=== PATIENT | female | born 1945 | race Caucasian/White ===

== ENCOUNTER 2019-03-10 14:14 | Inpatient (IN) ==
--- NOTE | 2019-03-10 14:56 | EKG Report ---
Test Performed on : 03/10/2019 2:48:06 PM Test Reason : SOB Blood Pressure : / mmHG Vent. Rate : 078 BPM Atrial Rate : 078 BPM P-R Int : 116 ms QRS Dur : 088 ms QT Int : 352 ms P-R-T Axes : 094 063 052 degrees QTc Int : 401 ms Normal sinus rhythm. Left ventricular hypertrophy with repolarization abnormality Abnormal ECG When compared with ECG of 11-JAN-2016 09:59, ST now depressed in Anterolateral leads T wave inversion now evident in Lateral leads Unconfirmed Result
[2019-03-10 15:16] LABS: ALLEN TEST YES; BLOOD TYPE ARTERIAL; HCO3-(ACT) 25.6 mmoll (20.0-26.0); METHB 0.9 % (0.0-1.5); O2(CT) 19.5 mL/dL (15.0-23.0); O2HB 92.7 % (95.0-99.0); PCO2(98.6) 57 mmHg (35-45); PO2(98.6) 86 mmHg (60-100); SAMPLE BLOOD; SAO2 98.1 % (95.0-100.0); THB 14.9 g/dL (11.5-17.4); pH(98.6) 7.31 (7.35-7.45)
[2019-03-10 15:17] LABS: MODALITY VENTIMASK
--- NOTE | 2019-03-10 15:41 | Diag Imaging Result Doc PS360 ---
EXAM: CHEST-1 VIEW INDICATION: sob TECHNIQUE: One view COMPARISON: None. FINDINGS: The lungs appear hyperinflated suggesting likely COPD. There are mild opacities at both lung bases suggesting atelectasis and/or minimal infiltrate. There is no discrete pleural fluid collection or pneumothorax. The cardiomediastinal silhouette and central vasculature are grossly unremarkable. IMPRESSION: Likely COPD and very vague opacities at the lung bases likely representing mild atelectasis and/or minimal infiltrate. Electronically signed by Mahendra Borges 03/10/2019 3:39 PM
[2019-03-10 15:47] LABS: BASO# 0.02 X1000 (0.0-0.2); BASO% 0.1 % (0.0-0.8); EOS# 0.01 X1000 (0.0-0.7); EOS% 0.1 % (0.0-10.0); HEMATOCRIT 44.1 % (37.0-47.0); HEMOGLOBIN 14.6 g/dL (12.0-16.0); IMM GRAN# 0.07 X1000 (0.0-0.04); IMM GRAN% 0.4 % (0.0-0.5); LYMPH% 4.1 % (20.5-51.1); MCH 31.9 PG (27-31); MCHC 33.1 g/dL (33-37); MCV 96.3 FL (81-99); MONO# 2.18 X1000 (0.11-0.59); MONO% 11.2 % (1.7-9.3); MPV 11.4 FL (7.4-10.4); NEUT# 16.34 X1000 (1.4-6.5); NEUT% 84.1 % (42.2-75.2); PLT 255 X1000 (130-400); RBC 4.58 XMIL (4.2-5.4); RDW 14.3 % (11.5-14.5); WBC 19.42 X1000 (4.8-10.8)
[2019-03-10 16:25] LABS: ALB/GLOB RATIO 0.9; ALBUMIN 3.6 g/dL (3.5-5.0); CALCIUM 9.7 mg/dL (8.8-10.2); POTASSIUM 5.5 mmol/L (3.5-5.1); TOTAL BILIRUBIN 1.21 mg/dL (0.20-1.00); TOTAL PROTEIN 7.4 g/dL (6.3-8.3)
[2019-03-10] MEDS ORDERED: ROCEPHIN 1 GM in NS 50 ML IV ONE (16:45)
[2019-03-10] MEDS ORDERED: ZOFRAN IV PRN (17:44)
[2019-03-10] MEDS: SOLU-MEDROL IV SCH ×2 (17:57→23:52)
[2019-03-10] MEDS ORDERED: NS 500 ML IV ONE (17:59)
[2019-03-10] MEDS ORDERED: NEXIUM IV SCH (18:00)
[2019-03-10] MEDS ORDERED: SODIUM CHLORIDE 0.9% INJ SCH (18:00)
--- NOTE | 2019-03-10 18:53 | HISTORY AND PHYSICAL ---
ADDENDUM REPORT I agree with most components of history, physical dictated by the nurse practitioner. HISTORY OF PRESENT ILLNESS: In brief, Ms. Barker is a 73-year-old lady with past medical history of COPD, tobacco abuse, hypothyroidism, anxiety, essential hypertension, moderate to severe aortic stenosis, who comes in with chief complaints of worsening shortness of breath since about 24 hours duration. Apparently, patient has had multiple COPD exacerbations over last 3 months and she has been to [facility]. According to records, she did require steroids at least twice in the last 2 months. She was never short free of shortness of breath over the last 4 weeks or so. However, it suddenly started getting worse yesterday. The patient continues to smoke heavily, so she decided to come to the [facility] Emergency Room where she was found to have acute hypercarbic respiratory failure and respiratory distress, so hospitalist team was consulted for further management. At the time of my evaluation, patient and her is at bedside. The patient has been actively coughing when she took off her 50% oxygen mask. Her oxygen saturation went down as low as 70% when I was present. She denies known history of coronary artery disease, congestive heart failure, DVT or PE. She denies known history of kidney disease. VITAL SIGNS: Temperature 97.9 degrees, pulse 75, respiratory rate 26, blood pressure 96/60 76% on room air. PHYSICAL EXAMINATION: GENERAL: She has tripod body position in severe respiratory distress. Oral cavity is moist, significantly decreased air entry bilateral lung carey with end-expiratory wheezes. S1, S2 normal. Tachycardic. No murmur, rub, or gallop. ABDOMEN: Soft, nontender. No lower extremity edema. LABORATORY DATA: Suggestive of leukocytosis, eosinophil count of 0.1%. Acute hypoxic hypercarbic respiratory failure, hyponatremia, hypokalemia, hypochloremia acute kidney injury, elevated proBNP. MICROBIOLOGY: Blood cultures are in lab. IMAGING: Chest x-ray had COPD with very vague opacities in lung bases. ASSESSMENT AND PLAN: 1. Acute hypoxic hypercarbic respiratory failure because of chronic obstructive pulmonary disease with acute exacerbation. 2. Active tobacco abuse. 3. Hyponatremia. 4. Hypokalemia. 5. Acute kidney injury. 6. Hypothyroidism. 7. Essential hypertension. PLAN: The patient's medical condition is critical. I discussed with the nursing team about starting her on stat BiPAP to keep as an SpO2 88 to 92 percent. I will also repeat ABG. I will start her on intravenous ceftriaxone, azithromycin. We will follow up with blood culture, sputum culture and urine antigens. The patient's code status is full as per discussed with the patient and her at bedside. CODE status is FULL as per discussion with patient and her . cc: Jun Gaitan MD MTDD
--- NOTE | 2019-03-10 19:49 | HISTORY AND PHYSICAL ---
CHIEF COMPLAINT: Shortness of breath. HISTORY OF PRESENT ILLNESS: This is a 73-year-old female with a history of COPD who presents to the emergency room complaining of shortness of breath with a productive cough with green secretions. She states that she was in her normal state of health until Sunday morning. She got up, got ready to go to [employer]ikhism and stated just that by the time she got ready she was exhausted and was unable to go. She has been tired since then and had increasing shortness of breath and cough. On arrival to the emergency room, she had an O2 saturation of 70 to 76 on room air. This did increase to the 88 to 90 range on 5 L nasal cannula, although when oxygen mask was removed, O2 saturations did fall into the high 70s, 80% to 81% range. She is speaking in 2 to 3 word phrases. She is sitting in a tripod position. Her chest x-ray reveals COPD with lower lobe bilateral atelectasis versus infiltrate. PAST MEDICAL HISTORY: 1. Chronic obstructive pulmonary disease. 2. Hypertension. 3. Hypothyroid. 4. Aortic stenosis. PAST SURGICAL HISTORY: Hysterectomy. SOCIAL HISTORY: She still smokes about a pack a day. She denies alcohol or illicit drug use. ALLERGIES: Symbicort, which causes hives. HOME MEDICATIONS: A list will be obtained by the nursing staff, and once verified, we will review and restart it as appropriate. REVIEW OF SYSTEMS: Discussed with patient with pertinent positives stated in HPI. She denied any syncope, dizziness, chest pain, palpitations, any nausea, vomiting, diarrhea, constipation, black or bloody vomitus or stools, any hematuria, dysuria, frequency, urgency. PHYSICAL EXAMINATION: GENERAL: This is a 73-year-old female who is sitting up in the bed in tripod position in mild distress. VITAL SIGNS: Blood pressure is 96/62 with a heart rate of 86, respirations are 22 to 26, O2 saturation are 86% to 88% or 90% on 5 L Ventimask. When mask is removed, saturation goes down to 78% to 80%. HEENT: Head is normocephalic, atraumatic. Mucous membranes are moist. NECK: Supple. Trachea midline. CARDIOVASCULAR: Regular rate and rhythm. S1 and S2 appreciated. She has no lower extremity edema. Calves are nontender bilateral. Peripheral pulses palpable x4 extremities. PULMONARY: Breath sounds with inspiratory and expiratory wheezes scattered throughout. She does have rhonchi that do not clear to cough. Chest rises and falls symmetric with respiration. GASTROINTESTINAL: Abdomen is soft, nontender, nondistended with bowel sounds in all 4 quadrants. NEUROLOGIC: She is alert and oriented x3. SKIN: Warm and dry. LABORATORY DATA: WBC is 19.4 with hemoglobin 14.6, hematocrit 44.1, and platelets 255,000. ABGs: pH is 7.3 with pCO2 of 57, pO2 of 86, and bicarb of 25.6. Sodium 127, potassium 5.5, BUN 24, creatinine 1 with a glucose of 121. Blood cultures are pending. IMAGING: Chest x-ray revealed COPD and vague opacities at the lung bases representing mild atelectasis and/or minimal infiltrate. ASSESSMENT AND PLAN: 1. Pneumonia bilateral lower lung bases. 2. Chronic obstructive pulmonary disease acute on chronic exacerbation. 3. Acute hypercarbic hypoxic respiratory failure. 4. Continued tobacco use. 5. Hypothyroid. 6. Hyponatremia. 7. Hyperkalemia. PLAN: The patient will be admitted to CICU with telemetry, with BiPAP to maintain a saturation of 88% to 92%. ABGs in an hour after BiPAP and then daily. Legionella urine as well as strep pneumoniae Sputum C&S. CBC, CMP,thyroid, and magnesium in the morning. DuoNebs q.4 hours or q.2 hours p.r.n. steroids to taper. Gentle hydration with saline at 50 an hour. Rocephin and azithromycin, and then further antibiotics will be culture driven. identify her home medications, and continue these as appropriate once she can tolerate. incentive spirometer. Plan discussed with Dr Gaitan. Further treatments pending hospital course. Dictated by CARTER Contreras for Jun Gaitan MD cc: CARTER Contreras MD I agree with most components of history, physical, assessment and plan. A separate addendum has been dictated. [id number]
[2019-03-10] MEDS: DUONEB (A & A) INH SCH ×2 (19:50→23:26)
[2019-03-10] MEDS: LOVENOX SUBQ SCH (21:10)
[2019-03-10 21:20] LABS: ALLEN TEST YES; BLOOD TYPE ARTERIAL; HCO3-(ACT) 24.8 mmoll (20.0-26.0); METHB 1.4 % (0.0-1.5); O2(CT) 19.7 mL/dL (15.0-23.0); O2HB 94.4 % (95.0-99.0); PO2(98.6) 118 mmHg (60-100); SAMPLE BLOOD; SAO2 99.3 % (95.0-100.0); THB 14.7 g/dL (11.5-17.4)
[2019-03-10] MEDS: ZITHROMAX 500 MG/NS 500 MG/250 ML IVPB IV SCH (21:21)
[2019-03-10 21:22] LABS: MODALITY BI PAP
[2019-03-10 21:23] LABS: PCO2(98.6) 78 mmHg (35-45)
[2019-03-10] MEDS ORDERED: TYLENOL PO PRN (21:33)
[2019-03-10] MEDS: XANAX PO PRN (22:11)
[2019-03-11 04:35] LABS: ALLEN TEST YES; BE -1.2 mmoll (-3.0-3.0); BLOOD TYPE ARTERIAL; METHB 1.3 % (0.0-1.5); O2(CT) 15.7 mL/dL (15.0-23.0); O2HB 95.1 % (95.0-99.0); PO2(98.6) 110 mmHg (60-100); SAMPLE BLOOD; SAO2 99.2 % (95.0-100.0); THB 11.6 g/dL (11.5-17.4); pH(98.6) 7.13 (7.35-7.45)
[2019-03-11 04:37] LABS: MODALITY BI PAP
[2019-03-11 04:38] LABS: PCO2(98.6) 90 mmHg (35-45)
[2019-03-11] MEDS ORDERED: ALBUTEROL NEB INH ONE (04:59)
[2019-03-11] MEDS: SOLU-MEDROL IV SCH ×3 (05:03→16:44)
[2019-03-11] MEDS ORDERED: SOLU-CORTEF IV ONE (05:57)
[2019-03-11] MEDS ORDERED: NORCURON IV ONE ×2 (06:05→07:25)
[2019-03-11 06:14] LABS: BASO# 0.01 X1000 (0.0-0.2); BASO% 0.1 % (0.0-0.8); HEMATOCRIT 43.5 % (37.0-47.0); HEMOGLOBIN 13.8 g/dL (12.0-16.0); IMM GRAN# 0.05 X1000 (0.0-0.04); IMM GRAN% 0.3 % (0.0-0.5); LYMPH# 0.26 X1000 (1.2-3.4); LYMPH% 1.8 % (20.5-51.1); MCH 31.7 PG (27-31); MCHC 31.7 g/dL (33-37); MCV 99.8 FL (81-99); MONO# 0.18 X1000 (0.11-0.59); MONO% 1.3 % (1.7-9.3); MPV 11.8 FL (7.4-10.4); NEUT# 13.86 X1000 (1.4-6.5); NEUT% 96.5 % (42.2-75.2); PLT 217 X1000 (130-400); RBC 4.36 XMIL (4.2-5.4); RDW 13.9 % (11.5-14.5); WBC 14.36 X1000 (4.8-10.8)
[2019-03-11] MEDS ORDERED: STERILE WATER INJ. ONE ×2 (06:37→06:42)
[2019-03-11] MEDS ORDERED: NS 1,000 ML ONE (07:02)
--- NOTE | 2019-03-11 07:04 | Diag Imaging Result Doc PS360 ---
EXAM: CHEST-PORTABLE 03/11/2019 HISTORY: et tube placement TECHNIQUE: AP portable at 0651 COMMENT: There is an endotracheal tube with its tip well above the tia. There is COPD with hyperinflation and flattening of the hemidiaphragms. There is ill-defined opacity in the costophrenic angle regions bilaterally. This was also present on 03/10/2019 but the degree of hyperinflation is worse. IMPRESSION: COPD with exacerbation. Electronically signed by Jluis Fields 03/11/2019 7:02 AM
[2019-03-11] MEDS ORDERED: SODIUM CHLORIDE 0.9% INJ SCH (07:10)
[2019-03-11] MEDS ORDERED: AMIDATE IV ONE (07:25)
[2019-03-11] MEDS: DUONEB (A & A) INH SCH ×5 (07:32→22:53)
[2019-03-11] MEDS ORDERED: NS 1,000 ML IV ONE ×2 (07:37→11:54)
[2019-03-11 07:44] LABS: BANDS 12 % (0-1); LARGE PLATELETS 1+; LYMPHS 2 % (21-51); SEGS 86 % (42-75)
[2019-03-11 08:07] LABS: ALLEN TEST YES; BE -4.1 mmoll (-3.0-3.0); BLOOD TYPE ARTERIAL; HCO3-(ACT) 21.7 mmoll (20.0-26.0); METHB 1.3 % (0.0-1.5); O2(CT) 17.1 mL/dL (15.0-23.0); O2HB 96.7 % (95.0-99.0); PCO2(98.6) 47 mmHg (35-45); PO2(98.6) 185 mmHg (60-100); SAMPLE BLOOD; SAO2 100.2 % (95.0-100.0); SRATE 18 BPM; THB 12.3 g/dL (11.5-17.4); TVOL 450 mL; pH(98.6) 7.29 (7.35-7.45)
[2019-03-11 08:08] LABS: MODALITY VENTILATOR
[2019-03-11 08:35] LABS: ALB/GLOB RATIO 1.3; ALBUMIN 3.5 g/dL (3.5-5.0); CALCIUM 9.4 mg/dL (8.8-10.2); CREATININE 1.1 mg/dL (0.5-0.9); TOTAL BILIRUBIN 0.28 mg/dL (0.20-1.00); TOTAL PROTEIN 6.2 g/dL (6.3-8.3)
[2019-03-11 08:46] LABS: POTASSIUM 6.1 mmol/L (3.5-5.1)
[2019-03-11] MEDS ORDERED: SPIRIVA INH SCH (09:09)
[2019-03-11] MEDS ORDERED: ALBUTEROL 0.5% INH CONC FOR HYPERKALEMIA INH ONE (09:10)
[2019-03-11 09:33] LABS: URINE SOURCE CATH
--- NOTE | 2019-03-11 09:42 | Diag Imaging Result Doc PS360 ---
EXAM: CHEST-PORTABLE 03/11/2019 HISTORY: NGT placement TECHNIQUE: AP portable semiupright at 0934 COMMENT: There is an endotracheal tube with its tip slightly below the thoracic inlet and an NG tube which passes below the diaphragm into the fundus of the stomach. There is hyper inflation of the lungs. There are ill-defined opacities in both costophrenic angle regions. This was also the case on the previous study at 0651. IMPRESSION: COPD. Bibasilar atelectasis versus fibrosis. Electronically signed by Jluis Fields 03/11/2019 9:40 AM
[2019-03-11] MEDS: LACTULOSE NG SCH ×2 (10:04→21:01)
[2019-03-11] MEDS ORDERED: PROTONIX PO SCH (10:15)
[2019-03-11 10:16] LABS: BILIRUBIN URINE NEGATIVE (NEGATIVE); BLOOD URINE NEGATIVE (NEGATIVE); COLOR YELLOW; GLUCOSE URINE NEGATIVE (NEGATIVE); KETONE URINE NEGATIVE (NEGATIVE); LEUKOCYTES URINE NEGATIVE (NEGATIVE); NITRITE URINE NEGATIVE (NEGATIVE); PH URINE 5.5; PROTEIN URINE 30 mg/dL (NEGATIVE); SP GRAVITY URINE 1.019; TURBIDITY URINE HAZY (CLEAR); UROBILINOGEN URINE NORMAL (NORMAL)
[2019-03-11 10:18] LABS: UR EPITHELIAL CELLS <10 /HPF (<10); URINE BACTERIA NEGATIVE /HPF; URINE RBC <10 /HPF (<10); URINE WBC <10 /HPF (<10)
[2019-03-11] MEDS: MORPHINE IV PRN ×2 (10:30→21:02)
--- NOTE | 2019-03-11 10:39 | PROGRESS NOTE ---
DATE: 03/11/2019 INTERVAL HISTORY: Overnight, the patient's pCO2 started increasing despite being on BiPAP, and she had started becoming hypotensive, and so the emergency room physician had intubated her. I evaluated her post intubation at around 7 a.m. On my initial evaluation, she had minimal air entry bilaterally, and after suctioning the air entry had increased. Currently, she is sedated, not responding to painful stimuli. VITALS: Temperature 97.7 degrees, pulse 62, respiratory rate 20, blood pressure 110/70 saturating 100% on mechanical ventilator. PHYSICAL EXAMINATION: HEENT: Pupils bilaterally equal reacting to light. Oral cavity has secretions. Respiratory: Significantly decreased air entry bilaterally with minimal air movement. She has mild crackles bilateral lung carey. Cardiovascular: S1, S2 normal. She had systolic murmur crescendo-decrescendo affecting second intercostal space with radiation to right carotid. No rub or gallop. Abdomen: Soft, nontender. Extremities: No lower extremity edema. TUBES/CATHETERS: She has endotracheal tube and urine catheter. LABS: Suggestive of improving leukocytosis. Normal hemoglobin, normal platelet count. Repeat blood gas after intubation suggests improvement in pH and pCO2. Normal lactate. Chemistry suggestive of acute kidney injury, hyperkalemia, improvement in hyponatremia and hypochloremia. Negative troponin's. Her TSH was low. Sputum culture and blood culture are in lab. EKG did have left ventricular hypertrophy with repolarization abnormality and some ST depressions in lateral leads, likely in the setting of profound hypoxia in current condition. She denies any known history of coronary artery disease. ASSESSMENT AND PLAN: 1. Acute hypoxic hypercarbic respiratory failure and septic shock due to chronic obstructive pulmonary disease acute exacerbation. Continue albuterol ipratropium nebulization, intravenous steroids, and IV Antibiotics and start norepinephrine to maintain MAP more than 65 mmHg for suspected septic shock from suspected pneumonia. Keep patient on De La Torre catheter for close input and output monitoring. The patient was yesterday counseled about stopping tobacco use, which is likely the trigger. 2. Hyponatremia, hypochloremia, acute kidney injury and hyperkalemia. Continue intravenous fluid resuscitation. Follow-up repeat basic metabolic panel. I will give her albuterol inhaled and lactulose for her hyperkalemia. 3. Hypothyroidism with low thyroid stimulating hormone. Once enteral access is established, I will start her on levothyroxine. Essential hypertension, currently hypotensive. 4. Disposition: Patient's condition is critical. More than 30 minutes of critical care time was spent in taking care of this patient. I went to the bedside. The patient's son was there. I explained to him about her critical condition and answered all of his questions. cc: Jun Gaitan MD MTDD
[2019-03-11] MEDS: SYNTHROID PO SCH (10:54)
[2019-03-11] MEDS: PRILOSEC ORAL SUSPENSION PO SCH (11:15)
[2019-03-11] MEDS: DIPRIVAN 1% 1,000 MG/100 ML BOTTLE IV SCH ×2 (11:15→22:14)
[2019-03-11 11:29] LABS: IRON SATURATION 9 %; TIBC 170 ug/dL; TOTAL IRON 16 ug/dL (49-151); UNBOUND IRON 154 ug/dL (112-346)
[2019-03-11] MEDS ORDERED: D50W SYRINGE IV ONE (11:48)
[2019-03-11] MEDS ORDERED: HUMULIN R IV ONE (11:48)
[2019-03-11 11:56] LABS: FERRITIN 600 ng/mL (13-150)
--- NOTE | 2019-03-11 12:20 | EKG Report ---
Test Performed on : 03/11/2019 07:03:58 AM Test Reason : ED. NO EKG ORDER FOR MUSE Blood Pressure : / mmHG Vent. Rate : 057 BPM Atrial Rate : 057 BPM P-R Int : 114 ms QRS Dur : 110 ms QT Int : 440 ms P-R-T Axes : 087 054 -29 degrees QTc Int : 428 ms Sinus bradycardia. Nonspecific ST abnormality Abnormal QRS-T angle, consider primary T wave abnormality Abnormal ECG When compared with ECG of 10-MAR-2019 14:48, (Unconfirmed) ST less depressed in Lateral leads T wave inversion now evident in Inferior leads T wave inversion no longer evident in Lateral leads Unconfirmed Result
--- NOTE | 2019-03-11 13:09 | PROVIDER DOCUMENTATION ---
This chart was entered by Macarena Ponce Scribe, acting as scribe for Ricky Davies MD. HPI-Respiratory General - General Source: patient - History of Present Illness-Resp Quality of Pain: reports: tightness Severity in ED: reports: moderate Onset/Duration: reports: 24 hours ago Timing: reports: still present, getting worse Associated Symptoms: reports: shortness of breath Similar Symptoms Previously?: Yes Recently seen or treated by another doctor?: No <Ricky Davies - Last Filed: 03/10/19 17:04> <Opal Cain - Last Filed: 03/11/19 07:31> - General Chief Complaint: Shortness of Breath Stated Complaint: COPD Time Seen by Provider: 03/10/19 15:07 Allergies/Adverse Reactions: Patient Allergies Allergy/AdvReac Type Severity Reaction Status Date / Time budesonide [From Symbicort] Allergy HIVES Verified 01/11/16 09:26 formoterol fumarate * Allergy HIVES Verified 01/11/16 09:26 [From Symbicort] Home Medications: Home Medication List Medication Instructions Recorded Confirmed Last Taken Type Alprazolam 0.25 mg PO PRN PRN 01/11/16 03/10/19 01/11/16 22:00 History Atenolol 25 mg PO DAILY 01/11/16 03/10/19 01/12/16 05:30 History LISINOpril [Prinivil] 5 mg PO DAILY 01/11/16 03/10/19 01/12/16 05:30 History Levothyroxine [Synthroid] 75 microgm PO DAILY 01/11/16 03/10/19 01/12/16 05:30 History Fluticasone/Vilanterol [Breo 1 inh INH ORDERED 03/10/19 03/10/19 Unknown History Ellipta 200-25 Mcg INH] Gabapentin 100 mg PO DAILY 03/10/19 03/10/19 Unknown History Mirtazapine 15 mg PO 03/10/19 Unknown History Tiotropium [place] Inhaler 1 inh INH ORDERED 03/10/19 03/10/19 Unknown History [Spiriva] - History of Present Illness-Resp Nature of Presenting Problem: Patient is a 73 year old female who presents with shortness of breath. Patient's O2 sat was 76% on room air on arrival to the ED. History of COPD. (Ricky Davies) Review of Systems - Adult - REVIEW OF SYSTEMS - ADULT ROS:: limited per condition Constitutional: reports: no symptoms reported Eyes: reports: no symptoms reported Ears, Nose, Mouth & Throat: reports: no symptoms reported Cardiovascular: reports: no symptoms reported Respiratory: reports: see HPI, shortness of breath. denies: cough, wheezing Gastrointestinal: reports: no symptoms reported Genitourinary: reports: no symptoms reported Musculoskeletal: reports: no symptoms reported Integumentary: reports: no symptoms reported Neurological: reports: no symptoms reported Psychiatric: reports: no symptoms reported Endocrine: reports: no symptoms reported Hematologic/Lymphatic: reports: no symptoms reported Allergic/Immunologic: reports: no symptoms reported All Other Systems: Reviewed and Negative <Ricky Davies - Last Filed: 03/10/19 17:04> Past History - Adult - PAST MEDICAL HISTORY-ADULT Review of Records: reports: Old Records Reviewed, Nursing Assessment Review, Medications Reviewed, Social history reviewed & non-contributory. Major Childhood Illnesses: reports: denies history Cardiovascular: reports: HTN Respiratory: reports: COPD Gastrointestinal: reports: denies history Obstetrical/Gynecological: reports: denies history Genitourinary: reports: denies history Musculoskeletal: reports: denies history Neurological: reports: denies history Psychiatric: reports: anxiety Endocrine/Immune: reports: thyroid disorder Other Conditions: reports: denies history - PRIOR SURGERIES/PROCEDURES Surgical/Procedure History: reports: reviewed, not pertinent - IMMUNIZATION STATUS Childhood Immunizations: See Nurse Assessment Flu Vaccine: See Nurse Assessment - FAMILY HISTORY Family History: reviewed, not pertinent - SOCIAL HISTORY Smoking: cigarettes, less than 1 pack/day Provider spent 3-5 mins advising pt. on dangers of tobacco.: Discussed manners to quit use, and f/u contacts for add'l counseling. Substance Use: denies Living Situation: family <Ricky Davies - Last Filed: 03/10/19 17:04> Physical Exam-General - PHYSICAL EXAM-ADULT Initial Vital Signs Reviewed: Yes - CONSTITUTIONAL General Appearance: alert, moderate distress. negative: lethargic - RESPIRATORY Respiratory: chest non-tender, respiratory distress (moderate), decreased breath sounds (bilateral), wheezing (bilateral), increased rate. negative: normal breath sounds - CARDIOVASCULAR Cardiovascular: normal peripheral pulses, regular rate, rhythm. negative: tachycardia - GASTROINTESTINAL (ABDOMEN) Abdominal Exam: normal bowel sounds, non tender, soft. negative: guarding - MUSCULOSKELETAL Extremity: normal inspection. negative: deformity, erythema, swelling - SKIN Integumentary: normal color, normal turgor, warm/dry. negative: diaphoresis, rash - NEUROLOGIC Neurologic: grossly normal. negative: aphasia, facial droop - PSYCHIATRIC Psych/Mental Status: normal mood/affect, oriented x 3. negative: anxious <Ricky Davies - Last Filed: 03/10/19 17:04> - HEART Score HEART Score: History: Slightly Suspicious HEART Score: ECG: Non-Specific Repolarization Disturbance/LBBB/PM HEART Score: Age: > or = 65 Years HEART Score: Risk Factors for Atherosclerotic Disease: 1 or 2 Risk Factors HEART Score: Troponin: < or = Normal Limit Total HEART Score:: 4 <Ricky Davies - Last Filed: 03/10/19 17:04> Progress - PLAN OF CARE/RESULTS Result Diagrams: 03/10/19 15:16 03/10/19 15:16 - EKG 1 Time of EKG reading by physician:: 14:48 EKG Read and Signed by:: Ricky Davies EKG Interpretation (*Must complete 3 of following elements*): Abnormal Rate: 78 Rhythm: normal sinus rhythm [place]: normal QRS: LVH (with repolarization abnormality) [place] Interval: normal Comments: abnormal ECG - XRAY 1 XRAY Study: Chest Impression: See EMR Report (EXAM: CHEST-1 VIEW INDICATION: sob TECHNIQUE: One view COMPARISON: None. FINDINGS: The lungs appear hyperinflated suggesting likely COPD. There are mild opacities at both lung bases suggesting atelectasis and/or minimal infiltrate. There is no discrete pleural fluid collection or pneumothorax. The cardiomediastinal silhouette and central vasculature are grossly unremarkable. IMPRESSION: Likely COPD and very vague opacities at the lung bases likely representing mild atelectasis and/or minimal infiltrate. Electronically signed by Mahendra Borges 03/10/2019 3:39 PM 03/10/19 [id number] Interpreting Physician: Mahendra Borges MD Dictated Date/Time: 03/10/19 0661 cc: Ricky Davies MD; None,PCP) - CONSULTS/PCP/HOSPITALIST Notification #1 *Consult/PCP/Hospitalist*: Estephanie QC SCIENTIST for hospitalist Time Discussed: 17:03 Reason/Comments: Dr. Davies consulted with Estephanie about patient. Consult Disposition: Will see in ED, Admit <Ricky Davies - Last Filed: 03/10/19 17:04> - PLAN OF CARE/RESULTS Result Diagrams: 03/11/19 05:15 03/10/19 15:16 <Opal Cain - Last Filed: 03/11/19 07:31> - PLAN OF CARE/RESULTS Progress/Plan/Lab Results: Laboratory Results - last 24 hr 03/10/19 03/10/19 03/10/19 15:11 15:16 15:16 WBC 19.42 H RBC 4.58 Hgb 14.6 Hct 44.1 MCV 96.3 MCH 31.9 H MCHC 33.1 RDW Std Deviation 14.3 Plt Count 255 MPV 11.4 H Immature Gran % (Auto) 0.4 Neut % (Auto) 84.1 H Lymph % (Auto) 4.1 L Blount % (Auto) 11.2 H Eos % (Auto) 0.1 Baso % (Auto) 0.1 Immature Gran # (Auto) 0.07 H Neut # (Auto) 16.34 H Lymph # (Auto) 0.80 L Blount # (Auto) 2.18 H Eos # (Auto) 0.01 Baso # (Auto) 0.02 Specimen Type ARTERIAL Sample Site R RADIAL pH 7.31 L pCO2 57 H* pO2 86 HCO3 25.6 Base Excess 1.0 Oxyhemoglobin 92.7 L ABG O2 Sat (Calculated) 19.5 ABG O2 Saturation 98.1 ABG Carboxyhemoglobin 4.70 H ABG Methemoglobin 0.9 Colby Test YES A-a O2 Difference 199.0 Total Hemoglobin 14.9 Lactate 1.40 Blood Gas Modality VENTIMASK FiO2 % 50.0 Sodium 127 L Potassium 5.5 H Chloride 89 L Carbon Dioxide 25 Anion Gap 13 BUN 24 H Creatinine 1.0 H Estimated GFR/1.73 m2 54 BUN/Creatinine Ratio 24 Glucose 121 H Calculated Osmolality 261 Calcium 9.7 Total Bilirubin 1.21 H AST 36 H ALT 22 Alkaline Phosphatase 128 H Troponin T Hry-[id number]-Ejyiuexhgwg Pept Total Protein 7.4 Albumin 3.6 Globulin 3.8 Albumin/Globulin Ratio 0.9 03/10/19 03/10/19 15:16 15:16 WBC RBC Hgb Hct MCV MCH MCHC RDW Std Deviation Plt Count MPV Immature Gran % (Auto) Neut % (Auto) Lymph % (Auto) Blount % (Auto) Eos % (Auto) Baso % (Auto) Immature Gran # (Auto) Neut # (Auto) Lymph # (Auto) Blount # (Auto) Eos # (Auto) Baso # (Auto) Specimen Type Sample Site pH pCO2 pO2 HCO3 Base Excess Oxyhemoglobin ABG O2 Sat (Calculated) ABG O2 Saturation ABG Carboxyhemoglobin ABG Methemoglobin Colby Test A-a O2 Difference Total Hemoglobin Lactate Blood Gas Modality FiO2 % Sodium Potassium Chloride Carbon Dioxide Anion Gap BUN Creatinine Estimated GFR/1.73 m2 BUN/Creatinine Ratio Glucose Calculated Osmolality Calcium Total Bilirubin AST ALT Alkaline Phosphatase Troponin T < 0.010 [id number]-[id number] Pept 4424 H Total Protein Albumin Globulin Albumin/Globulin Ratio Orders Category Date Time Status Admit - [facility] Routine AdmDCTranf 03/10/19 17:42 Active Activity - Up with Assistance ORDERED Care 03/10/19 17:42 Active Intake and Output-Strict Q 8-HR ASSESS Care 03/10/19 17:42 Active Nursing- Obtain EKG ONCE Care 03/10/19 15:11 Completed Vital Signs Order Q 8-HR ASSESS Care 03/10/19 17:42 Completed Z-Document. for Tele Applied ORDERED Care 03/10/19 17:44 Completed Full Liquid Diet Diet 03/10/19 17:43 Active cxr [CHEST-1 VIEW] [RAD] Stat Exams 03/10/19 15:11 Completed ABG [RESP] DAILY Lab 03/11/19 04:30 Completed ABG [RESP] Routine Lab 03/10/19 15:11 Completed ABG [RESP] Routine Lab 03/10/19 21:10 Completed BLOOD CULTURE [BLDCUL] Stat Lab 03/10/19 15:03 Results CBC WITH DIFF [HEME] DAILY Lab 03/11/19 05:15 Results CBC WITH DIFF [HEME] DAILY Lab 03/12/19 06:00 Ordered CBC WITH ELECTRONIC DIFF [HEME] Stat Lab 03/10/19 15:16 Completed COMPREHENSIVE METABOLIC PANEL [CHEM] DAILY Lab 03/12/19 06:00 Ordered COMPREHENSIVE METABOLIC PANEL [CHEM] DAILY Lab 03/13/19 06:00 Ordered COMPREHENSIVE METABOLIC PANEL [CHEM] Stat Lab 03/10/19 15:16 Completed LEGIONELLA AG URINE [[place]] Routine Lab 03/10/19 18:05 Ordered MAGNESIUM [CHEM] Routine Lab 03/11/19 05:15 Completed PRO B-NATRIURETIC PEPTIDE Stat Lab 03/10/19 15:16 Completed SPUTUM CULTURE WITH GRAM STAIN [] Routine Lab 03/10/19 22:15 Results STREP PNEUMO AG URINE [[place]] Routine Lab 03/10/19 18:05 Ordered TROPONIN T Stat Lab 03/10/19 15:16 Completed TSH Routine Lab 03/11/19 05:15 Completed 0.9% Sodium Chloride Inj [Ns] 500 ml Med 03/10/19 17:59 Discontinued IV 50 mls/hr Albuterol 2.5MG/Ipratrop 0.5MG [Duoneb (A & A)] Med 03/10/19 17:51 Active 3 ml INH Q2H PRN PRN Albuterol 2.5MG/Ipratrop 0.5MG [Duoneb (A & A)] Med 03/10/19 19:30 Active 3 ml INH RTQ4H.[place] Alprazolam [Xanax] Med 03/10/19 17:49 Active 0.25 mg PO BID PRN PRN Azithromycin 500 mg/Ns [Zithromax 500 mg/Ns] Med 03/10/19 18:00 Active 500 mg in 250 ml IV Q24H CefTRIAXONE [Rocephin] 1 gm Med 03/10/19 16:45 Discontinued 0.9% Sodium Chloride Inj [Ns] 50 ml IV NOW CefTRIAXONE [Rocephin] 1 gm Med 03/11/19 17:00 Active 0.9% Sodium Chloride Inj [Ns] 50 ml IV Q24H Enoxaparin [Lovenox] Med 03/10/19 18:00 Active 40 mg SUBQ Q24H Esomeprazole [Nexium] Med 03/10/19 18:00 Discontinued 40 mg IV Q24H Methylprednisolone Sod Succ [Solu-Medrol] Med 03/10/19 17:45 Active 60 mg IV Q6H Ondansetron [Zofran] Med 03/10/19 17:44 Active 4 mg IV Q4H PRN PRN Sodium Chloride 0.9% Med 03/10/19 18:00 Discontinued 5 ml INJ DIRECTED Aerosol Treatments Routine Oth 03/10/19 17:52 Completed BIPAP Stat Oth 03/10/19 17:42 Completed BIPAP Stat Oth 03/10/19 17:57 Completed Incentive Spirometer RTQ4H.MT Ot 03/10/19 19:30 Completed Incentive Spirometer RTQ4H.MT Ot 03/10/19 23:30 Completed Incentive Spirometer RTQ4H.MT Ot 03/11/19 07:30 Completed Incentive Spirometer RTQ4H.MT Ot 03/11/19 11:30 Completed Incentive Spirometer RTQ4H.MT Ot 03/11/19 15:30 Completed Incentive Spirometer RTQ4H.MT Ot 03/11/19 19:30 Completed Incentive Spirometer RTQ4H.MT Ot 03/11/19 23:30 Completed Incentive Spirometer RTQ4H.MT Ot 03/12/19 07:30 Completed Incentive Spirometer RTQ4H.MT Ot 03/12/19 11:30 Completed Incentive Spirometer RTQ4H.MT Ot 03/12/19 15:30 Completed Incentive Spirometer RTQ4H.MT Ot 03/12/19 19:30 Completed Incentive Spirometer RTQ4H.MT Ot 03/12/19 23:30 Completed Incentive Spirometer RTQ4H.[facility] 03/13/19 07:30 Completed Incentive Spirometer RTQ4H.[facility] 03/13/19 11:30 Completed Incentive Spirometer RTQ4H.[facility] 03/13/19 15:30 Completed Incentive Spirometer RTQ4H.[place] 03/13/19 19:30 Completed Telemetry [OM.EQ] Routine Oth 03/10/19 17:42 Active EKG [EKG] Stat Ther 03/10/19 14:49 Draft EKG [EKG] Stat Ther 03/10/19 15:11 Ordered Transfer/Admit Order [TRANSFER] Routine Transfer 03/10/19 18:42 Completed FLOOR CALLED AND TRANSFERRED THE PT FOR ELECTIVE INTUBATION TO ER. PT HAS COPD WITH CO2 RETENTION AND RESP ACIDOSIS. PT INTUBATED AFTER PROCEDURAL SEDATION. PT BECAME HYPOTENSIVE WITH SBP OF 68. STARTED ON NS BOLUS, BP UP TO 117/72. PT HAS NEW EKG CHANGES, CARDIAC ENZYMES SENT. PT SIGNED OUT TO DR BULLOCK AT BEDSIDE. DR. GEORGINA M.D ER PHYSICIAN (Opal Cain) Procedures - INTUBATION Time of Intubation: 06:47 (ETOMADATE 20 MG AND VACURONIUM 10 MG) Mallampati Class: 1 Intubation Method: orotracheal Equipment: ETT, Glidescope Tube Size (cm): 7.0 Pretreated with 100% Oxygen?: Yes Breath Sounds after Intubation: equal ETT Primary Tube Confirmation: Capnometry CO2 Change, Direct Visualization, Chest Rise and Fall, Tube placement verified on XRAY Intubation Complications: no complications Vent Settings: See Respiratory Therapy Notes Procedure Comment: FLOOR CALLED AND TRANSFERRED THE PT FOR INTUBATION TO ER. <Opal Cain - Last Filed: 03/11/19 07:31> Departure - Departure Date of Disposition Decision: 03/10/19 Time of Disposition Decision: 16:43 Certified Medical Emergency: Emergent - Critical Care Note This patient required my direct & personal management of CC.: Yes Total Time (mins): 46 Critical Care Statement: This patient required my direct personal management to treat or rule out processes, the absence of which, could potentiallly result in sudden, clinically significant life or limb threatening deterioration. <Ricky Davies - Last Filed: 03/10/19 17:04> <Opal Cain - Last Filed: 03/11/19 07:31> - Departure DIAGNOSIS: Pneumonia, Hypoxia, COPD exacerbation, CHF (congestive heart failure), Respiratory distress, Hyponatremia, Hyperkalemia Disposition: ADMITTED INPATIENT 09 Condition: Fair Attestation - Physician/ LUISITO Attestation Patient care was provided by Advanced Practice Provider:: No The physician spent face to face time with patient:: Yes Advanced Practice Provider documentation review:: Supervising physician onsite and consulted in the evaluation and care of this patient. The physician did have a face to face encounter with the patient. <Ricky Davies - Last Filed: 03/10/19 17:04> This chart was documented by the indicated scribe, (Macarena Ponce Scribe) and accurately reflects the services I performed and decisions made by me, Ricky Davies MD, as attested by the provider's signature.
[2019-03-11] MEDS: LEVOPHED 8 MG in D5 1/2 NS 250 ML IV SCH (13:35)
[2019-03-11 13:56] LABS: ALLEN TEST YES; BLOOD TYPE ARTERIAL; HCO3-(ACT) 21.7 mmoll (20.0-26.0); METHB 1.1 % (0.0-1.5); O2(CT) 15.9 mL/dL (15.0-23.0); O2HB 91.5 % (95.0-99.0); PO2(98.6) 69 mmHg (60-100); SAMPLE BLOOD; SRATE 12 BPM; THB 12.3 g/dL (11.5-17.4); TVOL 450 mL; pH(98.6) 7.21 (7.35-7.45)
[2019-03-11 14:01] LABS: MODALITY VENTILATOR; PCO2(98.6) 62 mmHg (35-45)
[2019-03-11] MEDS: ROCEPHIN 1 GM in NS 50 ML IV SCH (16:32)
[2019-03-11 17:03] LABS: CALCIUM 8.9 mg/dL (8.8-10.2); CREATININE 1.1 mg/dL (0.5-0.9); POTASSIUM 5.1 mmol/L (3.5-5.1)
[2019-03-11] MEDS ORDERED: PROTONIX IV SCH (18:00)
[2019-03-11 18:35] LABS: ALLEN TEST YES; BE -2.4 mmoll (-3.0-3.0); BLOOD TYPE ARTERIAL; METHB 1.3 % (0.0-1.5); O2(CT) 17.7 mL/dL (15.0-23.0); O2HB 94.3 % (95.0-99.0); PO2(98.6) 84 mmHg (60-100); SAMPLE BLOOD; SAO2 97.5 % (95.0-100.0); SRATE 12 BPM; THB 13.3 g/dL (11.5-17.4); TVOL 450 mL; pH(98.6) 7.22 (7.35-7.45)
[2019-03-11 18:36] LABS: MODALITY VENTILATOR; PCO2(98.6) 65 mmHg (35-45)
--- NOTE | 2019-03-11 19:51 | CONSULTATION ---
DATE OF CONSULTATION: 03/11/2019 REQUESTING PROVIDER: Dr. Jun Gaitan. REASON FOR CONSULTATION: COPD exacerbation, mechanical ventilator management. HISTORY OF PRESENT ILLNESS: This is a 73-year-old, female, with a medical history of COPD, with ongoing tobacco abuse, hypothyroidism, anxiety, essential hypertension, and aortic stenosis. She presented to the ER last night with acutely worsening shortness of breath and hypoxia. Initial workup in the ER revealed acute hypoxic hypercapnic respiratory failure, COPD exacerbation and acute kidney injury. She was initially put on a Ventimask with FiO2 of 50%. Later at night, she was put on a BiPAP mask, until early this morning, she required intubation. After intubated, she was transferred to ICU for further evaluation and management. At the time of my examination, patient just arrived to the ICU. Her respiration is even and unlabored at this time. She tolerates AC mechanical ventilator with FiO2 of 40%, tidal volume 450, and PEEP 5. She is not on any sedative drip at this time. Her eyes are half open, but she is not responsive to any verbal or physical stimuli. There is no family at the bedside. All other information is collected from the E-chart. PAST MEDICAL HISTORY: 1. COPD. 2. Tobacco abuse. 3. Hypothyroidism. 4. Anxiety. 5. Essential hypertension. 6. Aortic stenosis, moderate to severe. PAST SURGICAL HISTORY: Hysterectomy. SOCIAL HISTORY: The patient smokes about a pack per day. She has no history of alcohol or illicit drug use. FAMILY HISTORY: Unknown. ALLERGIES: Symbicort. REVIEW OF SYSTEMS: Unable to be obtained. PHYSICAL EXAMINATION: Vital Signs: Temperature 97.7, blood pressure 128/71, pulse 60, respiratory rate 27, oxygen saturation 94% on AC mechanical ventilator with spontaneous rate 18, FiO2 40%, tidal volume 450, and PEEP 5. General: Intubated. Eyes half open. Unresponsive to verbal or physical stimuli. No acute respiratory distress at this time. HEENT: Normocephalic, atraumatic. Trachea midline. ET tube in place. Mucosa pink and moist. Respiratory: Mechanically ventilated. Symmetrical excursion. Auscultation revealed inspiratory and expiratory wheezing worse on the left lung carey with coarse breathing sounds throughout all the lung carey. Cardiovascular: Regular rate and rhythm. Gastrointestinal: Soft, nondistended. Bowel sounds normoactive in all 4 quadrants. Extremities: No pedal edema. No cyanosis. No clubbing. Dorsalis pedis 1+ bilaterally. Neurologic: Unresponsive to any physical or verbal stimuli. LABORATORY DATA: White blood cell 14.36, hemoglobin 30.8, hematocrit 43.5, platelets 217,000. Sodium 134, potassium 6.1, chloride 94, carbon dioxide 25, BUN 37, creatinine 1.1, glucose 131. ABG, pH 7.13, pCO2 of 90, PO2 of 110, HCO3 of 24.0, base excess -1.2, and oxyhemoglobin 95.1. IMAGING DATA: Chest x-ray revealed COPD and bibasilar atelectasis versus fibrosis. ASSESSMENT: This is a 73-year-old, female, with a medical history of chronic obstructive pulmonary disease with ongoing tobacco abuse, hypothyroidism, anxiety, essential hypertension, and aortic stenosis. She has been admitted to the ICU with acute hypoxic hypercapnic respiratory failure, chronic obstructive pulmonary disease exacerbation and acute kidney injury. 1. Acute hypoxic hypercapnic respiratory failure, requiring intubation. 2. Chronic obstructive pulmonary disease exacerbation. 3. Ongoing tobacco abuse. 4. Acute kidney injury. PLAN: 1. Continue AC mechanical ventilator and we will start weaning trials when appropriate. 2. Continue antibiotic, steroid, and bronchodilators. 3. Follow up with ABG, CBC, CMP, and chest x-ray. Follow up with blood culture and sputum culture. 4. Continue GI and DVT prophylaxis. 5. Will start smoking cessation education when appropriate. 6. Further recommendations pending hospital course. Thank you for the courtesy of this consult. Dictated by CARTER Nickerson for Son Martinez MD cc: CARTER Nickerson MD [facility]
[2019-03-11] MEDS: ZITHROMAX 500 MG/NS 500 MG/250 ML IVPB IV SCH (21:01)
[2019-03-11] MEDS: LOVENOX SUBQ SCH (21:01)
[2019-03-12] MEDS: SOLU-MEDROL IV SCH ×5 (00:35→23:50)
[2019-03-12 04:42] LABS: BLOOD TYPE ARTERIAL; SAMPLE BLOOD
[2019-03-12 04:43] LABS: ALLEN TEST YES; BE -1.9 mmoll (-3.0-3.0); HCO3-(ACT) 23.3 mmoll (20.0-26.0); O2(CT) 17.4 mL/dL (15.0-23.0); O2HB 92.7 % (95.0-99.0); PO2(98.6) 80 mmHg (60-100); SAO2 93.6 % (95.0-100.0); SRATE 12 BPM; THB 13.3 g/dL (11.5-17.4); TVOL 450 mL; pH(98.6) 7.21 (7.35-7.45)
[2019-03-12 04:44] LABS: MODALITY VENTILATOR; PCO2(98.6) 69 mmHg (35-45)
[2019-03-12 05:47] LABS: BASO# 0.01 X1000 (0.0-0.2); BASO% 0.1 % (0.0-0.8); HEMATOCRIT 41.3 % (37.0-47.0); HEMOGLOBIN 13.3 g/dL (12.0-16.0); IMM GRAN# 0.07 X1000 (0.0-0.04); IMM GRAN% 0.4 % (0.0-0.5); LYMPH# 0.31 X1000 (1.2-3.4); LYMPH% 1.6 % (20.5-51.1); MCH 32.1 PG (27-31); MCHC 32.2 g/dL (33-37); MCV 99.8 FL (81-99); MONO# 0.68 X1000 (0.11-0.59); MONO% 3.6 % (1.7-9.3); MPV 12.1 FL (7.4-10.4); NEUT# 18.05 X1000 (1.4-6.5); NEUT% 94.3 % (42.2-75.2); PLT 266 X1000 (130-400); RBC 4.14 XMIL (4.2-5.4); RDW 14.1 % (11.5-14.5); WBC 19.12 X1000 (4.8-10.8)
[2019-03-12 06:00] LABS: AGAP 10; ALB/GLOB RATIO 0.9; ALKALINE PHOSPHATASE 134 U/L (32-104); BUN 36 mg/dL (8-22); CHLORIDE 101 mmol/L (98-107); COSMO 285; CREATININE 0.9 mg/dL (0.5-0.9); ESTIMATED GFR > 60; GLUCOSE 176 mg/dL (70-104); GOT 32 U/L (10-30); GPT 20 U/L (10-36); POTASSIUM 4.7 mmol/L (3.5-5.1); SODIUM 136 mmol/L (136-145); TCO2 25 mmol/L (25-35); TOTAL BILIRUBIN 0.23 mg/dL (0.20-1.00); TOTAL PROTEIN 6.3 g/dL (6.3-8.3)
[2019-03-12] MEDS: DUONEB (A & A) INH SCH ×5 (07:38→23:22)
--- NOTE | 2019-03-12 07:40 | Diag Imaging Result Doc PS360 ---
EXAM: CHEST-1 VIEW 03/12/2019 HISTORY: SOB TECHNIQUE: AP portable at 0525 COMMENT: There is hyperinflation. There is an endotracheal tube with its tip slightly below the thoracic inlet. There is an NG tube in the stomach. There is increased interstitial opacity in the lung bases as well as opacity in the costophrenic angles which is chronic and probably fibrotic. Compared to the previous study of 03/11/2019 the degree of hyperinflation may be slightly improved. IMPRESSION: Interstitial pulmonary edema. Hyperinflation and COPD. Basilar fibrosis. Electronically signed by Jluis Fields 03/12/2019 7:37 AM
[2019-03-12] MEDS: DIPRIVAN 1% 1,000 MG/100 ML BOTTLE IV SCH ×2 (07:51→20:19)
[2019-03-12] MEDS: LEVOPHED 8 MG in D5 1/2 NS 250 ML IV SCH (07:52)
[2019-03-12] MEDS: SYNTHROID PO SCH (07:59)
[2019-03-12] MEDS: PRILOSEC ORAL SUSPENSION PO SCH (07:59)
[2019-03-12] MEDS: LACTULOSE NG SCH ×2 (07:59→20:29)
[2019-03-12 11:49] LABS: ALLEN TEST YES; BLOOD TYPE ARTERIAL; HCO3-(ACT) 24.8 mmoll (20.0-26.0); METHB 1.4 % (0.0-1.5); O2(CT) 18.5 mL/dL (15.0-23.0); O2HB 94.3 % (95.0-99.0); PO2(98.6) 86 mmHg (60-100); SAMPLE BLOOD; THB 13.9 g/dL (11.5-17.4); pH(98.6) 7.21 (7.35-7.45)
[2019-03-12 11:53] LABS: PCO2(98.6) 75 mmHg (35-45)
[2019-03-12 11:54] LABS: MODALITY VENTILATOR
[2019-03-12] MEDS: NS 1,000 ML IV SCH (12:37)
[2019-03-12] MEDS: MORPHINE IV PRN (13:35)
[2019-03-12 15:37] LABS: ALLEN TEST YES; BE 1.8 mmoll (-3.0-3.0); BLOOD TYPE ARTERIAL; HCO3-(ACT) 26.3 mmoll (20.0-26.0); METHB 1.3 % (0.0-1.5); O2(CT) 18.2 mL/dL (15.0-23.0); PO2(98.6) 100 mmHg (60-100); SAMPLE BLOOD; SAO2 99.1 % (95.0-100.0); SRATE 12 BPM; THB 13.4 g/dL (11.5-17.4); TVOL 550 mL; pH(98.6) 7.34 (7.35-7.45)
[2019-03-12 15:41] LABS: MODALITY VENTILATOR; PCO2(98.6) 53 mmHg (35-45)
--- NOTE | 2019-03-12 15:50 | PROGRESS NOTE ---
DATE: 03/12/2019 INTERVAL HISTORY: The patient remains intubated. Remains on Levophed, although weaned down to only 5 mcg. May be able to come off soon. At the time of my exam, patient was off sedation for a weaning trial, but ended up failing spontaneous breathing trial and was later put back on sedation. Remains afebrile. No other acute events overnight. REVIEW OF SYSTEMS: Unable to obtain secondary to patient's intubation. LABORATORY DATA: WBC 19.1, hemoglobin 13.3, hematocrit 41.3, platelets 266,000. ABG with pH 7.21, pCO2 of 75, PO2 of 86 on ventilator. Sodium 136, BUN 36, creatinine 0.9, glucose 176. IMAGING: Chest x-ray with possible interstitial edema, hyperinflation, COPD, stable basilar fibrosis. VITALS: Temperature maximum 98.4 degrees, pulse 66, respirations 15, blood pressure 109/46, O2 saturation 93% on ventilator. PHYSICAL EXAMINATION: General: No acute distress. Patient is intubated, but off sedation. Vitals: As above. HEENT: Normocephalic, atraumatic. Moist mucous membranes. Neck: No cervical adenopathy. Cardiovascular: Slightly tachycardic, but regular. No murmurs noted. Pulmonary: Some significantly decreased air entry throughout. Significant wheezing throughout as well and scattered rhonchi. Abdomen: Soft, nontender, nondistended. Bowel sounds positive. Extremities: Peripheral pulses intact. No clubbing, cyanosis, or edema. Neurologic: Exam limited by patient's intubation, but arousing enough to follow with eyes to all quadrants, squeeze with both hands. No focal deficits identified. Psychiatric: Exam limited by intubation as above. Skin: No new rashes or lesions identified. ASSESSMENT AND PLAN: 1. Acute on likely chronic hypoxic and hypercapnic respiratory failure, chronic obstructive pulmonary disease exacerbation. The patient is still with severe hypercapnia. Oxygenation roughly stable. Failed spontaneous breathing trial earlier today. Afebrile. Question of possible edema on chest x-ray, but no history of heart failure. Echo a couple years ago within normal limits. Checking chest CT to better clarify if she has underlying edema and/or pneumonia. If edema is confirmed, then we will likely get BNP and may repeat echocardiogram. He the patient does have known moderate to severe aortic stenosis that could be contributing. Continue nebulizers, steroids, and antibiotics for now. Consider adding Lasix based on CT scan. 2. Tobacco abuse. We will awake overnight counselor patient on cessation when she is extubated. 3. Hypothyroidism. Continue home Synthroid. 4. Moderate to severe aortic stenosis. reportedly stable on last check. May reassess based on CT results as above. 5. Mildly elevated creatinine. The patient with baseline creatinine 0.7 to 0.8. Up to 1.1 just after admission. Coming back down with treatment of respiratory failure and possible sepsis as above. 6. Possible septic shock. Patient with possible pneumonia and hypotension requiring pressors. Pressor requirements decreasing but still present. Continue antibiotics for now and monitor. Lactate within normal limits on last several ABGs. 7. Hyponatremia, resolved with fluid and treatment of underlying issues. 8. Hyperkalemia, resolved with treatment. Now within normal limits. MTDBlanca
--- NOTE | 2019-03-12 17:01 | Diag Imaging Result Doc PS360 ---
EXAM: CT THORAX W/O CONTRAST HISTORY: ? pneumonia. ? Chf TECHNIQUE: CT chest without contrast COMPARISON: 11/07/2018 FINDINGS: There is endotracheal and nasogastric tubes. Trace right pleural fluid. No left fluid. No cardiomegaly. No aortic aneurysm. Prominent atherosclerosis. Calcified mediastinal and right hilar nodes with scattered granuloma. Severe emphysema. Tiny nodular infiltrates in the lower lungs. No consolidation. No bronchiectasis. IMPRESSION: Tiny nodular infiltrates. This exam was performed using automated exposure control, adjustment of mA or kV according to patient size, and/or use of iterative reconstruction technique. Electronically signed by Josh Collins 03/12/2019 4:59 PM
[2019-03-12] MEDS: ROCEPHIN 1 GM in NS 50 ML IV SCH (17:14)
[2019-03-12] MEDS: ZITHROMAX 500 MG/NS 500 MG/250 ML IVPB IV SCH (20:29)
[2019-03-12] MEDS: LOVENOX SUBQ SCH (20:29)
[2019-03-13] MEDS: DIPRIVAN 1% 1,000 MG/100 ML BOTTLE IV SCH ×3 (03:22→23:07)
[2019-03-13 04:50] LABS: ALLEN TEST YES; BE 0.9 mmoll (-3.0-3.0); BLOOD TYPE ARTERIAL; HCO3-(ACT) 25.6 mmoll (20.0-26.0); O2(CT) 16.8 mL/dL (15.0-23.0); O2HB 95.4 % (95.0-99.0); PO2(98.6) 127 mmHg (60-100); SAMPLE BLOOD; SAO2 95.9 % (95.0-100.0); SRATE 12 BPM; THB 12.4 g/dL (11.5-17.4); TVOL 450 mL; pH(98.6) 7.31 (7.35-7.45)
[2019-03-13 04:52] LABS: MODALITY VENTILATOR; PCO2(98.6) 56 mmHg (35-45)
[2019-03-13] MEDS: SOLU-MEDROL IV SCH ×3 (05:58→18:17)
--- NOTE | 2019-03-13 06:24 | Diag Imaging Result Doc PS360 ---
EXAM: CHEST-1 VIEW HISTORY: SOB TECHNIQUE: Chest single view COMPARISON: 03/12/2019 FINDINGS: The lungs are hyperexpanded. Endotracheal and nasogastric tubes in good position. The heart is not enlarged. The vessels are not distended. The tiny nodular infiltrates on the recent CT are poorly seen on the plain film. No effusion identified. IMPRESSION: Stable chest Electronically signed by Josh Collins 03/13/2019 6:22 AM
[2019-03-13 06:53] LABS: BUN 36 mg/dL (8-22); CALCIUM 9.6 mg/dL (8.8-10.2); TOTAL BILIRUBIN 0.15 mg/dL (0.20-1.00)
[2019-03-13 07:00] LABS: AGAP 11; ALBUMIN 2.8 g/dL (3.5-5.0); ALKALINE PHOSPHATASE 107 U/L (32-104); CHLORIDE 103 mmol/L (98-107); CREATININE 0.7 mg/dL (0.5-0.9); ESTIMATED GFR > 60; GLUCOSE 156 mg/dL (70-104); GOT 26 U/L (10-30); GPT 20 U/L (10-36); POTASSIUM 4.8 mmol/L (3.5-5.1); SODIUM 139 mmol/L (136-145); TCO2 25 mmol/L (25-35); TOTAL PROTEIN 5.7 g/dL (6.3-8.3)
[2019-03-13 07:07] LABS: COSMO 289
[2019-03-13] MEDS: DUONEB (A & A) INH SCH ×5 (07:37→23:41)
[2019-03-13 07:45] LABS: MAGNESIUM 2.3 mg/dL (1.5-2.7); PHOSPHORUS 2.8 mg/dL (2.7-4.5); PREALBUMIN 13.8 mg/dL (20-40)
[2019-03-13] MEDS: LACTULOSE NG SCH (08:26)
[2019-03-13] MEDS: PRILOSEC ORAL SUSPENSION PO SCH (08:26)
[2019-03-13] MEDS: SYNTHROID PO SCH (08:26)
[2019-03-13] MEDS: NS 1,000 ML IV SCH (08:27)
[2019-03-13] MEDS: MAXIPIME 1 GM in NS 50 ML IV SCH ×2 (09:52→20:01)
[2019-03-13 10:32] LABS: ALLEN TEST YES; BE 2.3 mmoll (-3.0-3.0); BLOOD TYPE ARTERIAL; HCO3-(ACT) 26.6 mmoll (20.0-26.0); O2(CT) 17.7 mL/dL (15.0-23.0); O2HB 93.3 % (95.0-99.0); PO2(98.6) 72 mmHg (60-100); SAMPLE BLOOD; THB 13.5 g/dL (11.5-17.4); pH(98.6) 7.27 (7.35-7.45)
[2019-03-13 10:35] LABS: MODALITY VENTILATOR; PCO2(98.6) 68 mmHg (35-45)
[2019-03-13] MEDS: HALDOL IV PRN (11:09)
[2019-03-13] MEDS ORDERED: STERILE WATER INJ. INJ ONE (11:57)
[2019-03-13] MEDS ORDERED: GEODON IM ONE (11:57)
[2019-03-13 12:38] LABS: ALLEN TEST YES; BE 0.3 mmoll (-3.0-3.0); BLOOD TYPE ARTERIAL; HCO3-(ACT) 25.1 mmoll (20.0-26.0); METHB 1.4 % (0.0-1.5); O2HB 94.1 % (95.0-99.0); PO2(98.6) 82 mmHg (60-100); SAMPLE BLOOD; THB 14.3 g/dL (11.5-17.4); pH(98.6) 7.22 (7.35-7.45)
[2019-03-13 12:40] LABS: MODALITY VENTILATOR; PCO2(98.6) 74 mmHg (35-45)
--- NOTE | 2019-03-13 13:29 | PROGRESS NOTE ---
DATE: 03/13/2019 INTERVAL HISTORY: Patient remains intubated, and sedated, although she arouses enough to follow some basic commands. Overbreathing on the vent some. She is still on propofol currently, but will likely try another spontaneous breathing trial later today. No acute events overnight. REVIEW OF SYSTEMS: Unable to obtain secondary to patient's mental status. LABORATORY: Initial ABG with pH 7.3, pCO2 56, PO2 127 on ventilator. Follow-up ABGs with pH 7.27, pCO2 68, and then pH 7.2, and pCO2 74. Complete metabolic panel largely unremarkable. Sputum culture growing Pseudomonas which is pansensitive. IMAGING: CT chest with severe emphysema and tiny nodular infiltrates which likely represent pneumonia. VITALS: T-max 98, pulse 90, respirations 21, blood pressure 114/59, and O2 saturation 92% on ventilator. PHYSICAL EXAMINATION: General: No acute distress, intubated and sedated, although will arouse and follow with eyes, and squeeze hands on command. HEENT: Normocephalic, atraumatic. Moist mucous membranes. No cervical adenopathy. Cardiovascular: Regular rate and rhythm. No murmurs noted. Pulmonary: Still with moderate to moderately decreased air entry throughout. Scattered rhonchi. Abdomen: Soft, nontender, and nondistended. Bowel sounds positive. Extremities: Peripheral pulses intact. No clubbing or cyanosis. Neurologic: Limited by mental status but moving all extremities to command. No clear focal deficits. Psychiatric: Sedated but arousable following commands as above, nonverbal secondary to intubation. Skin: No new rashes or lesions identified. ASSESSMENT AND PLAN: 1. Acute on likely chronic hypoxic and hypercapnic respiratory failure, chronic obstructive pulmonary disease exacerbation, and pneumonia. Patient's hypercapnia initially improved this morning, but tried on breathing trial and has again had progressive hypercapnia. Appears to have failed her breathing trial for today. Oxygenation remains roughly stable. Remains afebrile. There was some question of edema on chest x-ray but CT most consistent with severe emphysema and nodular infiltrates, most consistent with pneumonia. Sputum culture growing Pseudomonas so cefepime added to her antibiotics to cover for that. 2. Septic shock, likely secondary to above. Remains on a very low dose of Levophed, but suspect she will be able to be weaned off today. Lactic acid remains negative on ABGs. 3. Mildly elevated creatinine. Patient's baseline creatinine 0.7 to 0.8 up to 1.1 just after admission, and back to baseline of 0.7 today. 4. Tobacco abuse. We will marriage counselor patient on cessation when she is extubated. 5. Hypothyroidism. Continue home Synthroid. 6. Moderate to severe aortic stenosis reportedly stable on last check. 7. Hyponatremia resolved with fluids. Monitor. 8. Hyperkalemia also resolved with fluids and treatment for ANAT.
[2019-03-13] MEDS: LEVOPHED 8 MG in D5 1/2 NS 250 ML IV SCH (17:07)
[2019-03-13] MEDS: LOVENOX SUBQ SCH (20:01)
[2019-03-13] MEDS: ZITHROMAX 500 MG/NS 500 MG/250 ML IVPB IV SCH (20:57)
[2019-03-14] MEDS: SOLU-MEDROL IV SCH ×5 (01:08→18:36)
[2019-03-14] MEDS: DIPRIVAN 1% 1,000 MG/100 ML BOTTLE IV SCH ×3 (04:23→20:02)
[2019-03-14] MEDS: NS 1,000 ML IV SCH (04:24)
[2019-03-14 04:29] LABS: ALLEN TEST YES; BE 3.3 mmoll (-3.0-3.0); BLOOD TYPE ARTERIAL; HCO3-(ACT) 27.5 mmoll (20.0-26.0); METHB 1.3 % (0.0-1.5); O2(CT) 16.9 mL/dL (15.0-23.0); O2HB 96.2 % (95.0-99.0); PCO2(98.6) 48 mmHg (35-45); PO2(98.6) 115 mmHg (60-100); SAMPLE BLOOD; SAO2 98.6 % (95.0-100.0); SRATE 12 BPM; THB 12.4 g/dL (11.5-17.4); TVOL 450 mL; pH(98.6) 7.39 (7.35-7.45)
[2019-03-14 04:30] LABS: MODALITY VENTILATOR
--- NOTE | 2019-03-14 06:17 | Diag Imaging Result Doc PS360 ---
EXAM: CHEST-1 VIEW HISTORY: SOB TECHNIQUE: Chest single view COMPARISON: 03/13/2019 FINDINGS: Endotracheal and nasogastric tubes in good position. The lungs are hyperexpanded. No cardiomegaly. Questionable trace pleural fluid. No consolidation. IMPRESSION: Stable chest Electronically signed by Josh Collins 03/14/2019 6:15 AM
[2019-03-14 06:33] LABS: BASO# 0.01 X1000 (0.0-0.2); BASO% 0.1 % (0.0-0.8); HEMATOCRIT 39.1 % (37.0-47.0); HEMOGLOBIN 12.4 g/dL (12.0-16.0); IMM GRAN# 0.04 X1000 (0.0-0.04); IMM GRAN% 0.3 % (0.0-0.5); LYMPH# 0.28 X1000 (1.2-3.4); LYMPH% 2.3 % (20.5-51.1); MCH 31.7 PG (27-31); MCHC 31.7 g/dL (33-37); MONO# 0.62 X1000 (0.11-0.59); MONO% 5.1 % (1.7-9.3); MPV 11.8 FL (7.4-10.4); NEUT# 11.27 X1000 (1.4-6.5); NEUT% 92.2 % (42.2-75.2); PLT 209 X1000 (130-400); RBC 3.91 XMIL (4.2-5.4); RDW 14.3 % (11.5-14.5); WBC 12.22 X1000 (4.8-10.8)
[2019-03-14 06:45] LABS: AGAP 8; BUN 36 mg/dL (8-22); CALCIUM 8.7 mg/dL (8.8-10.2); CHLORIDE 106 mmol/L (98-107); COSMO 290; CREATININE 0.5 mg/dL (0.5-0.9); ESTIMATED GFR > 60; GLUCOSE 137 mg/dL (70-104); POTASSIUM 4.8 mmol/L (3.5-5.1); SODIUM 140 mmol/L (136-145); TCO2 26 mmol/L (25-35)
[2019-03-14 07:23] LABS: LYMPHS 2 % (21-51); SEGS 98 % (42-75)
[2019-03-14] MEDS: DUONEB (A & A) INH SCH ×5 (07:56→23:13)
[2019-03-14] MEDS: BREO ELLIPTA 200/25 MCG INH INH SCH (07:56)
[2019-03-14] MEDS: MAXIPIME 1 GM in NS 50 ML IV SCH ×2 (08:07→20:03)
[2019-03-14] MEDS: PRILOSEC ORAL SUSPENSION PO SCH (08:07)
[2019-03-14] MEDS: SYNTHROID PO SCH (08:08)
[2019-03-14] MEDS ORDERED: ATIVAN IV ONE (11:58)
[2019-03-14] MEDS ORDERED: ATIVAN ONE (12:01)
--- NOTE | 2019-03-14 14:51 | PULMONOLOGY PROGRESS NOTE ---
DATE: 03/14/2019 SUBJECTIVE: The patient responds to painful stimuli. She remains on mechanical ventilation. She was placed on a weaning vacation earlier upon my rounding in the unit and she subsequently failed due to tachypnea. OBJECTIVE: Vital Signs: The patient has been afebrile for the last 24 hours. Blood pressure 107/53, heart rate 81, respiratory rate 32, oxygen saturation 94%. HEENT: Pupils are equal and reactive. Oropharynx is clear neck is supple. Chest: Reveals occasional rhonchi with prolonged expiratory phase. Cardiac: S1, S2. Abdomen: Scaphoid and soft. Extremities: Without edema. LABORATORIES: Chest x-ray reveals hyperinflation with trace effusion but no definite sedation. Arterial blood gas reveals a pH of 7.39, pCO2 of 48, PO2 of 115. Sodium 140, potassium 4.8, chloride 106, bicarbonate 26, BUN 36, creatinine 0.5, prealbumin yesterday 3.89. White blood count 12.22, hemoglobin 12.4, 209,000. IMPRESSION: 73-year-old with: 1. Acute hypoxemic and acute hypercapnic respiratory failure. 2. Chronic obstructive pulmonary disease. 3. Ongoing tobacco use at the time of admission. 4. Protein calorie malnutrition. 5. Small effusion. 6. Minor infiltrates. PLAN: 1. Continue current antibiotic regimen. 2. Continue daily weaning trials. We will attempt a dose of anxiolytics prior to her next weaning trial. 3. Continue tube feeds. 4. Encourage smoking cessation. 5. Prognosis is guarded. Time spent in critical care management 30+ minutes. cc: Jerad Saavedra MD
--- NOTE | 2019-03-14 16:51 | PROGRESS NOTE ---
DATE: 03/14/2019 INTERVAL HISTORY: Patient remains intubated and sedated. Oxygen requirements are roughly stable. Afebrile overnight. I have not been able to wean off Levophed so far. No other acute events overnight.. REVIEW OF SYSTEMS: Unable to obtain secondary to patient's mental status. LABS: WBC 12.2, hemoglobin 12.4, hematocrit 39.1, platelets 209. ABG with pH 7.39, pCO2 48, PO2 115 on 40% via vent. Basic metabolic panel unremarkable. VITALS: T-max 98.0, pulse 50, respirations 12, blood pressure 132/55, O2 saturation 94% on ventilator. PHYSICAL EXAMINATION: General: No acute distress, intubated and sedated. Vitals: As above. HEENT: Normocephalic, atraumatic. Moist mucous membranes. Neck: No cervical adenopathy. Cardiovascular: Mildly bradycardic, but regular. No murmurs noted. Pulmonary: Still with moderately decreased air entry throughout with some scattered rhonchi. Abdomen: Soft, nontender, nondistended. Bowel sounds positive. Extremities: Peripheral pulses intact. No clubbing or cyanosis. Neurologic: A little more sedated today, but pupils equal, round, reactive to light. No clear focal deficits. Psychiatric: A little more sedated, arouses only briefly. Not following any commands currently. Skin: No new rashes or lesions identified. ASSESSMENT AND PLAN: 1. Acute on likely chronic hypoxic and hypercapnic respiratory failure, chronic obstructive pulmonary disease exacerbation, pneumonia. The patient's hypercapnia initially improved, but has repeatedly failed spontaneous breathing trials. Arterial blood gas this morning shows hypercapnia that is likely approaching her baseline with pCO2 48, but we will see how she does with her spontaneous breathing trial. Up to this point, she has fatigued rapidly on CPAP. Initial x-ray slightly unclear, but CT showing severe emphysema and nodular infiltrates most consistent with pneumonia. Sputum culture grew out Pseudomonas, so cefepime was added. Since the addition of cefepime, her white count does seem to be coming down. Thus, we will continue current antibiotic regimen. Continue steroids and nebulizers. Monitor closely. 2. Septic shock, likely secondary to pneumonia above. The patient remains on low dose Levophed, but have not been able to wean her off of it completely. Blood pressure fairly marginal this morning, so uncertain if we will be able to wean her off of that today. Lactic acid remains negative on arterial blood gases. 3. Acute kidney injury. Patient baseline creatinine 0.7. Creatinine 1.1 after admission. With fluids and treatment of her underlying infection, she has returned to baseline. 4. Tobacco abuse. Will summer counselor patient on cessation when she is extubated. 5. Hypothyroidism. Continue on Synthroid. 6. Moderate to severe aortic stenosis, reportedly stable on last check. 7. Hyponatremia, resolved. Monitor. 8. Hyperkalemia, resolved. 9. Nutrition: Starting tube feeds as patient has been difficult to wean off of the ventilator. TIME SPENT: Approximately 35 minutes critical care time spent immediately available to the patient, examining patient, reviewing labs and images, and making medical decisions.
[2019-03-14] MEDS: ZITHROMAX 500 MG/NS 500 MG/250 ML IVPB IV SCH (20:03)
[2019-03-14] MEDS: LOVENOX SUBQ SCH (20:03)
[2019-03-15] MEDS: SOLU-MEDROL IV SCH ×5 (00:36→23:30)
[2019-03-15] MEDS: NS 1,000 ML IV SCH ×2 (00:36→20:37)
[2019-03-15] MEDS: DIPRIVAN 1% 1,000 MG/100 ML BOTTLE IV SCH ×3 (04:06→20:37)
[2019-03-15 04:37] LABS: ALLEN TEST YES; BE 3.7 mmoll (-3.0-3.0); BLOOD TYPE ARTERIAL; HCO3-(ACT) 27.6 mmoll (20.0-26.0); METHB 1.5 % (0.0-1.5); O2(CT) 18.9 mL/dL (15.0-23.0); O2HB 91.1 % (95.0-99.0); PCO2(98.6) 49 mmHg (35-45); PO2(98.6) 62 mmHg (60-100); SAMPLE BLOOD; SAO2 93.9 % (95.0-100.0); SRATE 12 BPM; THB 14.8 g/dL (11.5-17.4); TVOL 550 mL; pH(98.6) 7.39 (7.35-7.45)
[2019-03-15 04:40] LABS: MODALITY VENTILATOR
[2019-03-15 06:58] LABS: BASO# 0.01 X1000 (0.0-0.2); BASO% 0.1 % (0.0-0.8); EOS# 0.01 X1000 (0.0-0.7); EOS% 0.1 % (0.0-10.0); HEMATOCRIT 40.9 % (37.0-47.0); HEMOGLOBIN 13.2 g/dL (12.0-16.0); IMM GRAN# 0.06 X1000 (0.0-0.04); IMM GRAN% 0.5 % (0.0-0.5); LYMPH% 3.2 % (20.5-51.1); MCH 32.2 PG (27-31); MCHC 32.3 g/dL (33-37); MCV 99.8 FL (81-99); MONO# 0.45 X1000 (0.11-0.59); MONO% 3.6 % (1.7-9.3); MPV 12.2 FL (7.4-10.4); NEUT% 92.5 % (42.2-75.2); PLT 210 X1000 (130-400); RDW 14.5 % (11.5-14.5); WBC 12.33 X1000 (4.8-10.8)
[2019-03-15] MEDS ORDERED: ATIVAN IV ONE (07:00)
--- NOTE | 2019-03-15 07:06 | Diag Imaging Result Doc PS360 ---
EXAM: CHEST-1 VIEW 03/15/2019 HISTORY: SOB TECHNIQUE: AP portable at 0514 COMMENT: There is minimal basilar atelectasis and interstitial opacity consistent with pulmonary edema. There is an endotracheal tube with its tip just below the thoracic inlet and an NG tube with its tip in the fundus of the stomach. Compared to 03/14/2019 there has been some improvement in the atelectasis in the left base. IMPRESSION: Slightly improved atelectasis. Pulmonary edema. Electronically signed by Jluis Fields 03/15/2019 7:04 AM
[2019-03-15 07:23] LABS: AGAP 12; BUN 41 mg/dL (8-22); CALCIUM 8.7 mg/dL (8.8-10.2); CHLORIDE 104 mmol/L (98-107); COSMO 294; CREATININE 0.6 mg/dL (0.5-0.9); ESTIMATED GFR > 60; GLUCOSE 120 mg/dL (70-104); POTASSIUM 4.9 mmol/L (3.5-5.1); SODIUM 142 mmol/L (136-145); TCO2 26 mmol/L (25-35)
[2019-03-15 07:34] LABS: PHOSPHORUS 2.2 mg/dL (2.7-4.5)
[2019-03-15] MEDS: DUONEB (A & A) INH SCH ×5 (08:27→23:15)
[2019-03-15] MEDS: BREO ELLIPTA 200/25 MCG INH INH SCH (08:30)
[2019-03-15] MEDS: SYNTHROID PO SCH (09:21)
[2019-03-15] MEDS: MAXIPIME 1 GM in NS 50 ML IV SCH ×2 (09:21→20:37)
[2019-03-15] MEDS: PRILOSEC ORAL SUSPENSION PO SCH (09:23)
[2019-03-15 12:11] LABS: ALLEN TEST YES; BE 4.7 mmoll (-3.0-3.0); BLOOD TYPE ARTERIAL; HCO3-(ACT) 28.3 mmoll (20.0-26.0); METHB 1.3 % (0.0-1.5); O2(CT) 18.2 mL/dL (15.0-23.0); PO2(98.6) 60 mmHg (60-100); SAMPLE BLOOD; SAO2 91.4 % (95.0-100.0); THB 14.6 g/dL (11.5-17.4); pH(98.6) 7.33 (7.35-7.45)
[2019-03-15 12:12] LABS: MODALITY VENTILATOR; O2HB 88.7 % (95.0-99.0); PCO2(98.6) 62 mmHg (35-45)
--- NOTE | 2019-03-15 14:06 | PROGRESS NOTE ---
DATE: 03/15/2019 INTERVAL HISTORY: Patient remains intubated and sedated. We have finally been able to wean her off of Levophed entirely. Blood pressures appear stable off the pressor. Respiratory status roughly stable. Failed spontaneous breathing trial again yesterday. The plan is to try again today with something for anxiety during the process. No other acute events overnight. Remains afebrile. REVIEW OF SYSTEMS: Unable to obtain secondary to patient mental status. LABS: WBC 12.3, hemoglobin 13.2, hematocrit 40.9, platelets 210,000. ABG with pH 7.39, pCO2 49, PO2 62 on the ventilator. Basic metabolic panel essentially unremarkable. VITALS: T-max 98.6 degrees, pulse 89, respirations 37, blood pressure 140/55, O2 saturation 91% on ventilator. PHYSICAL EXAMINATION: General: No acute distress. Vitals: As above, intubated and sedated. HEENT: Normocephalic, atraumatic. Moist mucous membranes. No cervical adenopathy. Cardiovascular: Regular rate and rhythm. No murmurs noted. Pulmonary: Moderately decreased air entry throughout, unchanged. Some slightly improved scattered rhonchi. Abdomen: Soft, nontender, nondistended. Bowel sounds positive. Extremities: Peripheral pulses intact. No clubbing or cyanosis. Neurologic: Remain sedated, but pupils still equal round reactive to light. Withdraws to stimuli in all extremities. No clear focal deficits. Psychiatric: Withdraws to stimuli as above, but does not arouse, track, follow commands. Skin: No new rashes or lesions identified. ASSESSMENT AND PLAN: 1. Acute on likely chronic hypoxic and hypercapnic respiratory failure, chronic obstructive pulmonary disease exacerbation, pneumonia. Patient continues to fail spontaneous breathing trials. Pulmonology plan on trying again today with a little medication for anxiety during the process. We will see how she does. Her white count is has come down since the addition of cefepime after her sputum cultures grew out Pseudomonas. Continue current antibiotic steroids and nebulizers and monitor closely. 2. Septic shock, likely secondary to pneumonia above. The patient finally weaned off of Levophed. Blood pressure is stable at this point. Continue to monitor, but likely largely resolved at this point. 3. Acute kidney injury, now resolved. Creatinine 1.1 on admission. Now back to baseline creatinine of approximately 0.7. 4. Tobacco abuse. Will plan on counseling patient once she is extubated successfully. 5. Moderate to severe aortic stenosis reportedly stable on last check. 6. Hypothyroidism,. Continue home Synthroid. 7. Hyponatremia. Monitor. 8. Hyperkalemia resolved. 9. Nutrition. On tube feeds which will continue until patient can be extubated and started on a diet.
--- NOTE | 2019-03-15 17:28 | PULMONOLOGY PROGRESS NOTE ---
DATE: 03/15/2019 SUBJECTIVE: The patient is arousable off sedation. She does have periods of tachypnea. She appears to be doing better with the Ativan scheduled earlier today. OBJECTIVE: Vital Signs: The patient has been afebrile for the last 24 hours. Blood pressure 106/55, heart rate 74, respiratory rate 22, oxygen saturation 90% on mechanical ventilation. HEENT: Pupils are equal and reactive. Oropharynx appears clear. Neck: Supple. Chest: Reveals prolonged expiratory phase with mild wheezing. Cardiac: S1-S2. Abdomen: Soft with good bowel sounds. Extremities: Without edema. LABORATORIES: No new microbiology data. White blood count 12.3, hemoglobin 13.2, platelet count 210,000. Sodium 142, potassium 4.9, chloride 104, bicarbonate 26, BUN 41, creatinine 0.6, albumin 3.8. Chest x-ray reveals hyperinflation, slight decreased infiltrate at the left base. Arterial blood gas #1 pH 7.39, pCO2 of 49, pO2 of 62. Arterial blood gas on spontaneous breathing trial, pH 7.33, pCO2 of 62, pO2 of 60. IMPRESSION: A 73-year-old with 1. Acute hypoxemic and acute hypercapnic respiratory failure. 2. Chronic obstructive pulmonary disease with exacerbation. 3. Pseudomonal pneumonia which appears to be minor. 4. Ongoing tobacco use. 5. Protein calorie malnutrition. 6. Small stable effusion. PLAN: 1. Continue current antibiotic regimen. 2. Continue daily weaning trials. She did improve today. 3. Continue tube feeds. 4. Encourage smoking cessation. Time spent in critical care: 30+ minutes cc: Jerad Saavedra MD [facility]
[2019-03-15] MEDS: ZITHROMAX 500 MG/NS 500 MG/250 ML IVPB IV SCH (20:37)
[2019-03-15] MEDS: LOVENOX SUBQ SCH (20:38)
[2019-03-16] MEDS: DUONEB (A & A) INH PRN (03:49)
[2019-03-16 04:24] LABS: ALLEN TEST YES; BE 6.4 mmoll (-3.0-3.0); BLOOD TYPE ARTERIAL; HCO3-(ACT) 29.8 mmoll (20.0-26.0); METHB 1.3 % (0.0-1.5); O2(CT) 17.4 mL/dL (15.0-23.0); O2HB 93.6 % (95.0-99.0); PCO2(98.6) 48 mmHg (35-45); PO2(98.6) 69 mmHg (60-100); SAMPLE BLOOD; SAO2 96.2 % (95.0-100.0); SRATE 12 BPM; THB 13.2 g/dL (11.5-17.4); TVOL 550 mL; pH(98.6) 7.43 (7.35-7.45)
[2019-03-16 04:25] LABS: MODALITY VENTILATOR
[2019-03-16] MEDS: SOLU-MEDROL IV SCH ×4 (04:41→17:09)
[2019-03-16] MEDS: DIPRIVAN 1% 1,000 MG/100 ML BOTTLE IV SCH (04:42)
[2019-03-16 06:43] LABS: AGAP 11; BUN 43 mg/dL (8-22); CALCIUM 8.9 mg/dL (8.8-10.2); CHLORIDE 107 mmol/L (98-107); COSMO 293; CREATININE 0.6 mg/dL (0.5-0.9); ESTIMATED GFR > 60; GLUCOSE 116 mg/dL (70-104); POTASSIUM 5.4 mmol/L (3.5-5.1); SODIUM 141 mmol/L (136-145); TCO2 23 mmol/L (25-35)
--- NOTE | 2019-03-16 06:55 | Diag Imaging Result Doc PS360 ---
EXAM: CHEST-1 VIEW 03/16/2019 HISTORY: SOB TECHNIQUE: AP portable at 0516 COMMENT: There is probable bilateral pleural effusion and pulmonary edema. There is some platelike atelectasis in the lung bases. There is an endotracheal tube with its tip below the thoracic inlet and an NG tube which passes below the diaphragm. Compared to 03/15/2019 there has been slight increase in the basilar opacity bilaterally. IMPRESSION: Slightly worsened pulmonary edema and/or pleural effusions. Electronically signed by Jluis Fields 03/16/2019 6:53 AM
[2019-03-16] MEDS: DUONEB (A & A) INH SCH ×5 (08:12→23:26)
[2019-03-16] MEDS: BREO ELLIPTA 200/25 MCG INH INH SCH (08:15)
[2019-03-16] MEDS: MAXIPIME 1 GM in NS 50 ML IV SCH ×2 (08:25→20:49)
[2019-03-16] MEDS: PRILOSEC ORAL SUSPENSION PO SCH (08:25)
[2019-03-16] MEDS: SYNTHROID PO SCH (08:25)
[2019-03-16 08:54] LABS: BASO# 0.02 X1000 (0.0-0.2); BASO% 0.2 % (0.0-0.8); HEMATOCRIT 39.3 % (37.0-47.0); IMM GRAN# 0.09 X1000 (0.0-0.04); IMM GRAN% 0.7 % (0.0-0.5); LYMPH% 1.5 % (20.5-51.1); MCH 32.4 PG (27-31); MCHC 33.1 g/dL (33-37); MONO# 0.29 X1000 (0.11-0.59); MONO% 2.2 % (1.7-9.3); NEUT# 12.35 X1000 (1.4-6.5); NEUT% 95.4 % (42.2-75.2); PLT 226 X1000 (130-400); RBC 4.01 XMIL (4.2-5.4); RDW 14.5 % (11.5-14.5); WBC 12.95 X1000 (4.8-10.8)
[2019-03-16] MEDS ORDERED: ATIVAN IV ONE (10:16)
[2019-03-16 12:21] LABS: BLOOD TYPE ARTERIAL; SAMPLE BLOOD
[2019-03-16 12:22] LABS: ALLEN TEST YES; BE 6.5 mmoll (-3.0-3.0); HCO3-(ACT) 29.6 mmoll (20.0-26.0); METHB 0.5 % (0.0-1.5); O2(CT) 16.1 mL/dL (15.0-23.0); PO2(98.6) 52 mmHg (60-100); SAO2 89.1 % (95.0-100.0); THB 13.6 g/dL (11.5-17.4); pH(98.6) 7.36 (7.35-7.45)
[2019-03-16 12:25] LABS: MODALITY VENTILATOR; O2HB 84.5 % (95.0-99.0); PCO2(98.6) 60 mmHg (35-45)
--- NOTE | 2019-03-16 13:56 | PROGRESS NOTE ---
DATE: 03/16/2019 INTERVAL HISTORY: The patient has continued to fail her breathing trials. She remains intubated and sedated. She remains off pressors. Afebrile. No other acute events overnight. REVIEW OF SYSTEMS: Unable to obtain secondary to patient mental status. LABS: WBC 12.95, hemoglobin 13, hematocrit 39.3, platelets 226, ABG with pH 7.36, pCO2 60, pCO2 52 on ventilator, sodium 141, potassium 5.4, BUN 43, creatinine 0.6, glucose 116. VITALS: T-max 98.6 degrees, pulse 87, respirations 28, blood pressure 151/75, O2 saturation 90% on ventilator. PHYSICAL EXAMINATION: General: No acute distress, intubated and sedated. HEENT: Normocephalic, atraumatic. Moist mucous membranes. Cardiovascular: Regular rate and rhythm. No murmurs noted. Pulmonary: Slightly decreased air entry, but largely clear to auscultation. Abdomen: Soft, nontender, nondistended. Bowel sounds positive. Extremities: Peripheral pulses intact. No clubbing, cyanosis, edema. Neurologic: Limited by sedation. Pupils equal, round, reactive to light. No obvious focal deficits. Psychiatric: Sedated. Withdraws to stimuli. ASSESSMENT AND PLAN: 1. Acute on likely chronic hypoxic hypercapnic respiratory failure, COPD with exacerbation, pneumonia. Patient continues to fail spontaneous breathing trials. Air entry overall improved and little to no wheeze at this point so may be primarily pneumonia on top of her underlying chronic obstructive pulmonary disease. Continue antibiotics, nebs and steroids. Pulmonary following. Currently on antibiotics with cefepime and azithromycin. 2. Septic shock, now resolved. Monitor. 3. Acute kidney injury, resolved. 4. Tobacco abuse. Will counseling program leader the patient after extubation. 5. Hypothyroidism. Continue home Synthroid. 6. Hyponatremia, resolved. 7. Hyperkalemia. Slightly high again today but pretty minimal. Will monitor for now but will likely have to give Kayexalate if it trends up. 8. Moderate to severe aortic stenosis, reportedly stable on last check. 9. Nutrition. Continue tube feeds while she is intubated.
[2019-03-16] MEDS: D5W 1,000 ML IV SCH (14:51)
--- NOTE | 2019-03-16 15:19 | PULMONOLOGY PROGRESS NOTE ---
DATE: 03/16/2019 SUBJECTIVE: The patient is arousable. She was observed for over an hour on spontaneous breathing trial. OBJECTIVE: Vital Signs: The patient has been afebrile for the last 24 hours. Blood pressure 128/86, heart rate 100, respiratory rate 29, oxygen saturation 95%. HEENT: Pupils are equal and reactive. Oropharynx appears clear. Neck: Supple. Chest: Reveals rhonchi bilaterally. Cardiac: S1, S2. Abdomen: Scaphoid and soft. Extremities: Are without edema. LABORATORIES: Chest x-ray reveals slight increased atelectasis/effusion in the bases. Sodium 141, potassium 5.4, chloride 107, bicarbonate 23, BUN 53, creatinine 0.6. White blood count 12.9, hemoglobin 13.0, platelet count 226,000. Arterial blood gas #1 pH 7.43, pCO2 of 48, PO2 of 69 on mechanical ventilation. Arterial blood gas #2 on a reduced oxygen concentration pH 7.36, pCO2 of 60, pO2 of 52. IMPRESSION: 1. A 73-year-old with severe chronic obstructive pulmonary disease and exacerbation. 2. Acute hypoxemic and acute hypercapnic respiratory failure. 3. Pseudomonal pneumonia. 4. Ongoing tobacco use. 5. Protein calorie malnutrition. 6. Small effusions. DISCUSSION: A 73-year-old problems outlined above. This is hospital day #6. She is ventilating appropriately on a spontaneous breathing trial without increased work of breathing. She is having difficulty clearing secretions with the endotracheal tube in place. I believe there will be a limited window for successful extubation of this elderly patient. PLAN: 1. Extubate to BiPAP today. 2. Transition normal saline to D5W to decrease hyperchloremia. 3. Hold tube feeds today. 4. Encourage smoking cessation if the patient tolerates extubation and is able to be discharged home. Time spent in critical care management: 30+ minutes cc: MD EVAN Otero
[2019-03-16] MEDS: ZITHROMAX 500 MG/NS 500 MG/250 ML IVPB IV SCH (20:49)
[2019-03-16] MEDS: XANAX PO PRN (20:50)
[2019-03-16] MEDS: LOVENOX SUBQ SCH (20:50)
[2019-03-16] MEDS: HALDOL IV PRN (20:50)
[2019-03-17] MEDS: SOLU-MEDROL IV SCH ×4 (00:40→16:54)
[2019-03-17] MEDS: MORPHINE IV PRN ×4 (02:53→20:05)
[2019-03-17] MEDS: DUONEB (A & A) INH PRN (03:35)
[2019-03-17] MEDS: D5W 1,000 ML IV SCH ×2 (04:59→18:25)
--- NOTE | 2019-03-17 06:06 | Diag Imaging Result Doc PS360 ---
EXAM: CHEST-1 VIEW HISTORY: SOB TECHNIQUE: Portable chest single view COMPARISON: 03/16/2019 FINDINGS: The lungs are hyperexpanded. The heart is not enlarged. Minimal vascular prominence. There are no infiltrates. Questionable tiny effusions. The endotracheal tube has been removed. Nasogastric tube overlies the esophagus. The upper abdomen is not included on the right appears to enter the stomach. IMPRESSION: Slight improvement. Electronically signed by Josh Collins 03/17/2019 6:04 AM
[2019-03-17] MEDS: BREO ELLIPTA 200/25 MCG INH INH SCH (07:56)
[2019-03-17] MEDS: DUONEB (A & A) INH SCH ×5 (07:56→23:23)
[2019-03-17 08:58] LABS: BASO# 0.02 X1000 (0.0-0.2); BASO% 0.1 % (0.0-0.8); HEMATOCRIT 43.8 % (37.0-47.0); HEMOGLOBIN 14.5 g/dL (12.0-16.0); IMM GRAN# 0.25 X1000 (0.0-0.04); LYMPH# 0.28 X1000 (1.2-3.4); LYMPH% 1.1 % (20.5-51.1); MCH 31.9 PG (27-31); MCHC 33.1 g/dL (33-37); MCV 96.3 FL (81-99); MONO# 1.08 X1000 (0.11-0.59); MONO% 4.2 % (1.7-9.3); NEUT# 24.37 X1000 (1.4-6.5); NEUT% 93.6 % (42.2-75.2); PLT 289 X1000 (130-400); RBC 4.55 XMIL (4.2-5.4); RDW 14.2 % (11.5-14.5)
[2019-03-17 09:23] LABS: AGAP 9; BUN 41 mg/dL (8-22); CALCIUM 9.4 mg/dL (8.8-10.2); CHLORIDE 102 mmol/L (98-107); COSMO 292; CREATININE 0.8 mg/dL (0.5-0.9); ESTIMATED GFR > 60; GLUCOSE 174 mg/dL (70-104); POTASSIUM 4.6 mmol/L (3.5-5.1); SODIUM 139 mmol/L (136-145); TCO2 28 mmol/L (25-35)
[2019-03-17 09:49] LABS: ALLEN TEST YES; BE 4.2 mmoll (-3.0-3.0); BLOOD TYPE ARTERIAL; METHB 1.2 % (0.0-1.5); O2(CT) 19.2 mL/dL (15.0-23.0); O2HB 91.8 % (95.0-99.0); PO2(98.6) 67 mmHg (60-100); SAMPLE BLOOD; SAO2 94.9 % (95.0-100.0); THB 14.9 g/dL (11.5-17.4); pH(98.6) 7.34 (7.35-7.45)
[2019-03-17 09:51] LABS: MODALITY VENTIMASK; PCO2(98.6) 59 mmHg (35-45)
[2019-03-17] MEDS: MAXIPIME 1 GM in NS 50 ML IV SCH ×2 (10:00→22:35)
[2019-03-17] MEDS: SYNTHROID PO SCH (10:00)
[2019-03-17] MEDS: HALDOL IV PRN ×2 (10:00→16:54)
[2019-03-17] MEDS: PRILOSEC ORAL SUSPENSION PO SCH (10:10)
[2019-03-17 10:30] LABS: BANDS 2 % (0-1); LYMPHS 2 % (21-51); MONO 2 % (1-9); SEGS 94 % (42-75)
--- NOTE | 2019-03-17 10:30 | EKG Report ---
Test Performed on : 03/17/2019 08:52:36 AM Test Reason : CCU. No order in [place] Blood Pressure : / mmHG Vent. Rate : 138 BPM Atrial Rate : 138 BPM P-R Int : 112 ms QRS Dur : 092 ms QT Int : 278 ms P-R-T Axes : 000 034 149 degrees QTc Int : 421 ms Sinus tachycardia. with frequent premature ventricular complexes. ST & T wave abnormality, consider lateral ischemia Abnormal ECG When compared with ECG of 11-MAR-2019 07:03, (Unconfirmed) premature ventricular complexes. are now present Vent. rate has increased BY 81 BPM QRS duration has decreased T wave inversion now evident in Lateral leads Confirmed by Noe Clark MD ([id number]) on 03/17/2019 12:42:09 PM
--- NOTE | 2019-03-17 10:51 | Diag Imaging Result Doc PS360 ---
EXAM: CHEST-PORTABLE HISTORY: NG placement TECHNIQUE: Chest abdomen single view COMPARISON: 5:12 AM FINDINGS: Nasogastric tube overlies the esophagus and stomach and appears to be in good position. No other interval change. Electronically signed by Josh Collins 03/17/2019 10:48 AM
[2019-03-17] MEDS: XANAX PO PRN ×2 (12:27→20:05)
--- NOTE | 2019-03-17 12:35 | PROGRESS NOTE ---
DATE: 03/17/2019 INTERVAL HISTORY: The patient was successfully extubated. Patient quite confused. Does occasionally follow commands. No other acute events overnight. REVIEW OF SYSTEMS: Unable to obtain secondary to the patient's mental status. LABORATORY DATA: WBC 26, hemoglobin 14.5, hematocrit 43.8, platelets 289,000. ABG with pH 7.34, pCO2 59, PO2 67. Sodium 139, potassium 4.6, chloride 102, bicarb 28, BUN 41, and creatinine 0.8. OBJECTIVE: Vital Signs: T-max 98.6 degrees, pulse 118, respirations 20, blood pressure 173/105, O2 saturation 93% on 50% Venturi mask. General: The patient anxious-appearing on Venturi mask. HEENT: Normocephalic, atraumatic. Moist mucous membranes. No cervical adenopathy. Cardiovascular: Tachycardic but regular. No murmurs noted. Pulmonary: Still with slightly decreased air entry throughout. Abdomen: Soft, nontender, nondistended. Bowel sounds positive. Extremities: Peripheral pulses intact. No clubbing, cyanosis, or edema. Neurologic: Limited by patient's mental status but moving all extremities tracking well with eyes. Pupils equal, round, reactive to light. No clear focal deficits. Psychiatric: Patient anxious appearing, oriented to person at best, but does not consistently answer any questions or follow any commands. ASSESSMENT AND PLAN: 1. Acute on likely chronic hypoxic and hypercapnic respiratory failure, chronic obstructive pulmonary disease with exacerbation, pneumonia. The patient was successfully extubated yesterday but has been on and off BiPAP since then. No further wheezing but still some decreased air entry on exam, so continuing steroids and nebulizers. Continue antibiotics with cefepime and azithromycin. Patient does seem to be improving, although slowly. 2. Septic shock, resolved. Monitor. 3. Acute kidney injury, resolved. Monitor. 4. Metabolic encephalopathy. Since extubation, patient has been significantly confused, likely related to her underlying medical issues. Continue to monitor. 5. Tobacco abuse. Will health counselor patient after extubation. 6. Hypothyroidism. Continue home Synthroid. 7. Hyponatremia, resolved. 8. Hyperkalemia, resolved. Monitor. 9. Moderate to severe aortic stenosis reportedly stable on last check. 10. Nutrition. The patient pulled NG tube out last night, so tube feeds on hold. Will see if she clears enough to take food by mouth or if we will need to replace the NG tube.
[2019-03-17] MEDS: TENORMIN PO SCH (16:54)
[2019-03-17] MEDS: PRINIVIL PO SCH (16:54)
[2019-03-17] MEDS: ZITHROMAX 500 MG/NS 500 MG/250 ML IVPB IV SCH (20:05)
[2019-03-17] MEDS: LOVENOX SUBQ SCH (20:05)
[2019-03-18] MEDS: SOLU-MEDROL IV SCH ×3 (00:50→16:34)
[2019-03-18] MEDS: HALDOL IV PRN ×2 (00:50→20:09)
[2019-03-18 04:03] LABS: ALLEN TEST YES; BE 7.4 mmoll (-3.0-3.0); BLOOD TYPE ARTERIAL; HCO3-(ACT) 30.7 mmoll (20.0-26.0); METHB 1.5 % (0.0-1.5); O2(CT) 19.5 mL/dL (15.0-23.0); O2HB 95.8 % (95.0-99.0); PO2(98.6) 105 mmHg (60-100); SAMPLE BLOOD; SAO2 98.9 % (95.0-100.0); THB 14.4 g/dL (11.5-17.4)
[2019-03-18 04:10] LABS: MODALITY BI PAP; PCO2(98.6) 55 mmHg (35-45)
[2019-03-18] MEDS: MORPHINE IV PRN (04:57)
[2019-03-18 06:18] LABS: BASO# 0.01 X1000 (0.0-0.2); HEMOGLOBIN 13.9 g/dL (12.0-16.0); IMM GRAN# 0.13 X1000 (0.0-0.04); IMM GRAN% 0.6 % (0.0-0.5); LYMPH# 0.28 X1000 (1.2-3.4); LYMPH% 1.3 % (20.5-51.1); MCH 31.7 PG (27-31); MCHC 33.1 g/dL (33-37); MCV 95.9 FL (81-99); MONO# 0.87 X1000 (0.11-0.59); MONO% 4.1 % (1.7-9.3); MPV 11.5 FL (7.4-10.4); NEUT# 20.05 X1000 (1.4-6.5); PLT 230 X1000 (130-400); RBC 4.38 XMIL (4.2-5.4); RDW 13.9 % (11.5-14.5); WBC 21.34 X1000 (4.8-10.8)
--- NOTE | 2019-03-18 06:34 | Diag Imaging Result Doc PS360 ---
CHEST-1 VIEW - 03/18/2019 INDICATION: SOB COMPARISON: 03/17/2019 FINDINGS: Stable nasogastric tube in good position. Stable hyperexpanded lungs compatible COPD. Worsening opacification at the right lung base, likely mostly effusion. There is a small left effusion as well. There is pulmonary vascular congestion. There are curly B lines in the lung bases compatible with interstitial pulmonary edema. IMPRESSION: Worsening interstitial edema and pleural effusion mainly at the right lung base. Electronically signed by Joe Chicas 03/18/2019 6:31 AM
[2019-03-18 06:38] LABS: MONO 2 % (1-9); SEGS 98 % (42-75)
[2019-03-18 07:03] LABS: AGAP 9; BUN 40 mg/dL (8-22); CALCIUM 9.1 mg/dL (8.8-10.2); CHLORIDE 98 mmol/L (98-107); COSMO 280; CREATININE 0.6 mg/dL (0.5-0.9); ESTIMATED GFR > 60; GLUCOSE 135 mg/dL (70-104); POTASSIUM 4.6 mmol/L (3.5-5.1); SODIUM 134 mmol/L (136-145); TCO2 27 mmol/L (25-35)
[2019-03-18] MEDS: BREO ELLIPTA 200/25 MCG INH INH SCH (07:43)
[2019-03-18] MEDS: DUONEB (A & A) INH SCH ×5 (07:43→23:28)
[2019-03-18] MEDS: TENORMIN PO SCH (08:14)
[2019-03-18] MEDS: SYNTHROID PO SCH (08:14)
[2019-03-18] MEDS: LASIX IV SCH ×2 (08:14→12:51)
[2019-03-18] MEDS: MAXIPIME 1 GM in NS 50 ML IV SCH ×2 (08:14→20:09)
[2019-03-18] MEDS: PRINIVIL PO SCH (08:14)
[2019-03-18] MEDS: SEROQUEL NG SCH ×2 (08:14→20:09)
--- NOTE | 2019-03-18 08:17 | PROGRESS NOTE ---
DATE: 03/18/2019 INTERVAL HISTORY: No acute events. Patient has been agitated, requiring multiple doses of intravenous morphine, haloperidol. No other acute overnight events. She did have episodes of tachycardia yesterday, which on my review looked atrial fibrillation, which had resolved. Currently, she is sinus on monitor. SUBJECTIVE: She is alert, but confused. She states that her last week. She is not in any acute distress. She is not able to contribute to the history meaningfully, though follows simple commands like shaking hands and opening mouth intermittently. VITALS: Temperature of 97.6 degrees, pulse of 64, respiratory rate of 16,blood pressure 150/70s. She is saturating 100% on 50% Venturi mask. Input and output suggests she is positive 9 L since admission. PHYSICAL EXAMINATION: General: Cachectic. Has bilateral upper and lower extremity edema. Does not appear in any acute distress. HENT: No pallor, cyanosis, clubbing, or icterus. She has nasogastric tube, De La Torre catheter and Venturi mask. Respiratory: She has decreased air entry bilateral inframammary region with inspiratory crackles. No wheeze or rhonchi. Cardiovascular: S1, S2 normal. No murmur, rub, or gallop. Abdomen: Soft, nontender. Extremities: Bilateral lower extremity edema. She is moving both upper and lower extremities spontaneously with rather slow movement. Eyes: Pupils are bilaterally equal reacting to light. LABS: Suggestive of leukocytosis with 0% eosinophil count, compensated hypercapnic respiratory failure and stable BUN and creatinine. MICROBIOLOGY: Sputum culture initially was growing Pseudomonas aeruginosa, for which she is on intravenous cefepime. ASSESSMENT AND PLAN: 1. Acute hypoxic hypercapnic respiratory failure on chronic hypercapnic respiratory failure due to acute chronic obstructive pulmonary disease exacerbation and right lower lobe Pseudomonas pneumonia, status post intubation between March 11 and March 16. Continue to cycle BiPAP and Venturi mask as tolerated, Honey intravenous cefepime day 1 was 03/13/2019, to give at least 10 to 14 days course, decrease intravenous methylprednisolone dose and stop intravenous azithromycin. I will give intravenous Lasix and stop intravenous fluids. 2. Acute encephalopathy likely metabolic due to medical illnesses, as well as hospital-acquired delirium. Start patient on Seroquel and continue intravenous haloperidol and morphine as needed. 3. Sinus tachycardia versus paroxysmal atrial fibrillation, now resolved. I will continue atenolol and lisinopril for essential hypertension as well. 4. Others. Continue omeprazole for stress ulcer prophylaxis; enoxaparin for deep venous thrombosis prophylaxis; levothyroxine for history of hypothyroidism; Her septic shock and acute kidney injury have resolved. 5. Disposition: More than 30 minutes of critical care time was spent in taking care of this patient. Plan of care discussed with nursing team. I will also start patient on physical therapy. cc: Jun Gaitan MD MTDD
[2019-03-18] MEDS: PRILOSEC ORAL SUSPENSION PO SCH (08:35)
--- NOTE | 2019-03-18 09:51 | PROVIDER PROGRESS NOTE ---
Progress Note Evaluation time: [id number] 03/18/2019 SUBJECTIVE * Awake, in bed, no acute distress * Afebrile * Agitated at an earlier time per nurse * Currently eyes open, but not answering questions; appear depressive * SaO2 stable at high 90s to 100 on a VM 50% OBJECTIVE Vital Signs: T 97.6, BP 153/76, MO 72, RR 16, SaO2 100% on VM 50% PHYSICAL EXAMINATION: General: [id number]-[id number]; lying in bed with eyes open, but not answering any questions, in no acute distress. HEENT: Normocephalic, atraumatic. Trachea midline. NG tube in place. Mucosa pink and moist. Respiratory: Barrel chest, even and unlabored; Symmetrical excursion; Auscultation revealed early inspiratory crackles bilaterally. Cardiovascular: Regular rate and rhythm. Gastrointestinal: Soft, nondistended. Bowel sounds normoactive in all 4 quadrants. Extremities: BLE pitting edema 1+. No cyanosis. No clubbing. Cold to touch; Dorsalis pedis 1+ bilaterally. Neurologic: Appear depressive; not answering questions, but follow my command to squeeze my hands with BUE equally . LABORATORY DATA: White blood cell 21.34, hemoglobin 13.9, hematocrit 42.0, platelets 230,000. Sodium 134, potassium 4.6, chloride 98, carbon dioxide 27, BUN 40, creatinine 0.6, glucose 135. ABG, pH 7.40, pCO2 of 55, pO2 of 105, HCO3 of 30.7, base excess 7.4, and oxyhemoglobin 95.8. IMAGING DATA: Chest x-ray revealed worsening interstitial edema and pleural effusion mainly at the right lung base. ASSESSMENT: 1. Acute hypoxic hypercapnic respiratory failure, intubated from 03/11/2019 to 03/16/2019; extubated since the early afternoon of 03/16/2019. 2. Chronic obstructive pulmonary disease exacerbation. 3. RLL Pseudomonas pneumonia 4. Encephalopathy 5. Tobacco abuse. PLAN: 1. Continue supplemental oxygen and BiPAP. Will decrease BiPAP FiO2 from 60% to 50%. 2. Continue Cefepime per Dr. Gaitan; agree to taper Solu-medrol and start diuretics; continue bronchodilators. 3. Follow up with ABG, CBC, CMP, and chest x-ray. Follow up with swallow evaluation; 4. Continue GI and DVT prophylaxis. 5. Will start smoking cessation education when patient becomes more alert and oriented. 6. Further recommendations pending hospital course. Thank you for the consult.
[2019-03-18] MEDS ORDERED: LASIX IV ONE (13:58)
[2019-03-18] MEDS: LOVENOX SUBQ SCH (20:09)
[2019-03-19] MEDS: MORPHINE IV PRN ×2 (03:36→22:33)
[2019-03-19 04:16] LABS: ALLEN TEST YES; BE 14.6 mmoll (-3.0-3.0); BLOOD TYPE ARTERIAL; HCO3-(ACT) 36.3 mmoll (20.0-26.0); METHB 1.6 % (0.0-1.5); O2(CT) 21.1 mL/dL (15.0-23.0); O2HB 96.6 % (95.0-99.0); PO2(98.6) 126 mmHg (60-100); SAMPLE BLOOD; SAO2 99.7 % (95.0-100.0); THB 15.4 g/dL (11.5-17.4); pH(98.6) 7.48 (7.35-7.45)
[2019-03-19 04:17] LABS: MODALITY BI PAP; PCO2(98.6) 55 mmHg (35-45)
[2019-03-19] MEDS: SOLU-MEDROL IV SCH (05:54)
[2019-03-19 06:34] LABS: BASO# 0.01 X1000 (0.0-0.2); EOS# 0.07 X1000 (0.0-0.7); EOS% 0.3 % (0.0-10.0); HEMATOCRIT 44.7 % (37.0-47.0); HEMOGLOBIN 15.1 g/dL (12.0-16.0); IMM GRAN# 0.15 X1000 (0.0-0.04); IMM GRAN% 0.6 % (0.0-0.5); LYMPH% 3.2 % (20.5-51.1); MCH 31.8 PG (27-31); MCHC 33.8 g/dL (33-37); MCV 94.1 FL (81-99); MONO% 9.2 % (1.7-9.3); MPV 12.1 FL (7.4-10.4); NEUT# 21.66 X1000 (1.4-6.5); NEUT% 86.7 % (42.2-75.2); PLT 226 X1000 (130-400); RBC 4.75 XMIL (4.2-5.4); RDW 13.6 % (11.5-14.5); WBC 24.99 X1000 (4.8-10.8)
--- NOTE | 2019-03-19 06:36 | Diag Imaging Result Doc PS360 ---
CHEST-1 VIEW - 03/19/2019 INDICATION: SOB COMPARISON: 03/18/2019 FINDINGS: Stable nasogastric tube in the stomach. Stable bilateral basilar infiltrates and small pleural effusions. Heart size remains top normal. There is improvement in the pulmonary vascular congestion. IMPRESSION: Improvement in the pulmonary vascular congestion. Electronically signed by Joe Chicas 03/19/2019 6:33 AM
[2019-03-19 06:42] LABS: AGAP 10; BUN 41 mg/dL (8-22); CALCIUM 9.3 mg/dL (8.8-10.2); CHLORIDE 92 mmol/L (98-107); COSMO 282; CREATININE 0.5 mg/dL (0.5-0.9); ESTIMATED GFR > 60; GLUCOSE 99 mg/dL (70-104); POTASSIUM 4.3 mmol/L (3.5-5.1); SODIUM 136 mmol/L (136-145); TCO2 34 mmol/L (25-35)
[2019-03-19] MEDS ORDERED: LASIX IV ONE (07:19)
[2019-03-19] MEDS: MAXIPIME 1 GM in NS 50 ML IV SCH ×2 (08:09→20:16)
[2019-03-19] MEDS: DULCOLAX PR SCH ×2 (08:09→20:16)
[2019-03-19] MEDS: DUONEB (A & A) INH SCH ×5 (08:23→23:42)
[2019-03-19] MEDS: BREO ELLIPTA 200/25 MCG INH INH SCH (08:23)
--- NOTE | 2019-03-19 08:48 | Diag Imaging Result Doc PS360 ---
EXAM: CHEST/ABD TUBE PLACEMENT 03/19/2019 HISTORY: NGT placement TECHNIQUE: Chest and abdomen for NG tube placement COMMENT: There is an NG tube with its tip in the stomach. There is an apparent air-fluid level over the right base. This may be artifactual as there is considerable grid cut off artifact. Further evaluation with inspiratory and expiratory upright chest radiographs is recommended. IMPRESSION: Questionable hydropneumothorax on the right. NG tube in the stomach. The findings were discussed with Jun Gaitan MD at 03/19/2019 8:45 AM. Electronically signed by Jluis Fields 03/19/2019 8:45 AM
[2019-03-19] MEDS: PRINIVIL PO SCH (08:53)
[2019-03-19] MEDS: TENORMIN PO SCH (08:53)
[2019-03-19] MEDS: PRILOSEC ORAL SUSPENSION PO SCH (08:53)
[2019-03-19] MEDS: MIRALAX PO SCH ×2 (08:53→20:16)
[2019-03-19] MEDS: SYNTHROID PO SCH (08:53)
[2019-03-19] MEDS: SEROQUEL NG SCH ×2 (08:53→20:17)
--- NOTE | 2019-03-19 09:23 | Diag Imaging Result Doc PS360 ---
CHEST-2 VIEWS - 03/19/2019 at 9:12 AM INDICATION: Evaluate for right hydropneumothorax COMPARISON: 8:25 AM FINDINGS: There is no pneumothorax or change from prior. IMPRESSION: No pneumothorax or change from prior. Electronically signed by Joe Chicas 03/19/2019 9:21 AM
--- NOTE | 2019-03-19 09:52 | PROGRESS NOTE ---
DATE: 03/19/2019 INTERVAL HISTORY: She diuresed well with intravenous Lasix. No other acute overnight events. Her Solu-Medrol was decreased, and she was given additional dose of Lasix as well as MiraLAX. She is more alert, and I discussed with the nurse about starting her on ice chips. SUBJECTIVE: She follows simple commands. She does not like the BiPAP mask, and she is in 2 point restraints. VITALS: Currently, temperature 97.6 degrees, pulse 80, respiratory 14, and blood pressure 130/80. She is saturating 100% on 50% Venturi mask. PHYSICAL EXAMINATION: She does not appear in any acute distress. She has a BiPAP mask currently. Her bilateral upper and lower extremity edema is decreased. No pallor, cyanosis, clubbing, or icterus. She has a nasogastric tube and De La Torre catheter. Decreased air entry bilateral inframammary region with inspiratory crackles. No wheeze or rhonchi. S1, S2 normal. No murmur, rub, or gallop. Abdomen is soft and nontender. Mild bilateral lower extremity edema. She is alert, she is following simple commands. She has trouble speaking considering she is on BiPAP, however she appears to be oriented. LABORATORY: Labs are suggestive of likely steroid induced leukocytosis with 0% eosinophil count. Hypercarbia which is compensated, and normal kidney function. Her proBNP is 11,000. MICROBIOLOGY: No new data. IMAGING: Chest x-ray performed for NG tube placement does have a questionable hydropneumothorax, and repeat chest x-ray has been ordered on the right. ASSESSMENT AND PLAN: 1. Acute hypoxic hypercapnic respiratory failure on chronic hypercapnic respiratory failure due to acute chronic obstructive pulmonary disease exacerbation, and right lower lobe Pseudomonas pneumonia, status post intubation between 03/11 and 03/16. Continue to cycle BiPAP and Venturi mask as tolerated; DuoNeb; intravenous cefepime day one is 03/13 for about 10 to 14 days; decrease intravenous methylprednisone, intravenous steroid dose, and give Lasix to match input and output. 2. Questionable right-sided hydropneumothorax. A repeat chest x-ray had been ordered. Based on that, my plan is to consult Surgery if needed. She has been on BiPAP, and has had prior history of chronic obstructive pulmonary disease and severe emphysema so a rupture of one of the emphysematous bulla leading to pneumothorax could not be totally ruled out. 3. Acute encephalopathy due to critical illness induced delirium. Continue Seroquel, as needed haloperidol, and as needed morphine. 4. Sinus tachycardia versus paroxysmal atrial fibrillation, now resolved, likely in the setting of current illness. Continuous atenolol and lisinopril for essential hypertension as well. 5. Others: Continue omeprazole for stress ulcer prophylaxis; enoxaparin for deep venous thrombosis prophylaxis; levothyroxine for hypothyroidism. Her septic shock and acute kidney injury have resolved. 6. Disposition: More than 30 minutes of critical care time was spent in taking care of this patient. I will continue nasogastric tube feedings and start patient on ice chips and sips of water. Advance diet as tolerated. If she is able to demonstrate consistent oral intake, the plan is to remove the nasogastric tube as well as De La Torre catheter tomorrow. Plan of care discussed with nursing team. All of the questions have been answered. cc: Jun Gaitan MD
[2019-03-19] MEDS: LOVENOX SUBQ SCH (20:16)
[2019-03-19] MEDS: XANAX PO PRN (22:33)
[2019-03-20] MEDS: DUONEB (A & A) INH PRN (03:30)
[2019-03-20 04:48] LABS: ALLEN TEST YES; BE 17.7 mmoll (-3.0-3.0); BLOOD TYPE ARTERIAL; HCO3-(ACT) 38.4 mmoll (20.0-26.0); METHB 1.3 % (0.0-1.5); O2(CT) 17.8 mL/dL (15.0-23.0); PO2(98.6) 50 mmHg (60-100); SAMPLE BLOOD; THB 14.6 g/dL (11.5-17.4); pH(98.6) 7.51 (7.35-7.45)
[2019-03-20 04:51] LABS: MODALITY CANNULA; PCO2(98.6) 55 mmHg (35-45)
[2019-03-20] MEDS ORDERED: PRINIVIL PO SCH (06:58)
[2019-03-20] MEDS ORDERED: TENORMIN PO SCH (06:58)
--- NOTE | 2019-03-20 07:09 | Diag Imaging Result Doc PS360 ---
EXAM: CHEST-1 VIEW 03/20/2019 HISTORY: SOB TECHNIQUE: AP portable at 0523 COMMENT: There are bilateral pleural effusions. There is bibasilar ill-defined opacity which may be due to pulmonary edema. There is apparent platelike atelectasis in the left base. These findings were also apparently present on 03/19/2019. IMPRESSION: Pleural effusions, pulmonary edema and left lower lobe atelectasis. Electronically signed by Jluis Fields 03/20/2019 7:06 AM
[2019-03-20] MEDS: BREO ELLIPTA 200/25 MCG INH INH SCH (07:47)
[2019-03-20] MEDS: DUONEB (A & A) INH SCH ×5 (07:47→23:20)
[2019-03-20] MEDS ORDERED: LASIX IV SCH (08:00)
[2019-03-20] MEDS: SEROQUEL NG SCH ×2 (08:05→20:45)
[2019-03-20] MEDS: SYNTHROID PO SCH (08:05)
[2019-03-20] MEDS: SOLU-MEDROL IV SCH (08:05)
[2019-03-20] MEDS: MIRALAX PO SCH ×2 (08:05→20:44)
[2019-03-20] MEDS: MAXIPIME 1 GM in NS 50 ML IV SCH ×2 (08:06→20:43)
[2019-03-20] MEDS: PRILOSEC ORAL SUSPENSION PO SCH (08:06)
[2019-03-20] MEDS ORDERED: LASIX IV ONE (08:15)
--- NOTE | 2019-03-20 08:24 | PROGRESS NOTE ---
DATE: 03/20/2019 INTERVAL HISTORY: Ms. Barker an episode of fever of about 100.2 overnight. She was -1.2 L yesterday. She also was found to be hypoxic on ABG. SUBJECTIVE: She is alert. She states she is feeling slightly better. She states she ate a little bit, though not a lot. She is still in bilateral wrist restraints. VITALS: Temperature 96 degrees, pulse 77, respiratory rate 14, blood pressure 120/64, she is saturating 92% on 50% BiPAP. PHYSICAL EXAMINATION: General: Cachectic. Not in any acute distress. She has a BiPAP mask, nasogastric tube, urine catheter, and bilateral upper extremity restraints. She has decreased air sounds in bilateral lung carey, especially in the infrascapular region with inspiratory crackles. Cardiovascular: S1 and S2 normal. No murmur, rub, or gallop. Abdomen: Soft, nontender. No lower extremity edema. She is alert. Follows simple commands like opening mouth, raising both upper extremities and lower extremities. Input and output -1.2 L. LABS: Suggestive of no WBC today. No BMP today. She does have what appears to be metabolic alkalosis. MICROBIOLOGY: Sputum is growing Pseudomonas aeruginosa. ASSESSMENT AND PLAN: 1. Acute hypoxic, hypercapnic respiratory failure on chronic hypercapnic respiratory failure due to acute chronic obstructive pulmonary disease exacerbation and right lower lobe Pseudomonas pneumonia, status post intubation between March 11 and March 16. Continue to cycle BiPAP and Venturi mask as tolerated to maintain saturations 88 to 92 percent; DuoNebs; intravenous cefepime day 1 on March 13 for about 10 to 14 days; intravenous methylprednisolone; and give Lasix to match input and output considering her pulmonary edema and pleural effusions. 2. Questionable right-sided hydropneumothorax. However, repeat chest x-ray did not show that. 3. Acute encephalopathy due to critical illness induced delirium with past history of anxiety. Continue Seroquel as needed, haloperidol as needed, morphine, and alprazolam. 4. Others. Her sinus tachycardia versus paroxysmal atrial fibrillation has resolved; hold atenolol and lisinopril if blood pressure is less than 120 systolic for essential hypertension; enoxaparin for deep venous thrombosis prophylaxis; omeprazole for stress ulcer prophylaxis; levothyroxine for hypothyroidism. Her septic shock, acute kidney injury have resolved. 5. Disposition. Patient appears to be hemodynamically stable and my plan is to transfer her to PVC unit today. Plan of care discussed with the nursing team. cc: Jun Gaitan MD MTDD
[2019-03-20] MEDS: DULCOLAX PR SCH ×2 (09:02→21:19)
[2019-03-20] MEDS: MUCOMYST 20% INH SCH (15:22)
[2019-03-20] MEDS ORDERED: CALMOSEPTINE OINTMENT TOP PRN (18:53)
[2019-03-20] MEDS: LOVENOX SUBQ SCH (20:45)
[2019-03-21] MEDS: DUONEB (A & A) INH SCH ×5 (07:19→23:21)
[2019-03-21] MEDS: MUCOMYST 20% INH SCH ×2 (07:20→19:35)
[2019-03-21 07:43] LABS: BE 19.1 mmoll (-3.0-3.0); BLOOD TYPE ARTERIAL; HCO3-(ACT) 39.5 mmoll (20.0-26.0); SAMPLE BLOOD; pH(98.6) 7.53 (7.35-7.45)
[2019-03-21 07:44] LABS: ALLEN TEST YES; METHB 0.8 % (0.0-1.5); O2(CT) 17.5 mL/dL (15.0-23.0); PCO2(98.6) 54 mmHg (35-45); PO2(98.6) 49 mmHg (60-100); SAO2 89.5 % (95.0-100.0); THB 14.4 g/dL (11.5-17.4)
[2019-03-21 07:45] LABS: MODALITY BI PAP; O2HB 86.9 % (95.0-99.0)
[2019-03-21] MEDS ORDERED: LASIX IV ONE (07:59)
--- NOTE | 2019-03-21 08:09 | Diag Imaging Result Doc PS360 ---
EXAM: CHEST-1 VIEW INDICATION: RESP DISTRESS TECHNIQUE: One view COMPARISON: 03/20/2019 FINDINGS: The NG tube has been removed. Bilateral pleural effusions with adjacent atelectasis and/or infiltrate at both lung bases is approximately stable. Mild basilar edema is essentially stable. No new consolidation is identified. Cardiac silhouette is stable. IMPRESSION: Interval removal of the NG tube. Stable chest, otherwise. Electronically signed by Mahendra Borges 03/21/2019 8:07 AM
[2019-03-21] MEDS ORDERED: LASIX ONE (08:11)
--- NOTE | 2019-03-21 08:15 | Diag Imaging Result Doc PS360 ---
EXAM: CHEST-1 VIEW INDICATION: SOB TECHNIQUE: One view COMPARISON: 03/20/2019 FINDINGS: There has been interval removal of NG tube. Bilateral pleural effusions with adjacent atelectasis and/or infiltrate is stable. No new consolidation is identified. Cardiac silhouette is stable. IMPRESSION: Interval removal of the NG tube. Stable chest, otherwise. Electronically signed by Mahendra Borges 03/21/2019 8:13 AM
[2019-03-21] MEDS: SOLU-MEDROL IV SCH (08:51)
[2019-03-21 09:06] LABS: AGAP 8; BUN 35 mg/dL (8-22); CALCIUM 9.2 mg/dL (8.8-10.2); CHLORIDE 94 mmol/L (98-107); COSMO 285; CREATININE 0.5 mg/dL (0.5-0.9); ESTIMATED GFR > 60; GLUCOSE 94 mg/dL (70-104); MAGNESIUM 1.8 mg/dL (1.5-2.7); POTASSIUM 3.7 mmol/L (3.5-5.1); SODIUM 139 mmol/L (136-145); TCO2 37 mmol/L (25-35)
[2019-03-21 09:17] LABS: BASO# 0.03 X1000 (0.0-0.2); BASO% 0.1 % (0.0-0.8); HEMATOCRIT 44.1 % (37.0-47.0); HEMOGLOBIN 14.5 g/dL (12.0-16.0); IMM GRAN# 0.14 X1000 (0.0-0.04); IMM GRAN% 0.4 % (0.0-0.5); LYMPH# 1.29 X1000 (1.2-3.4); MCH 31.7 PG (27-31); MCHC 32.9 g/dL (33-37); MCV 96.5 FL (81-99); MONO# 2.41 X1000 (0.11-0.59); MONO% 7.5 % (1.7-9.3); MPV 11.8 FL (7.4-10.4); NEUT# 28.14 X1000 (1.4-6.5); PLT 223 X1000 (130-400); RBC 4.57 XMIL (4.2-5.4); RDW 14.2 % (11.5-14.5); WBC 32.01 X1000 (4.8-10.8)
[2019-03-21 09:30] LABS: BANDS 2 % (0-1); LARGE PLATELETS 1+; MONO 2 % (1-9); SEGS 96 % (42-75)
[2019-03-21] MEDS: SYNTHROID PO SCH (10:04)
[2019-03-21] MEDS: MIRALAX PO SCH ×2 (10:05→21:15)
[2019-03-21] MEDS: MAXIPIME 1 GM in NS 50 ML IV SCH ×2 (10:07→21:14)
[2019-03-21] MEDS: PRILOSEC ORAL SUSPENSION PO SCH (10:15)
[2019-03-21] MEDS: DULCOLAX PR SCH ×2 (10:17→21:15)
--- NOTE | 2019-03-21 10:35 | PROGRESS NOTE ---
DATE: 03/21/2019 INTERVAL HISTORY: I was informed by the respiratory team that the patient's oxygen saturations were dropping and her BiPAP SpO2 was increased to 100%. I evaluated the patient at bedside. She is not in any distress. She is on BiPAP and has tripod composition. She is saturating 93% on 100% BiPAP and PO2 is 49, so I decided to send her over to ICU and I have given her a STAT ABG, STAT chest x-ray and STAT IV Lasix. OBJECTIVE: The patient is alert. Vitals are temperature 98.5 degrees, pulse of 85, respiratory 16, blood pressure 99/64, saturating 92% on 80% BiPAP. On physical examination, she has severe protein energy malnutrition, not in any acute distress. BiPAP mask, urine catheter. She has decreased air entry bilateral lung carey. S1, S2 normal. No murmur or gallop. Abdomen is soft, nontender. Extremity: Edema. She is alert. She is following all simple commands. Input and output was -1.2 L yesterday. LABS: Labs suggestive of worsening leukocytosis, hypoxia, hypochloremia and elevated carbon dioxide. Microbiology: No data. IMAGING: Chest x-ray performed today morning suggests interval removal of the NG tube, stable chest otherwise. ASSESSMENT AND PLAN: 1. Acute hypoxic hypercapnic respiratory failure on chronic hypercapnic respiratory failure due to acute chronic obstructive pulmonary disease exacerbation, right lower lobe Pseudomonas pneumonia status post intubation between March 11 and March 16. Continue to cycle BiPAP and Venturi mask to maintain saturation 88 to 92 percent; follow up CT scan to rule out pulmonary embolism; continue DuoNeb, intravenous cefepime for 10 to 14 days, day 1 being March 13; intravenous methylprednisolone and intravenous Lasix as tolerated. 2. Her acute encephalopathy due to critical illness induced delirium has resolved. I will continue alprazolam and as needed haloperidol for anxiety and agitation as well as intravenous morphine for pain. 3. Her sinus tachycardia versus paroxysmal atrial fibrillation has resolved; stop antihypertensive medication considering tenuous blood pressure; enoxaparin for deep venous thrombosis prophylaxis; omeprazole for stress ulcer prophylaxis; levothyroxine for hypothyroidism. Her septic shock acute kidney injury has resolved. TIME SPENT: More than 30 minutes of critical care time was spent in the care of this patient. I called the patient's son yesterday and informed him about patient's condition and answered all of his questions. cc: Jun Gaitan MD
[2019-03-21] MEDS: BREO ELLIPTA 200/25 MCG INH INH SCH (12:02)
--- NOTE | 2019-03-21 12:09 | Diag Imaging Result Doc PS360 ---
CT ANGIOGRM PULMONARY ARTERIES - 03/21/2019 INDICATION: Rule out PE TECHNIQUE: Axial CT images were obtained after administering intravenous contrast. Coronal MIP images were generated. COMPARISON: 03/12/2019 FINDINGS: There is no pulmonary embolism. No adenopathy. Heart size is top normal with no pericardial effusion. There are bilateral renal cysts stable from prior. Otherwise upper abdominal images appear unremarkable. There is advanced COPD. No infiltrates. There are small to moderate bibasilar pleural effusions. There is adjacent passive atelectasis. There are moderate degenerative changes of the spine. No acute or suspicious bony lesion. IMPRESSION: 1. Severe COPD. 2. Small to moderate bilateral pleural effusions. 3. Negative for pulmonary embolism. This exam was performed using automated exposure control, adjustment of mA or kV according to patient size, and/or use of iterative reconstruction technique Electronically signed by Joe Chicas 03/21/2019 12:07 PM
[2019-03-21] MEDS: LOVENOX SUBQ SCH (21:15)
[2019-03-21] MEDS: MORPHINE IV PRN (23:26)
[2019-03-22 04:34] LABS: ALLEN TEST YES; BE 18.6 mmoll (-3.0-3.0); BLOOD TYPE ARTERIAL; HCO3-(ACT) 39.4 mmoll (20.0-26.0); METHB 0.9 % (0.0-1.5); O2(CT) 18.7 mL/dL (15.0-23.0); O2HB 94.4 % (95.0-99.0); PO2(98.6) 71 mmHg (60-100); SAMPLE BLOOD; SAO2 97.2 % (95.0-100.0); THB 14.1 g/dL (11.5-17.4); pH(98.6) 7.53 (7.35-7.45)
[2019-03-22 04:36] LABS: MODALITY BI PAP; PCO2(98.6) 53 mmHg (35-45)
[2019-03-22] MEDS: SOLU-MEDROL IV SCH ×2 (06:09→09:02)
[2019-03-22] MEDS ORDERED: LASIX IV ONE (07:46)
[2019-03-22] MEDS: DUONEB (A & A) INH SCH ×5 (08:05→23:05)
[2019-03-22] MEDS: MUCOMYST 20% INH SCH ×2 (08:06→20:09)
--- NOTE | 2019-03-22 08:13 | PROGRESS NOTE ---
DATE: 03/22/2019 INTERVAL HISTORY: No acute events overnight. SUBJECTIVE: She is sitting in the bed. She has taken her Ventimask off, and she is saturating 87% to 88%. She does not appear in any acute distress. She states she is in the hospital because of her heart valve issues. She appears a little confused, though following simple commands. VITAL SIGNS: Temperature 98.4 degrees, pulse 70, respiratory rate 16, blood pressure 108/56. She is saturating 94% on 50% Ventimask. Input and output suggests negative 900 mL so far today. PHYSICAL EXAMINATION: General: Does not appear in any acute distress. Oral cavity: Dry. Lungs: Decreased air entry bilateral infrascapular region, and in general decreased breath sounds bilateral lung carey. Cardiovascular: S1, S2 normal. There is a systolic murmur affecting apex of the heart. No rub or gallop. Abdomen: Scaphoid, soft, nontender. Extremities: No lower extremity edema. : She has a urine catheter. LABS: No CBC today. BMP suggestive of metabolic alkalosis. X-RAYS: No chest x-ray today. ASSESSMENT AND PLAN: 1. Acute hypoxic hypercapnic respiratory failure on chronic hypercapnic respiratory failure due to acute chronic obstructive pulmonary disease exacerbation, right lower lobe Pseudomonas pneumonia, status post intubation on March 11 and March 16. She continues to have episodes of intermittent hypoxia requiring CIC to ICU transfer. I will continue to cycle BiPAP and Ventimask as tolerated with goal of saturations more than 90%. CT scan did not detect any pulmonary embolism. Continue DuoNeb, intravenous cefepime for 10 to 14 days, day 1 being March 13. Intravenous methylprednisolone and intravenous Lasix as needed. Follow up echocardiogram to rule out valvular pathology based on clinical exam, which could contribute to recurrent pulmonary vascular congestion and episodes of hypoxia. 2. Suspected valvular heart disease: Aortic stenosis vs mitral regurgitation. Follow up with ECHO. 2. Acute encephalopathy due to critical illness-induced delirium, currently stable. I will continue alprazolam as needed, haloperidol and intravenous morphine for pain. 3. Continue enoxaparin for deep venous thrombosis prophylaxis; omeprazole for stress ulcer prophylaxis; levothyroxine for hypothyroidism. Her sinus tachycardia versus atrial fibrillation, septic shock, acute kidney injury have resolved. 4. Disposition: I will continue to monitor patient in the critical care unit. Plan of care discussed with her. Her questions have been answered. cc: Jun Gaitan MD MTDD
[2019-03-22] MEDS: BREO ELLIPTA 200/25 MCG INH INH SCH (08:23)
[2019-03-22] MEDS: MAXIPIME 1 GM in NS 50 ML IV SCH ×2 (09:03→20:02)
[2019-03-22] MEDS: MIRALAX PO SCH ×2 (09:03→20:02)
[2019-03-22] MEDS: SYNTHROID PO SCH (09:03)
[2019-03-22] MEDS: PRILOSEC ORAL SUSPENSION PO SCH (09:03)
[2019-03-22] MEDS: DULCOLAX PR SCH ×2 (09:08→20:02)
[2019-03-22] MEDS ORDERED: NARCAN IV ONE (12:29)
--- NOTE | 2019-03-22 14:05 | ECHO REPORT ---
ORDER DATE: 03/21/2019 ECHOCARDIOGRAPHIC MEASUREMENTS: 1. Septal thickness 1.1. 2. Posterior wall thickness 1.1. 3. Left ventricular internal diameter in diastole 3.6. 4. Left ventricular internal diameter in systole 2.5. 5. Aortic root 2.7. 6. Left atrium 3.3. SUMMARY: 1. Technically difficult study due to limited acoustic window quality. 2. Fibrocalcific changes of aortic valve demonstrated with reduced aortic valve leaflet mobility demonstrated. Peak gradient across the aortic valve is 69 mmHg with a mean gradient of 40 mmHg. The calculated aortic valve area by Doppler is 0.7 cm2. Planimetry demonstrates an aortic valve area of 0.8 cm2. Severe aortic stenosis is suggested. There is trace aortic regurgitation. Mitral and tricuspid valves are without evidence of structural abnormality while pulmonic valve is not well demonstrated. There is trace tricuspid regurgitation and mild pulmonic insufficiency. The estimated systolic PA pressure by Doppler is 55 to 60 mmHg. Aortic root is normal in size. 3. Normal left ventricular chamber size with mild concentric left hypertrophy demonstrated. Estimated left ventricular ejection fraction appears to be at least 65%. No regional wall motion abnormalities are evident. Doppler suggests grade 1 left ventricular diastolic dysfunction. Left atrium is borderline enlarged on 2-dimensional images. The right atrium and right ventricle are normal in size with grossly preserved right ventricular systolic function. 4. No pericardial effusion. 5. Appearance of inferior vena cava suggests normal central venous pressure. CONCLUSIONS: 1. Severe aortic stenosis with trace aortic regurgitation. 2. Trace tricuspid regurgitation with moderate to severe pulmonary hypertension by Doppler. 3. Mild concentric left hypertrophy with estimated ejection fraction at least 65%. 4. Grade 1 left ventricular diastolic dysfunction. 5. Borderline left atrial enlargement. cc: MD Son Coley MD
[2019-03-22] MEDS: MORPHINE IV PRN (15:51)
[2019-03-22] MEDS: XANAX PO PRN (20:01)
[2019-03-22] MEDS: LOVENOX SUBQ SCH (20:02)
[2019-03-23 04:42] LABS: ALLEN TEST YES; BE 15.6 mmoll (-3.0-3.0); BLOOD TYPE ARTERIAL; HCO3-(ACT) 37.1 mmoll (20.0-26.0); O2(CT) 15.7 mL/dL (15.0-23.0); O2HB 96.3 % (95.0-99.0); PO2(98.6) 91 mmHg (60-100); SAMPLE BLOOD; THB 11.5 g/dL (11.5-17.4); pH(98.6) 7.49 (7.35-7.45)
[2019-03-23 04:43] LABS: MODALITY VENTIMASK; PCO2(98.6) 54 mmHg (35-45)
[2019-03-23] MEDS: SOLU-MEDROL IV SCH (05:10)
[2019-03-23 06:25] LABS: BASO# 0.01 X1000 (0.0-0.2); EOS# 0.01 X1000 (0.0-0.7); HEMATOCRIT 38.5 % (37.0-47.0); HEMOGLOBIN 12.6 g/dL (12.0-16.0); IMM GRAN# 0.08 X1000 (0.0-0.04); IMM GRAN% 0.4 % (0.0-0.5); LYMPH# 1.19 X1000 (1.2-3.4); LYMPH% 5.8 % (20.5-51.1); MCH 31.3 PG (27-31); MCHC 32.7 g/dL (33-37); MCV 95.8 FL (81-99); MONO# 1.72 X1000 (0.11-0.59); MONO% 8.4 % (1.7-9.3); MPV 12.4 FL (7.4-10.4); NEUT# 17.37 X1000 (1.4-6.5); NEUT% 85.4 % (42.2-75.2); PLT 203 X1000 (130-400); RBC 4.02 XMIL (4.2-5.4); RDW 13.9 % (11.5-14.5); WBC 20.38 X1000 (4.8-10.8)
[2019-03-23 07:31] LABS: LYMPHS 4 % (21-51); MONO 10 % (1-9); SEGS 86 % (42-75)
[2019-03-23 07:34] LABS: HYPOCHROM 1+
[2019-03-23 07:36] LABS: AGAP 13; BUN 27 mg/dL (8-22); CALCIUM 9.3 mg/dL (8.8-10.2); CHLORIDE 96 mmol/L (98-107); COSMO 285; CREATININE 0.4 mg/dL (0.5-0.9); ESTIMATED GFR > 60; GLUCOSE 77 mg/dL (70-104); MAGNESIUM 1.8 mg/dL (1.5-2.7); POTASSIUM 3.6 mmol/L (3.5-5.1); SODIUM 141 mmol/L (136-145); TCO2 32 mmol/L (25-35)
[2019-03-23] MEDS: DUONEB (A & A) INH SCH ×5 (07:43→23:36)
[2019-03-23] MEDS: MUCOMYST 20% INH SCH ×2 (07:43→19:21)
[2019-03-23] MEDS: BREO ELLIPTA 200/25 MCG INH INH SCH (07:51)
[2019-03-23 07:58] LABS: ALB/GLOB RATIO 1.3; ALBUMIN 2.9 g/dL (3.5-5.0); DIRECT BILIRUBIN 0.2 mg/dL (0.00-0.20); TOTAL BILIRUBIN 0.69 mg/dL (0.20-1.00); TOTAL PROTEIN 5.2 g/dL (6.3-8.3)
[2019-03-23] MEDS: MAXIPIME 1 GM in NS 50 ML IV SCH ×2 (08:25→20:40)
[2019-03-23] MEDS: SYNTHROID PO SCH (08:25)
[2019-03-23] MEDS: MIRALAX PO SCH ×2 (08:25→20:40)
[2019-03-23] MEDS: DULCOLAX PR SCH ×2 (08:25→20:39)
[2019-03-23] MEDS: PRILOSEC ORAL SUSPENSION PO SCH (08:25)
--- NOTE | 2019-03-23 09:14 | PROGRESS NOTE ---
DATE: 03/23/2019 INTERVAL HISTORY: She was not able to tolerate BiPAP yesterday well. With the BiPAP, her saturations had started dropping, so she was put back on Ventimask, which she tolerated well. SUBJECTIVE: The patient denies any new complaints. We discussed about valvular heart disease. We discussed about COPD. She states she is feeling better. She is not hungry though. We discussed about eating and trying to get stronger. OBJECTIVE: Current Vital Signs: Temperature 97.4 degrees, pulse 75, respiratory rate 22, blood pressure 130/50, she is saturating 92% on 50% Ventimask. General: She is sitting upright in the bed, not in any distress. Cachectic. Lungs: Air entry bilaterally equal. No wheeze or rhonchi. She has decreased air entry with inspiratory crackles, especially left infrascapular region. Heart: S1, S2 normal. Systolic murmur heard at the base of the heart. No rub or gallop. Abdomen: Scaphoid, soft, nontender. Extremities: No lower extremity edema. Genitourinary: She has a urine catheter. Neurologic: She is alert. She is oriented to herself, with the place, and partially with the situation. LABORATORY DATA: Labs are suggestive of leukocytosis. Normal hemoglobin. Normal platelet count. She does appear to have adequate oxygenation on 50% Ventimask. Normal kidney function. MICROBIOLOGY: No data. IMAGING: No new data. ASSESSMENT AND PLAN: 1. Acute hypoxic hypercapnic respiratory failure on chronic hypercapnic respiratory failure due to acute chronic obstructive pulmonary disease exacerbation, right lower lung Pseudomonas pneumonia, status post intubation between 03/11/2019 and 03/16/2019. Continue Ventimask to maintain saturation more than 90%, Gigi, intravenous cefepime, day 1 being 03/13/2019 (my plan is to continue it until 03/25/2019), prednisone for 3 more days, and Lasix as needed. 2. Severe aortic stenosis without left ventricular dysfunction. It is hard to delineate if the patient's routine symptoms of shortness of breath on exertion are due to chronic obstructive pulmonary disease or aortic stenosis. However, her shortness of breath gets worse intermittently on positive-pressure ventilation. I am wondering if that contributes to elevated left ventricular filling pressure. Consider Cardiology evaluation. 3. Acute encephalopathy due to critical illness-induced delirium, currently stable. Continue alprazolam, haloperidol, and intravenous morphine as needed. 4. Others. Continue enoxaparin for deep venous thrombosis prophylaxis, omeprazole for stress ulcer prophylaxis, levothyroxine for hypothyroidism. Her septic shock and acute kidney injury have resolved. I will continue to monitor the patient in the intensive care unit. Plan of care discussed with the patient and the nursing team. All of their questions have been answered. cc: Jun Gaitan MD
--- NOTE | 2019-03-23 13:19 | CONSULTATION ---
DATE OF CONSULTATION: 03/23/2019 HISTORY: This 73-year-old white female with past history of severe COPD with recurrent exacerbations, hypertension, [id number] aortic stenosis, and ongoing cigarette use, was admitted more than 10 days ago with progressive dyspnea over several days. She was felt to have exacerbation of COPD given hypoxemia and hypercapnia and radiographic findings. She has been treated aggressively, but has had further decline in respiratory status following initial improvement. An echocardiogram was repeated, which demonstrated severe aortic stenosis and normal left ventricular ejection fraction. Chest CT was negative for pulmonary embolus. Because of the severe aortic stenosis, Cardiology was consulted. She denies any chest discomfort. She reports presently feeling comfortable on supplemental oxygen. PAST MEDICAL HISTORY: 1. Severe chronic obstructive pulmonary disease. 2. Hypertension. 3. Aortic stenosis. 4. Hypothyroidism. PAST SURGICAL HISTORY: Includes hysterectomy. ALLERGIES: She is allergic or intolerant to Symbicort. MEDICATIONS PRIOR TO ADMISSION: As listed. SOCIAL HISTORY: She continues to smoke a pack of cigarettes a day up until her current admission. She does not use alcohol. FAMILY HISTORY: Negative for premature coronary disease. REVIEW OF SYSTEMS: Pulmonary: Noteworthy for recent dyspnea, as well as some cough. Gastrointestinal: Noncontributory. Constitutional: Noncontributory. Remainder of review of systems is negative/noncontributory with 14 total systems reviewed. PHYSICAL EXAMINATION: General: This is a chronically ill-appearing, older, white female in no acute distress, on supplemental oxygen per Venturi mask. Vital Signs: Blood pressure 125/57, heart rate 74. HEENT: Extraocular movements appear intact. Mucous membranes are moist. Neck: Supple without jugular venous distention. There are no carotid bruits. Chest: Auscultation of the chest reveals diminished breath sounds diffusely. Cardiac: Regular rate and rhythm. Heart sounds are somewhat distant. There is a soft systolic murmur at the right upper sternal border. No gallop could be appreciated. Abdomen: Soft. Bowel sounds are normal. Extremities: Without edema. LABORATORY AND DIAGNOSTIC DATA: Includes a white blood cell count of 20.38, hematocrit 38.5, hemoglobin 12.6, platelet count 203,000. Sodium 141, potassium 3.6, chloride 96, carbon dioxide 32, BUN 27, creatinine 0.4. Albumin 2.9. Recent troponin less than 0.01. Followup troponin less than 0.01. Most recent EKG dated 03/17/2019 is reviewed and demonstrates sinus tachycardia with occasional ventricular ectopy and nonspecific ST-T wave abnormality. IMPRESSION: 1. Severe aortic stenosis. 2. Respiratory failure. 3. Severe chronic obstructive pulmonary disease with exacerbation, as well as bilateral pleural effusions. 4. Hypertension. 5. Chronic ongoing cigarette use. RECOMMENDATIONS: 1. Limited diuresis may prove beneficial. 2. Ultimately, the patient may be considered for TAVR procedure. She is a high-risk candidate for open aortic valve replacement. cc: Jez Frankel MD
[2019-03-23] MEDS: MYCOSTATIN SUSP PO SCH ×3 (15:19→20:43)
[2019-03-23] MEDS: LOVENOX SUBQ SCH (20:40)
[2019-03-23] MEDS: XANAX PO PRN (20:40)
--- NOTE | 2019-03-24 08:30 | PROGRESS NOTE ---
DATE: 03/24/2019 HOSPITAL COURSE SUMMARY: Ms. Barker is a 73-year-old, lady who has been in the hospital since 03/10/2019 for severe chronic obstructive pulmonary disease exacerbation requiring intubation. She was extubated but since then, has had episodes of hypoxia requiring transfer back and forth between [facility] and ICU once. She was also detected to have severe aortic stenosis. INTERVAL HISTORY: No acute events overnight. Again, the patient was tried on BiPAP and her saturations had started dropping so she was put back on her nasal cannula and she was saturating 100%. I will discuss with pulmonology about keeping her off BiPAP since she is not wheezing anymore. SUBJECTIVE: She is feeling fine. She states she ate most of her meals yesterday. She was able to sit at the edge of the bed. She is denying any chest pain or shortness of breath. VITALS: Temperature of 98.8 degrees, pulse 63, respiratory rate 22, blood pressure 95/51. She is saturating 100% currently on 5 L nasal cannula, which I turned down to 3 L and informed the nurse. PHYSICAL EXAMINATION: General: Does not appear in any acute distress. Oral cavity has oral candidiasis. She has decreased air entry, bilateral infrascapular region with inspiratory crackles, especially on the left. S1, S2 normal. Systolic crescendo-decrescendo murmur, best heard at the apex of the heart. No rub or gallop. Abdomen is scaphoid, soft, nontender. No lower extremity edema. She has a urine catheter. She is alert. Oriented to herself, with place and mostly with situation. I placed a De La Torre catheter discontinuation order. LABS: No CBC or BMP so far today. No new microbiology. No new imaging. ASSESSMENT AND PLAN: 1. Acute hypoxic, hypercapnic respiratory failure on chronic hypercapnic respiratory failure due to acute chronic obstructive pulmonary disease exacerbation, right lower lung Pseudomonas pneumonia, status post intubation between March 11 and . Continue nasal cannula to keep saturation between 88 to 92 percent. I will stop antibiotics. She has received 11 days of intravenous cefepime. Continue DuoNebs, prednisone taper, and Lasix as needed. 2. Intermittent hypoxia on BiPAP with severe pulmonary hypertension and severe aortic stenosis. I will discuss with pulmonology team if we could keep her off BiPAP as she may not need it. Her left ventricular systolic function is normal, though she does have grade 1 diastolic dysfunction. Cardiology recommends she may be a candidate for transcatheter aortic valve replacement in future, though her severe chronic obstructive pulmonary disease poses a high risk for surgery candidate. 3. Acute encephalopathy due to critical illness induced delirium, currently stable. Continue home alprazolam as well as needed haloperidol and morphine. 4. Others. Continue enoxaparin for deep venous thrombosis prophylaxis, omeprazole for stress ulcer prophylaxis, levothyroxine for hypothyroidism, nystatin for oral candidiasis, physical therapy. Her septic shock and acute kidney injury on presentation have resolved. 5. Disposition. I will transfer patient to cardiac telemetry unit and also put social work rehab consult for future discharge plan. Plan of care discussed with her. All questions have been answered. cc: Jun Gaitan MD
[2019-03-24] MEDS: DUONEB (A & A) INH SCH ×5 (08:35→22:55)
[2019-03-24] MEDS: MUCOMYST 20% INH SCH ×2 (08:36→19:28)
[2019-03-24] MEDS: BREO ELLIPTA 200/25 MCG INH INH SCH (08:37)
[2019-03-24] MEDS: MIRALAX PO SCH ×2 (08:41→20:24)
[2019-03-24] MEDS: DULCOLAX PR SCH ×2 (08:41→20:25)
[2019-03-24] MEDS: MYCOSTATIN SUSP PO SCH ×4 (08:42→20:24)
[2019-03-24] MEDS: SYNTHROID PO SCH (08:42)
[2019-03-24] MEDS: PREDNISONE PO SCH (08:42)
[2019-03-24] MEDS: PRILOSEC ORAL SUSPENSION PO SCH (09:05)
--- NOTE | 2019-03-24 15:57 | PROGRESS NOTE ---
DATE: 03/24/2019 SUBJECTIVE: Patient is feeling better, but still with mild shortness of breath on supplemental oxygen per nasal cannula. There has been no chest pain. OBJECTIVE: Vital Signs: Blood pressure 131/51, heart rate 78, and oxygen saturation 91% to 97 percent. Neck: There is no significant jugular venous distention. Chest: Auscultation of the chest reveals diminished breath sounds diffusely. Cardiac: Exam reveals distant heart sounds. Regular rate and rhythm with a soft systolic murmur at the right upper sternal border. There is no evidence of peripheral edema. LABORATORY DATA: Includes a white blood cell count of 20.38, hematocrit 38.5, hemoglobin 12.6, and platelet count 203,000. Sodium 141, potassium 3.6, chloride 96, carbon dioxide 32, BUN 27, creatinine 0.4, and glucose 77. IMPRESSION: 1. Respiratory failure, hypercapnic. Suspect largely related to severe COPD. 2. Severe aortic stenosis. 3. Hypertension. 4. Chronic ongoing cigarette use. RECOMMENDATIONS: 1. Continue to treat for COPD as you are doing. 2. Smoking cessation strongly advised. 3. Ultimately, patient to be considered for TAVR procedure. cc: Jez Frankel MD
[2019-03-24] MEDS: LOVENOX SUBQ SCH (20:24)
[2019-03-25 04:22] LABS: ALLEN TEST YES; BLOOD TYPE ARTERIAL; HCO3-(ACT) 34.2 mmoll (20.0-26.0); METHB 1.5 % (0.0-1.5); O2(CT) 18.9 mL/dL (15.0-23.0); O2HB 95.2 % (95.0-99.0); PCO2(98.6) 42 mmHg (35-45); PO2(98.6) 78 mmHg (60-100); SAMPLE BLOOD; SAO2 98.3 % (95.0-100.0); SRATE 12 BPM; THB 14.1 g/dL (11.5-17.4); pH(98.6) 7.54 (7.35-7.45)
[2019-03-25 04:24] LABS: MODALITY BI PAP
[2019-03-25 07:11] LABS: BASO# 0.01 X1000 (0.0-0.2); BASO% 0.1 % (0.0-0.8); HEMATOCRIT 40.3 % (37.0-47.0); HEMOGLOBIN 13.5 g/dL (12.0-16.0); IMM GRAN# 0.06 X1000 (0.0-0.04); IMM GRAN% 0.3 % (0.0-0.5); LYMPH# 1.69 X1000 (1.2-3.4); LYMPH% 9.4 % (20.5-51.1); MCH 31.5 PG (27-31); MCHC 33.5 g/dL (33-37); MCV 93.9 FL (81-99); MONO% 8.4 % (1.7-9.3); MPV 11.6 FL (7.4-10.4); NEUT# 14.63 X1000 (1.4-6.5); NEUT% 81.8 % (42.2-75.2); PLT 309 X1000 (130-400); RBC 4.29 XMIL (4.2-5.4); RDW 13.5 % (11.5-14.5); WBC 17.89 X1000 (4.8-10.8)
[2019-03-25 07:48] LABS: AGAP 7; BUN 21 mg/dL (8-22); CALCIUM 9.1 mg/dL (8.8-10.2); CHLORIDE 95 mmol/L (98-107); COSMO 269; CREATININE 0.4 mg/dL (0.5-0.9); ESTIMATED GFR > 60; GLUCOSE 88 mg/dL (70-104); MAGNESIUM 1.8 mg/dL (1.5-2.7); POTASSIUM 3.7 mmol/L (3.5-5.1); SODIUM 133 mmol/L (136-145); TCO2 31 mmol/L (25-35)
[2019-03-25] MEDS: BREO ELLIPTA 200/25 MCG INH INH SCH (07:58)
[2019-03-25] MEDS: DUONEB (A & A) INH SCH ×5 (07:58→23:20)
[2019-03-25] MEDS: MUCOMYST 20% INH SCH ×2 (07:58→19:35)
[2019-03-25] MEDS: MYCOSTATIN SUSP PO SCH ×4 (08:16→20:06)
[2019-03-25] MEDS: SYNTHROID PO SCH (08:16)
[2019-03-25] MEDS: PREDNISONE PO SCH (08:16)
[2019-03-25] MEDS: DULCOLAX PR SCH ×2 (08:17→20:06)
[2019-03-25] MEDS: PRILOSEC ORAL SUSPENSION PO SCH (08:17)
[2019-03-25] MEDS: MIRALAX PO SCH ×2 (08:17→20:06)
--- NOTE | 2019-03-25 08:27 | PROGRESS NOTE ---
DATE: 03/24/2019 I called the patient's son at [phone]. I discussed with him about patient's clinical condition. I also discussed with him about severe aortic stenosis and need for future valve repair or replacement. I also discussed with him about need for quitting smoking and outpatient [facility] intervention Cardiology followup, answered all of his questions. cc: Jun Gaitan MD
--- NOTE | 2019-03-25 12:06 | PROGRESS NOTE ---
DATE: 03/25/2019 SUBJECTIVE: This morning, Ms. Barker refers to be doing fairly okay. According to her, her breathing is getting better. OBJECTIVELY: Vital Signs: Current blood pressure is 132/69, pulse of 69, respirations is 14, temperature is 98.4 degrees. General: Ms. Barker is a 73-year-old elderly female. She was sitting up at the edge of the bed. Does not seems to be in any remarkable distress. HEENT: Mucosa is pink and moist. Anicteric. Acyanotic. Neck: Supple. Chest: Air entry is bilaterally reduced, but there were no crepitations, no rhonchi. Cardiovascular: Regular rate and rhythm. Gastrointestinal: Abdomen is soft. Extremities: No pedal edema. Central nervous system: Patient is awake, alert, oriented. No focal neurological deficit. LABORATORY DATA: WBC is 17.89, hemoglobin is 13.5, platelet count of 309,000. Chemistry is also reviewed. Renal function is normal. IMAGING STUDIES: None for today. CURRENT MEDICATIONS: Have also been reviewed. She is no longer on any anti microbial therapy. ASSESSMENT: 1. Acute respiratory failure (hypoxemic and hypercarbic). Improved. 2. Right lower lobe Pseudomonas pneumonia. Patient has had treatment with cefepime for a total of 10 days. Antibiotics were discontinued yesterday. 3. Acute encephalopathy secondary to delirium associated with critical care illness. 4. Tobacco use and abuse. 5. Severe aortic stenosis. The patient has been evaluated by Cardiology. There is a plan for possible TAVR when patient is more clinically stable. 6. Congestive heart failure with preserved ejection fraction. Continue addressing the risk factors. 7. Disposition. We are still pending social work final arrangement for possible rehab placement. cc: Kike Waller MD
--- NOTE | 2019-03-25 18:12 | PROGRESS NOTE ---
DATE: 03/25/2019 SUBJECTIVE: Patient reports feeling better. She denies shortness of breath on room air presently. There has been no chest pain. OBJECTIVE: Vital Signs: Blood pressure 140/74, heart rate 79, oxygen saturation 96% on nasal cannula oxygen earlier. There is no significant jugular distention. Chest: Auscultation of the chest reveals diminished breath sounds diffusely. Cardiac: Reveals a regular rate and rhythm with a soft systolic murmur at the right upper sternal border. There is no evidence of peripheral edema. LABORATORY DATA: Includes a white blood cell count of 17.89, hematocrit 40.3, hemoglobin 13.5, platelet count 309,000. Sodium 133, potassium 3.7, chloride 95, carbon dioxide 31, BUN 21, creatinine 0.4, glucose 88. IMPRESSION: 1. Acute hypoxemic/hypercarbic respiratory failure, improving. 2. Right lower lobe pneumonia. 3. Severe chronic obstructive pulmonary disease. 4. Severe aortic stenosis. Patient ultimately may benefit from evaluation for possible transcatheter aortic valve replacement. RECOMMENDATIONS: 1. Continue to treat for pneumonia and chronic obstructive pulmonary disease exacerbation as you are doing. 2. Continue clinical observation for cardiovascular standpoint. Once she has improved clinically and likely as an outpatient, she had further cardiology followup and consideration for referral for possible transcatheter aortic valve replacement. cc: Jez Frankel MD MTDD
[2019-03-25] MEDS: LOVENOX SUBQ SCH (20:06)
--- NOTE | 2019-03-26 06:49 | Diag Imaging Result Doc PS360 ---
CHEST-PORTABLE - 03/26/2019 INDICATION: dyspnea COMPARISON: 03/21/2019 FINDINGS: There is a worsening, small pleural effusion at the right lung base. The left basilar pleural effusion has decreased. Stable COPD changes. No dense infiltrates. Heart size remains normal. IMPRESSION: Mixed changes, with overall no change from prior. Electronically signed by Joe Chicas 03/26/2019 6:47 AM
[2019-03-26 06:54] LABS: BASO# 0.01 X1000 (0.0-0.2); BASO% 0.1 % (0.0-0.8); EOS# 0.04 X1000 (0.0-0.7); EOS% 0.3 % (0.0-10.0); HEMATOCRIT 37.7 % (37.0-47.0); HEMOGLOBIN 12.6 g/dL (12.0-16.0); IMM GRAN# 0.04 X1000 (0.0-0.04); IMM GRAN% 0.3 % (0.0-0.5); LYMPH# 1.36 X1000 (1.2-3.4); LYMPH% 9.3 % (20.5-51.1); MCH 31.3 PG (27-31); MCHC 33.4 g/dL (33-37); MCV 93.8 FL (81-99); MONO# 1.15 X1000 (0.11-0.59); MONO% 7.9 % (1.7-9.3); MPV 11.3 FL (7.4-10.4); NEUT# 12.03 X1000 (1.4-6.5); NEUT% 82.1 % (42.2-75.2); PLT 270 X1000 (130-400); RBC 4.02 XMIL (4.2-5.4); RDW 13.3 % (11.5-14.5); WBC 14.63 X1000 (4.8-10.8)
[2019-03-26 07:06] LABS: AGAP 6; ALB/GLOB RATIO 1.3; ALBUMIN 2.9 g/dL (3.5-5.0); ALKALINE PHOSPHATASE 50 U/L (32-104); BUN 15 mg/dL (8-22); CALCIUM 8.9 mg/dL (8.8-10.2); CHLORIDE 98 mmol/L (98-107); COSMO 272; CREATININE 0.4 mg/dL (0.5-0.9); ESTIMATED GFR > 60; GLUCOSE 86 mg/dL (70-104); GOT 26 U/L (10-30); GPT 33 U/L (10-36); POTASSIUM 3.5 mmol/L (3.5-5.1); SODIUM 136 mmol/L (136-145); TCO2 32 mmol/L (25-35); TOTAL BILIRUBIN 0.72 mg/dL (0.20-1.00); TOTAL PROTEIN 5.1 g/dL (6.3-8.3)
[2019-03-26] MEDS: DUONEB (A & A) INH SCH ×5 (07:49→23:21)
[2019-03-26] MEDS: BREO ELLIPTA 200/25 MCG INH INH SCH (07:49)
[2019-03-26] MEDS: MUCOMYST 20% INH SCH (07:49)
[2019-03-26] MEDS: SYNTHROID PO SCH ×2 (07:50→08:07)
[2019-03-26] MEDS: MYCOSTATIN SUSP PO SCH ×5 (07:50→20:16)
[2019-03-26] MEDS: PREDNISONE PO SCH ×2 (07:51→08:07)
[2019-03-26] MEDS: PRILOSEC ORAL SUSPENSION PO SCH ×2 (07:51→08:07)
[2019-03-26] MEDS: DULCOLAX PR SCH ×2 (08:06→20:16)
[2019-03-26] MEDS: MIRALAX PO SCH ×2 (08:06→20:16)
--- NOTE | 2019-03-26 11:09 | PROGRESS NOTE ---
DATE: 03/26/2019 SUBJECTIVE: This morning Ms. Barker refers to be doing a lot better. According to her, her breathing is significantly improved. She was sitting up in the bed. OBJECTIVE: Vital Signs: Blood pressure is 122/71, pulse of 74, respiration is 15. Temperature 97.4 degrees. Patient is saturating 100% on 4 L. General: Ms. Barker is a 73-year-old elderly female. She was sitting up in the bed in no distress. HEENT: Mucosa is pink and moist. Anicteric. Acyanotic. Neck: Supple. Chest: Air entry was bilaterally reduced but no wheezing, no rhonchi. There was mild prolongation of the expiratory phase of respirations. Cardiovascular: Regular rate and rhythm. No murmurs, no rubs, no rubs, no gallops. PHYSICAL SCIENTIST: Patient is awake, alert, oriented. There is no focal neurological deficit. LABORATORY DATA: WBC is down to 14.63, hemoglobin is 12.6, platelet count 270,000. Chemistry is also reviewed which is completely normal. Pro B is down to 2198. IMAGING STUDIES: Mildly worsening small pleural effusion on the right but the left basilar pleural effusion has decreased. There is also stable COPD changes. CURRENT MEDICATIONS: Have all been reviewed. 1. She is currently on acetylcysteine nebs. 2. DuoNeb. 3. Xanax 0.125 b.i.d. 4. Colace p.r.n. 5. Breo Ellipta. 6. Haldol. 7. Levothyroxine 75 mcg p.o. daily. 8. Morphine p.r.n. 9. The patient is not on any more steroids. Antimicrobial therapy have all been finished. ASSESSMENT: 1. Acute respiratory failure on presentation ( both hypoxemic and hypercarbic) improved. 2. Right lower lobe right lower lobe pneumonia with sputum culture positive for Pseudomonas aeruginosa. Patient has completed antimicrobial therapy. Subsequent chest x-ray seems to show remarkable improvement. 3. Chronic obstructive pulmonary disease exacerbation resolved. 4. Acute encephalopathy during hospital course secondary to delirium resolved. 5. Tobacco use and abuse prior to hospital hospitalization. Patient has been counseled. 6. Severe aortic stenosis. The patient has been evaluated by cardiology and there is a plan for outpatient follow-up and possible TAVR at a later date. 7. Congestive heart failure with preserved ejection fraction. Patient is currently euvolemic. DISPOSITION: We are still pending rehab placement. The patient had physical therapy evaluation yesterday. She was able to do only 5 feet with a lot of difficulties. 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 cc: Kike Waller MD
[2019-03-26] MEDS: LOVENOX SUBQ SCH (20:16)
[2019-03-27] MEDS: DUONEB (A & A) INH SCH ×2 (07:39→11:26)
[2019-03-27] MEDS: BREO ELLIPTA 200/25 MCG INH INH SCH (07:46)
[2019-03-27] MEDS: DULCOLAX PR SCH (08:25)
[2019-03-27] MEDS: MIRALAX PO SCH (08:25)
[2019-03-27] MEDS: MYCOSTATIN SUSP PO SCH ×2 (08:26→14:00)
[2019-03-27] MEDS: PRILOSEC ORAL SUSPENSION PO SCH (08:26)
[2019-03-27] MEDS: SYNTHROID PO SCH (08:26)
[2019-03-27 11:47] VITALS: BP 115/47
--- NOTE | 2019-03-27 12:31 | DISCHARGE SUMMARY ---
ADMISSION DATE: 03/10/2019 DISCHARGE DATE: 03/27/2019 DISPOSITION: [facility]. FOLLOWUP: Dr. Frankel. CONSULTATIONS DURING THIS ADMISSION: 1. Pulmonary medicine was consulted. Patient was seen by Dr. Martinez. 2. Cardiology was consulted. Patient was seen by Dr. Frankel. INVASIVE PROCEDURES DONE DURING THIS ADMISSION: None. IMAGING STUDIES OF SIGNIFICANCE: Multiple imaging studies were done includin. A CT scan of the chest that showed tiny nodular infarcts. This was done on 03/12/2019. 2. Echocardiogram was done which showed an ejection fraction of 65% with mild concentric left ventricular hypertrophy. 3. Multiple x-rays were done, the last being yesterday that showed mixed changes but no worsening. ADMISSION DIAGNOSES: 1. Acute hypoxemic respiratory failure. 2. Chronic obstructive pulmonary disease exacerbation. 3. Active tobacco use. 4. Hypothyroidism. 5. Hypertension. DIAGNOSES AT THE TIME OF DISCHARGE: 1. Acute respiratory failure on presentation (both hypoxemic and hypercarbic). The patient was intubated at some point during the hospital course and was successfully extubated on 03/17/2019. 2. Right lower lobe pneumonia with culture positive for Pseudomonas aeruginosa. Patient completed 10 day therapy with antipseudomonal coverage. 3. Chronic obstructive pulmonary disease exacerbation, resolved. 4. Acute encephalopathy during hospital course secondary to delirium, improved. 5. Tobacco use and abuse prior to hospitalization. 6. Severe aortic stenosis. Patient has been evaluated by cardiology. There is a plan for outpatient followup and possible transcatheter aortic valve replacement evaluation at a later date. 7. Congestive heart failure with preserved ejection fraction. 8. Left ventricle mild concentric hypertrophy secondary to hypertensive heart disease. 9. Hypertension. 10. Hypothyroidism. DISCHARGE MEDICATIONS: 1. Atenolol 25 mg p.o. daily. 2. Levothyroxine 75 mcg p.o. daily. 3. Lisinopril 5 mg p.o. daily. 4. Gabapentin 100 mg p.o. daily. 5. Spiriva. 6. Alprazolam 0.125 b.i.d. 7. Dulcolax 10 mg b.i.d. PRESENTING COMPLAINT: Shortness of breath. HISTORY OF PRESENTING COMPLAINT: Ms. Barker is a 73-year-old, female who is known to have COPD, hypertension, hypothyroidism, aortic stenosis, who continues to be smoking tobacco. Ms. Barker started having some shortness of breath a couple days prior to her presentation which continued just to get worse. On presentation to the emergency room, she had an O2 saturation of about 70-76 on room air. That increased to about 90 on 5 L. She was subsequently admitted to the CICU for close monitoring and possible BiPAP use. HOSPITAL COURSE: Ms. Barker was admitted initially to the cardiac unit. Was started on standard treatment for COPD exacerbation. However, about 2 days into the hospital course, her clinical picture continued to worsen on the BiPAP, so she was eventually intubated on 03/11/2019. Pulmonary medicine as well as cardiology were all consulted. Ms. Barker remained under the ventilator until 03/17/2019, when she was successfully extubated and transitioned to BiPAP therapy. She did continuously get better. She developed critical illness polyneuropathy during the hospital course. Physical therapy was consulted and she started doing therapy, which she progressively got better. Today, Ms. Barker refers to be doing okay. She has completed 14 days of treatment with antimicrobial therapy. Her wheezing and respiratory symptoms have significantly improved. She is currently asymptomatic. We think she is okay for discharge. She is going to be going to a rehab to continue improving on her physical strength. We spent an extensive amount of time counseling Ms. Barker about tobacco cessation and the fact that it is driving all of her current pathologies. Ms. Barker was also found to have severe aortic stenosis. Cardiology was consulted and a plan has been made for a followup and possible TAVR evaluation when she is more medically stable. All the discharge instructions have been discussed with Ms. Barker and she voiced understanding. Time spent for discharge is 45 minutes. cc: MD Jez Augustine MD Lindsay E. Smith, MD Mamoun I. Najjar, MD
== END 2019-03-27 14:42 | DRG 870 ==
LOC: SUPCPDRO → ED 14:14 → SUATTDRO 19:45 → 3S 19:45 → EDIPHOLD 03-11 06:30 → ICU 03-11 08:40 → 2N 03-20 10:31 → ICU 03-21 08:40 → 2N 03-24 09:59
PROVIDERS: ATTEND Internal Medicine

== ENCOUNTER 2019-04-18 10:35 | Inpatient (IN) ==
[2019-04-18] MEDS ORDERED: DUONEB (A & A) INH ONE (11:02)
[2019-04-18] MEDS ORDERED: ROCEPHIN 1 GM in NS 50 ML IV ONE (11:02)
[2019-04-18] MEDS ORDERED: SOLU-MEDROL IV ONE (11:02)
[2019-04-18] MEDS ORDERED: ATROVENT NEB INH ONE (11:02)
--- NOTE | 2019-04-18 11:21 | Diag Imaging Result Doc PS360 ---
EXAM: CHEST-PORTABLE 04/18/2019 HISTORY: cough TECHNIQUE: AP portable at 1113 COMMENT: There are large bilateral pleural effusions. There is compressive atelectasis in both lower lobes which has worsened with the pleural effusions since the previous study of 03/26/2019. The possibility of underlying pneumonia cannot be excluded. IMPRESSION: Worsened bilateral pleural effusions and basilar atelectasis. Electronically signed by Jluis Fields 04/18/2019 11:19 AM
[2019-04-18 11:23] LABS: BASO# 0.05 X1000 (0.0-0.2); BASO% 0.5 % (0.0-0.8); EOS# 0.03 X1000 (0.0-0.7); EOS% 0.3 % (0.0-10.0); HEMATOCRIT 41.4 % (37.0-47.0); HEMOGLOBIN 13.1 g/dL (12.0-16.0); IMM GRAN# 0.04 X1000 (0.0-0.04); IMM GRAN% 0.4 % (0.0-0.5); LYMPH# 1.86 X1000 (1.2-3.4); MCH 31.1 PG (27-31); MCHC 31.6 g/dL (33-37); MCV 98.3 FL (81-99); MONO# 0.99 X1000 (0.11-0.59); MONO% 9.6 % (1.7-9.3); MPV 10.5 FL (7.4-10.4); NEUT# 7.36 X1000 (1.4-6.5); NEUT% 71.2 % (42.2-75.2); PLT 400 X1000 (130-400); RBC 4.21 XMIL (4.2-5.4); WBC 10.33 X1000 (4.8-10.8)
[2019-04-18 11:42] LABS: AGAP 12; ALB/GLOB RATIO 1.1; ALBUMIN 3.7 g/dL (3.5-5.0); ALKALINE PHOSPHATASE 98 U/L (32-104); BUN 11 mg/dL (8-22); CALCIUM 9.1 mg/dL (8.8-10.2); CHLORIDE 104 mmol/L (98-107); COSMO 288; CREATININE 0.7 mg/dL (0.5-0.9); ESTIMATED GFR > 60; GLUCOSE 125 mg/dL (70-104); GOT 25 U/L (10-30); GPT 18 U/L (10-36); POTASSIUM 4.1 mmol/L (3.5-5.1); SODIUM 144 mmol/L (136-145); TCO2 28 mmol/L (25-35); TOTAL BILIRUBIN 0.35 mg/dL (0.20-1.00); TOTAL PROTEIN 7.2 g/dL (6.3-8.3)
[2019-04-18 11:49] LABS: ALLEN TEST YES; BE 2.9 mmoll (-3.0-3.0); BLOOD TYPE ARTERIAL; O2(CT) 15.3 mL/dL (15.0-23.0); PCO2(98.6) 47 mmHg (35-45); PO2(98.6) 64 mmHg (60-100); SAMPLE BLOOD; SAO2 94.4 % (95.0-100.0); THB 11.9 g/dL (11.5-17.4); pH(98.6) 7.39 (7.35-7.45)
[2019-04-18 11:50] LABS: MODALITY CANNULA
[2019-04-18] MEDS ORDERED: LASIX IV ONE (12:17)
--- NOTE | 2019-04-18 13:07 | PROVIDER DOCUMENTATION ---
This chart was entered by Michelle Aleman Scribe, acting as scribe for Mamie Gramajo MD. HPI-Respiratory General - General Chief Complaint: Shortness of Breath Stated Complaint: SOB Time Seen by Provider: 04/18/19 10:43 Source: patient, EMS Allergies/Adverse Reactions: Patient Allergies Allergy/AdvReac Type Severity Reaction Status Date / Time budesonide [From Symbicort] Allergy HIVES Verified 04/18/19 10:53 formoterol fumarate * Allergy HIVES Verified 04/18/19 10:53 [From Symbicort] Home Medications: Home Medication List Medication Instructions Recorded Confirmed Last Taken Type Atenolol 25 mg PO DAILY 01/11/16 04/18/19 01/12/16 05:30 History LISINOpril [Prinivil] 5 mg PO DAILY 01/11/16 04/18/19 01/12/16 05:30 History Levothyroxine [Synthroid] 75 microgm PO DAILY 01/11/16 04/18/19 01/12/16 05:30 History Fluticasone/Vilanterol [Breo 1 inh INH ORDERED 03/10/19 04/18/19 Unknown History Ellipta 200-25 Mcg INH] Gabapentin 100 mg PO DAILY 03/10/19 04/18/19 Unknown History Mirtazapine 15 mg PO DAILY 03/10/19 04/18/19 Unknown History Tiotropium [place] Inhaler 1 inh INH ORDERED 03/10/19 04/18/19 Unknown History [Spiriva] Acetaminophen [Tylenol] 650 mg PO Q6H PRN PRN tab 03/27/19 04/18/19 Unknown Rx Alprazolam [Xanax] 0.125 mg PO BID PRN tab 03/27/19 04/18/19 Unknown Rx Bisacodyl [Dulcolax] 10 mg [place] BID supp 03/27/19 04/18/19 Unknown Rx - History of Present Illness-Resp Nature of Presenting Problem: 73 yowf presents to the eed with c/o sob and bilateral BLE edema since getting released from rehab recently. pt sts she was DC home with no O2 and the sob has worsened. pt is in moderate distress and ill appearing. pt was recently admitted to hospital ICU for respiratory arrest. Quality of Pain: reports: fullness Severity in ED: reports: moderate Onset/Duration: reports: last night Timing: reports: still present, constant, getting worse Context: reports: other (recent dc from rehab) Cough Quality/Degree: reports: mild, dry cough Episode Frequency: chronic episodes Current Respiratory Medication Therapy: Initiated see nurses note Modifying Factors: improves with: oxygen, sitting upright. worse with: exertion, lying down Associated Symptoms: reports: cough, shortness of breath, other (BLE edema). denies: dizziness, fever/chills, wheezing Similar Symptoms Previously?: Yes (COPD) Recently seen or treated by another doctor?: Yes Review of Systems - Adult - REVIEW OF SYSTEMS - ADULT Constitutional: denies: chills, fever Eyes: reports: no symptoms reported Ears, Nose, Mouth & Throat: reports: no symptoms reported Cardiovascular: reports: see HPI, edema (BLE). denies: chest pain, palpitations, syncope Respiratory: reports: see HPI, cough, dyspnea on exertion, shortness of breath. denies: wheezing Gastrointestinal: denies: abdominal pain, diarrhea, nausea, vomiting Genitourinary: reports: no symptoms reported Musculoskeletal: reports: no symptoms reported Integumentary: reports: see HPI, other (BLE edema) Neurological: denies: dizziness/vertigo, headache/migraines Psychiatric: reports: no symptoms reported Endocrine: reports: no symptoms reported Hematologic/Lymphatic: reports: no symptoms reported Allergic/Immunologic: reports: no symptoms reported All Other Systems: Reviewed and Negative Past History - Adult - PAST MEDICAL HISTORY-ADULT Review of Records: reports: Old Records Reviewed, Nursing Assessment Review, Medications Reviewed, Social history reviewed & non-contributory. Major Childhood Illnesses: reports: denies history Cardiovascular: reports: aortic disease, HTN Respiratory: reports: COPD, lung disease Gastrointestinal: reports: GERD Obstetrical/Gynecological: reports: denies history Genitourinary: reports: denies history Musculoskeletal: reports: denies history Hand Dominance: Right Handed Neurological: reports: denies history Psychiatric: reports: anxiety Endocrine/Immune: reports: thyroid disorder Other Conditions: reports: denies history - PRIOR SURGERIES/PROCEDURES Surgical/Procedure History: reports: reviewed, not pertinent - IMMUNIZATION STATUS Childhood Immunizations: See Nurse Assessment Flu Vaccine: See Nurse Assessment - FAMILY HISTORY Family History: reviewed, not pertinent - SOCIAL HISTORY Smoking: quit less than 1 year Substance Use: denies Alcohol Use Frequency: never Living Situation: family Physical Exam-General - PHYSICAL EXAM-ADULT Initial Vital Signs Reviewed: Yes - CONSTITUTIONAL General Appearance: alert, moderate distress, thin. negative: appears well (ill appearaing) - EYES Eyes: PERRL/EOMI - HEAD, EARS, NOSE, MOUTH & THROAT HENMT: moist mucous membranes - NECK Neck: non-tender, full range of motion, normal inspection - RESPIRATORY Respiratory: chest non-tender, respiratory distress, decreased breath sounds, increased rate (26), other (92% on 4LPM). negative: crackles, rales, rhonchi, wheezing - CARDIOVASCULAR Cardiovascular: normal peripheral pulses, regular rate, rhythm - CHEST (BREASTS) Chest/Breast: deferred - GASTROINTESTINAL (ABDOMEN) Abdominal Exam: normal bowel sounds, non tender, soft - GENITOURINARY Female Genitalia/Pelvic Exam: deferred Rectal Exam: deferred Hemoccult Exam: deferred - LYMPHATIC Lymphatic: no adenopathy - MUSCULOSKELETAL Back Exam: normal inspection Extremity: pelvis stable, swelling (BLE edema). negative: normal gait (due to swelling per pt and sob) - SKIN Integumentary: normal color, normal turgor, warm/dry - NEUROLOGIC Neurologic: grossly normal, no motor/sensory deficits - PSYCHIATRIC Psych/Mental Status: normal mood/affect, normal thought content, normal thought process, oriented x 3 Progress - PLAN OF CARE/RESULTS Progress/Plan/Lab Results: Vital Signs - 8 hr 04/18/19 10:44 04/18/19 10:45 04/18/19 10:50 Temperature 98.5 F Pulse Rate 77 74 72 Respiratory Rate 28 H 21 24 Blood Pressure 193/80 193/80 O2 Sat by Pulse Oximetry 91 L 91 L 88 L 04/18/19 11:00 04/18/19 11:15 04/18/19 11:30 Temperature Pulse Rate 70 72 68 Respiratory Rate 20 23 21 Blood Pressure O2 Sat by Pulse Oximetry 93 L 95 96 04/18/19 11:45 04/18/19 11:55 04/18/19 12:00 Temperature Pulse Rate 74 75 70 Respiratory Rate 15 18 16 Blood Pressure 104/76 O2 Sat by Pulse Oximetry 93 L 96 04/18/19 12:15 04/18/19 12:30 04/18/19 12:45 Temperature Pulse Rate 69 72 70 Respiratory Rate 17 22 28 H Blood Pressure O2 Sat by Pulse Oximetry 95 93 L 92 L 04/18/19 13:00 04/18/19 13:15 04/18/19 13:30 Temperature Pulse Rate 70 71 66 Respiratory Rate 17 24 22 Blood Pressure O2 Sat by Pulse Oximetry 91 L 92 L 93 L 04/18/19 13:45 04/18/19 14:00 04/18/19 14:15 Temperature Pulse Rate 68 71 69 Respiratory Rate 25 H 21 26 H Blood Pressure 103/77 O2 Sat by Pulse Oximetry 95 94 L 87 L 04/18/19 14:30 04/18/19 14:38 04/18/19 14:45 Temperature Pulse Rate 65 69 69 Respiratory Rate 20 27 H 30 H Blood Pressure 103/77 146/65 O2 Sat by Pulse Oximetry 94 L 92 L 93 L 04/18/19 15:00 04/18/19 15:02 04/18/19 15:15 Temperature Pulse Rate 73 69 71 Respiratory Rate 22 20 25 H Blood Pressure 182/63 O2 Sat by Pulse Oximetry 93 L 93 L 93 L Laboratory Results - last 24 hr 04/18/19 04/18/19 04/18/19 10:45 10:45 10:45 WBC 10.33 RBC 4.21 Hgb 13.1 Hct 41.4 MCV 98.3 MCH 31.1 H MCHC 31.6 L RDW Std Deviation 17.0 H Plt Count 400 MPV 10.5 H Immature Gran % (Auto) 0.4 Neut % (Auto) 71.2 Lymph % (Auto) 18.0 L [place] % (Auto) 9.6 H Eos % (Auto) 0.3 Baso % (Auto) 0.5 Immature Gran # (Auto) 0.04 Neut # (Auto) 7.36 H Lymph # (Auto) 1.86 [place] # (Auto) 0.99 H Eos # (Auto) 0.03 Baso # (Auto) 0.05 Specimen Type Sample Site pH pCO2 pO2 HCO3 Base Excess Oxyhemoglobin ABG O2 Sat (Calculated) ABG O2 Saturation ABG Carboxyhemoglobin ABG Methemoglobin [place] Test A-a O2 Difference Total Hemoglobin Lactate Blood Gas Modality FiO2 % Sodium 144 Potassium 4.1 Chloride 104 Carbon Dioxide 28 Anion Gap 12 BUN 11 Creatinine 0.7 Estimated GFR/1.73 m2 > 60 BUN/Creatinine Ratio 16 Glucose 125 H Calculated Osmolality 288 Calcium 9.1 Total Bilirubin 0.35 AST 25 ALT 18 Alkaline Phosphatase 98 Troponin T Bkn-S-Picpvbrbzga Pept 4846 H Total Protein 7.2 Albumin 3.7 Globulin 3.5 Albumin/Globulin Ratio 1.1 Plasma Lactate 04/18/19 04/18/19 04/18/19 10:45 11:14 11:45 WBC RBC Hgb Hct MCV MCH MCHC RDW Std Deviation Plt Count MPV Immature Gran % (Auto) Neut % (Auto) Lymph % (Auto) [place] % (Auto) Eos % (Auto) Baso % (Auto) Immature Gran # (Auto) Neut # (Auto) Lymph # (Auto) [place] # (Auto) Eos # (Auto) Baso # (Auto) Specimen Type ARTERIAL Sample Site L RADIAL pH 7.39 pCO2 47 H pO2 64 HCO3 27.0 H Base Excess 2.9 Oxyhemoglobin 91.0 L ABG O2 Sat (Calculated) 15.3 ABG O2 Saturation 94.4 L ABG Carboxyhemoglobin 2.60 H ABG Methemoglobin 1.0 [place] Test YES A-a O2 Difference 77.0 Total Hemoglobin 11.9 Lactate 1.40 Blood Gas Modality CANNULA FiO2 % 28.0 Sodium Potassium Chloride Carbon Dioxide Anion Gap BUN Creatinine Estimated GFR/1.73 m2 BUN/Creatinine Ratio Glucose Calculated Osmolality Calcium Total Bilirubin AST ALT Alkaline Phosphatase Troponin T 0.029 Nxf-W-Dvdriuycayn Pept Total Protein Albumin Globulin Albumin/Globulin Ratio Plasma Lactate 2.1 Orders Category Date Time Status Admit - [facility] Routine AdmDCTranf 04/18/19 14:59 Active Activity - Up with Assistance ORDERED Care 04/18/19 14:59 Active Apply Mechanical Device [QM] ORDERED Care 04/18/19 15:24 Active Intake and Output-Strict ORDERED Care 04/18/19 15:24 Active Nursing- Assist w/ IS as order ORDERED Care 04/18/19 15:24 Active Nursing- MD Consult Request ROUTINE Care 04/18/19 15:05 Active Nursing- MD Consult Request ROUTINE Care 04/18/19 15:05 Active Saline Loc DIRECTED Care 04/18/19 15:24 Active Saline Loc NOW Care 04/18/19 11:03 Active Turn, Cough and Deep Breathe Q4HR.AWAKE Care 04/18/19 15:24 Active Vital Signs Order Q 4-HR ASSESS Care 04/18/19 15:24 Active Z-Document. for Tele Applied ORDERED Care 04/18/19 15:24 Completed MD [Physician/Provider Consults] Routine Cons 04/18/19 15:04 Ordered MD [Physician/Provider Consults] Routine Cons 04/18/19 15:05 Ordered Heart Healthy Diet Diet 04/18/19 14:23 Active CHEST-2 VIEWS [RAD] Routine Exams 04/19/19 06:00 Ordered CHEST-PORTABLE [RAD] Stat Exams 04/18/19 11:03 Completed ABG [RESP] Routine Lab 04/18/19 11:45 Completed BLOOD CULTURE [BLDCUL] Stat Lab 04/18/19 11:19 Results BNP [PRO B-NATRIURETIC PEPTIDE] Stat Lab 04/18/19 10:45 Completed CBC WITH DIFF [HEME] Routine Lab 04/19/19 06:00 Ordered CBC WITH DIFF [HEME] Stat Lab 04/18/19 10:45 Completed COMPREHENSIVE METABOLIC PANEL [CHEM] Routine Lab 04/19/19 06:00 Ordered COMPREHENSIVE METABOLIC PANEL [CHEM] Stat Lab 04/18/19 10:45 Completed FOLATE Routine Lab 04/19/19 06:00 Ordered FREE T4 Routine Lab 04/19/19 06:00 Ordered LACTATE, PLASMA [CHEM] Stat Lab 04/18/19 11:14 Completed SPUTUM CULTURE WITH GRAM STAIN [RM] Routine Lab 04/18/19 14:59 Uncollected TROPONIN T Stat Lab 04/18/19 10:45 Completed TSH Routine Lab 04/19/19 06:00 Ordered VITAMIN B12 Routine Lab 04/19/19 06:00 Ordered Acetaminophen [Tylenol] Med 04/18/19 14:59 Active 650 mg PO Q6H PRN PRN Albuterol 2.5MG/Ipratrop 0.5MG [Duoneb (A & A)] Med 04/18/19 11:02 Discontinued 3 ml INH NOW ONE Albuterol 2.5MG/Ipratrop 0.5MG [Duoneb (A & A)] Med 04/18/19 14:59 Active 3 ml INH Q2H PRN PRN Albuterol 2.5MG/Ipratrop 0.5MG [Duoneb (A & A)] Med 04/18/19 15:30 Active 3 ml INH RTQ4H Alprazolam [Xanax] Med 04/18/19 15:00 Active 0.125 mg PO BID PRN PRN Atenolol [Tenormin] Med 04/19/19 09:00 Active 25 mg PO DAILY Bisacodyl [Dulcolax] Med 04/18/19 21:00 Active 10 mg [place] BID CefTRIAXONE [Rocephin] 1 gm Med 04/18/19 11:02 Discontinued 0.9% Sodium Chloride Inj [Ns] 50 ml IV NOW CefTRIAXONE [Rocephin] 1 gm Med 04/19/19 09:00 Active 0.9% Sodium Chloride Inj [Ns] 50 ml IV Q24H Furosemide [Lasix] Med 04/18/19 12:17 Discontinued 80 mg IV NOW ONE Gabapentin [Neurontin] Med 04/19/19 09:00 Active 100 mg PO DAILY Ipratropium [place] Neb [Atrovent Neb] Med 04/18/19 11:02 Discontinued 0.5 mg INH NOW ONE LISINOpril [Prinivil] Med 04/19/19 09:00 Active 5 mg PO DAILY Levothyroxine [Synthroid] Med 04/19/19 09:00 Active 75 microgm PO DAILY Methylprednisolone Sod Succ [Solu-Medrol] Med 04/18/19 11:02 Discontinued 125 mg IV NOW ONE Methylprednisolone Sod Succ [Solu-Medrol] Med 04/18/19 20:00 Active 60 mg IV Q8H Ondansetron [Zofran] Med 04/18/19 14:59 Active 4 mg IV Q4H PRN PRN Tiotropium [place] Inhaler [Spiriva] Med 04/19/19 07:30 Active 1 puff INH RTDAILY Aerosol Treatments Routine Ot 04/18/19 11:04 Completed Aerosol Treatments Routine [facility] 04/18/19 14:59 Completed Aerosol Treatments Stat [facility] 04/18/19 11:04 Completed Incentive Spirometer Q4HR.AWAKE [facility] 04/18/19 17:00 Completed Incentive Spirometer Q4HR.AWAKE Ot 04/18/19 21:00 Completed Incentive Spirometer Q4HR.AWAKE [facility] 04/19/19 01:00 Completed Incentive Spirometer Q4HR.AWAKE [facility] 04/19/19 05:00 Completed Incentive Spirometer Q4HR.AWAKE Ot 04/19/19 09:00 Completed Incentive Spirometer Q4HR.AWAKE Ot 04/19/19 13:00 Completed MDI Treatments Stat [facility] 04/18/19 15:00 Completed Oxygen Device Routine [facility] 04/18/19 15:24 Completed Peak Flow BID Ot 04/18/19 21:00 Completed Peak Flow BID [facility] 04/19/19 09:00 Completed Pulse Oximetry Routine [facility] 04/18/19 15:24 Completed Pulse Oximetry Stat [facility] 04/18/19 11:03 Completed Telemetry [OM.EQ] Routine Ot 04/18/19 15:24 Active EKG [EKG] Stat Ther 04/18/19 13:04 Ordered Transfer/Admit Order [TRANSFER] Routine Transfer 04/18/19 14:55 Completed Result Diagrams: 04/18/19 10:45 04/18/19 10:45 - XRAY 1 XRAY: Bilateral XRAY Study: Chest Impression: See EMR Report (EXAM: CHEST-PORTABLE 04/18/2019 HISTORY: cough TECHNIQUE: AP portable at 1113 COMMENT: There are large bilateral pleural effusions. There is compressive atelectasis in both lower lobes which has worsened with the pleural effusions since the previous study of 03/26/2019. The possibility of underlying pneumonia cannot be excluded. IMPRESSION: Worsened bilateral pleural effusions and basilar atelectasis. Electronically signed by Jluis Fields 04/18/2019 11:19 AM 04/18/191118 Interpreting Physician: Jluis Fields MD Dictated Date/Time: 04/18/191117 cc: Mamie Gramajo MD; Kirsten Noel MD) - CONSULTS/PCP/HOSPITALIST Notification #1 *Consult/PCP/Hospitalist*: Becca Time Discussed: 13:06 Consult Disposition: Admit Departure - Departure Date of Disposition Decision: 04/18/19 Time of Disposition Decision: 13:06 DIAGNOSIS: Hypoxia, Acute exacerbation of chronic obstructive pulmonary disease, Congestive heart failure Disposition: ADMITTED INPATIENT 09 Certified Medical Emergency: Emergent Condition: Serious - Critical Care Note This patient required my direct & personal management of CC.: Yes Total Time (mins): 37 Critical Care Statement: This patient required my direct personal management to treat or rule out processes, the absence of which, could potentiallly result in sudden, clinically significant life or limb threatening deterioration. Attestation - Physician/ LUISITO Attestation Patient care was provided by Advanced Practice Provider:: No The physician spent face to face time with patient:: Yes Advanced Practice Provider documentation review:: Supervising physician onsite and consulted in the evaluation and care of this patient. The physician did have a face to face encounter with the patient. This chart was documented by the indicated scribe, (Michelle Aleman Scribe) and accurately reflects the services I performed and decisions made by me, Mamie Gramajo MD, as attested by the provider's signature.
[2019-04-18] MEDS ORDERED: TYLENOL PO PRN (14:59)
[2019-04-18] MEDS ORDERED: ZOFRAN IV PRN (14:59)
[2019-04-18] MEDS ORDERED: DUONEB (A & A) INH PRN (14:59)
[2019-04-18] MEDS ORDERED: XANAX PO PRN (15:00)
[2019-04-18] MEDS: DUONEB (A & A) INH SCH ×3 (15:30→23:06)
--- NOTE | 2019-04-18 15:42 | HISTORY AND PHYSICAL ---
HISTORY OF PRESENT ILLNESS: Ms. Barker stated that she just got out of rehab. She had been admitted a couple times in the last couple months for COPD exacerbation, and she went home from rehab. She says she has really not had any oxygen; she uses her 's at times. She can tell she is getting more short of breath and she is getting weaker. She denies fever or chills or pleuritic pain or cough, but just feels like she is getting more short of breath and feels like she is getting weak and has dyspnea with exertion and some dyspnea with rest. She feels a little better now that they put some oxygen on her. PAST MEDICAL HISTORY: 1. COPD approaching end-stage. 2. Hypertension. 3. Hypothyroidism. 4. Aortic stenosis. PAST SURGICAL HISTORY: She has had hysterectomy. SOCIAL HISTORY: She smokes about a pack a day. Denies alcohol or illicit drugs. ALLERGIES: Symbicort which causes her to have hives. REVIEW OF SYSTEMS: Constitutional: She did not report any fever, chills, weight loss or gain. HEENT: No change in vision or hearing acuity reported. No adenopathy. No upper respiratory drainage or congestion. Respiratory: As above. Increased dyspnea at rest and at exertion, and she has noted some increased swelling in her leg. She said, "My legs have never swollen before." Cardiovascular: No chest pain or tachy palpitation. Gastrointestinal and Genitourinary: No gross hematuria or dysuria. Musculoskeletal/Neurologic: No significant complaints. Endocrinologic/Hematologic: No significant history. EXAM: General: She is awake and alert. She was eating her lunch. Vital Signs: Temperature 98.5 degrees, pulse 69, respirations 27, blood pressure 103/77. HEENT: Pupils are equal. Oral and nasal mucosa without any lesions. Conjunctiva pink. Lungs: Clear with decreased breath sounds both bases, but no wheezing. There is prolonged expiratory phase 1.5 to 1. In inspiratory phase, she does have distended neck veins. Her carotid, radial and femoral pulses are 2+ and symmetrical. Abdomen: Soft, nondistended. Cardiovascular exam: Regular rhythm and rate without murmur or S3. PMI displaced downwardly. She has trace to 1+ pitting edema confined to the ankles. Skin: Without rashes. Neck: Supple. No cervical or supraclavicular adenopathy appreciated. LABORATORY DATA: White count 10,330, hematocrit 41, platelet count 400,000. Sodium 144, potassium 4.1, chloride 104. BUN 11, creatinine 0.7. Blood sugar 125. AST is 25, ALT is 18, albumin 3.7. Blood gases: The pH is 7.39, pCO2 47, PO2 is 64, O2 saturation is 94%. IMAGING STUDIES: Chest x-ray: Worsened bilateral pleural effusions and basilar atelectasis. ASSESSMENT AND PLAN: 1. Chronic obstructive pulmonary disease. It looks like she has cor pulmonale with right heart strain, and I think she will need oxygen at home. So, a little bit of decompensation of the right heart. We will put her back on supplemental oxygen and continue bronchodilators. I do not see any sign of active infection and she does not seem to have significant bronchospasm. We will see if we can arrange for her to have home oxygen at home, and I think given her cor pulmonale she should be eligible. We did an echocardiogram back on 03/21/2019. She has severe aortic stenosis and trace aortic regurgitation. She has trace tricuspid regurgitation, moderate to severe pulmonary hypertension. Her pulmonary pressures were 55 to 60 mmHg. She has mild left ventricular hypertrophy and ejection fraction 65%. So, she has a grade 1 diastolic dysfunction as well. 2. Aortic stenosis, which looks like it is severe. I will look back and see if that has been evaluated before. 3. Diastolic dysfunction, congestive heart failure with normal ejection fraction and left ventricular hypertrophy. 4. History of hypothyroidism. Continue her Synthroid. 5. History of hypertension. Will watch her blood pressures. cc: Colby Parsons MD
[2019-04-18] MEDS: SOLU-MEDROL IV SCH (23:10)
[2019-04-18] MEDS: DULCOLAX PR SCH (23:11)
[2019-04-19] MEDS: DUONEB (A & A) INH SCH ×6 (04:27→23:16)
[2019-04-19] MEDS: SOLU-MEDROL IV SCH ×3 (06:13→21:48)
[2019-04-19 07:33] LABS: URINE SOURCE CLEAN CATCH
[2019-04-19 07:40] LABS: BILIRUBIN URINE NEGATIVE (NEGATIVE); BLOOD URINE NEGATIVE (NEGATIVE); COLOR YELLOW; GLUCOSE URINE NEGATIVE (NEGATIVE); KETONE URINE NEGATIVE (NEGATIVE); LEUKOCYTES URINE NEGATIVE (NEGATIVE); NITRITE URINE NEGATIVE (NEGATIVE); PROTEIN URINE TRACE mg/dL (NEGATIVE); SP GRAVITY URINE 1.018; TURBIDITY URINE CLEAR (CLEAR); UROBILINOGEN URINE NORMAL (NORMAL)
[2019-04-19 07:42] LABS: UR EPITHELIAL CELLS <10 /HPF (<10); URINE BACTERIA NEGATIVE /HPF; URINE RBC <10 /HPF (<10); URINE WBC <10 /HPF (<10)
[2019-04-19 07:59] LABS: AGAP 15; ALB/GLOB RATIO 1.1; ALBUMIN 3.4 g/dL (3.5-5.0); ALKALINE PHOSPHATASE 82 U/L (32-104); BUN 15 mg/dL (8-22); CHLORIDE 99 mmol/L (98-107); COSMO 285; CREATININE 0.7 mg/dL (0.5-0.9); ESTIMATED GFR > 60; GLUCOSE 152 mg/dL (70-104); GOT 15 U/L (10-30); GPT 14 U/L (10-36); POTASSIUM 3.9 mmol/L (3.5-5.1); SODIUM 141 mmol/L (136-145); TCO2 27 mmol/L (25-35); TOTAL BILIRUBIN 0.26 mg/dL (0.20-1.00); TOTAL PROTEIN 6.5 g/dL (6.3-8.3)
[2019-04-19 08:08] LABS: HEMATOCRIT 36.6 % (37.0-47.0); HEMOGLOBIN 11.6 g/dL (12.0-16.0); IMM GRAN# 0.04 X1000 (0.0-0.04); IMM GRAN% 0.3 % (0.0-0.5); LYMPH# 0.97 X1000 (1.2-3.4); LYMPH% 7.4 % (20.5-51.1); MCH 31.2 PG (27-31); MCHC 31.7 g/dL (33-37); MCV 98.4 FL (81-99); MONO# 0.24 X1000 (0.11-0.59); MONO% 1.8 % (1.7-9.3); MPV 10.3 FL (7.4-10.4); NEUT# 11.87 X1000 (1.4-6.5); NEUT% 90.5 % (42.2-75.2); PLT 405 X1000 (130-400); RBC 3.72 XMIL (4.2-5.4); RDW 16.5 % (11.5-14.5); WBC 13.12 X1000 (4.8-10.8)
[2019-04-19] MEDS: SPIRIVA INH SCH (08:12)
[2019-04-19 08:15] LABS: FREE T4 1.03 ng/dL (0.93-1.70); TSH 1.66 uIUmL (0.27-4.20)
[2019-04-19 08:59] LABS: BANDS 4 % (0-1); HYPOCHROM 1+; LYMPHS 4 % (21-51); SEGS 92 % (42-75)
[2019-04-19] MEDS ORDERED: ROCEPHIN 1 GM in NS 50 ML IV SCH (09:00)
[2019-04-19] MEDS: NEURONTIN PO SCH (09:15)
[2019-04-19] MEDS: PRINIVIL PO SCH (09:15)
[2019-04-19] MEDS: SYNTHROID PO SCH (09:15)
[2019-04-19] MEDS: TENORMIN PO SCH (09:15)
[2019-04-19] MEDS: DULCOLAX PR SCH ×2 (09:16→21:48)
--- NOTE | 2019-04-19 09:41 | Diag Imaging Result Doc PS360 ---
EXAM: CHEST-2 VIEWS INDICATION: short of breath TECHNIQUE: 2 views COMPARISON: 04/18/2019 FINDINGS: There are stable bilateral pleural effusions with adjacent bibasilar atelectasis. No new consolidation is identified. Cardiac silhouette is stable. IMPRESSION: Stable chest. Electronically signed by Mahendra Borges 04/19/2019 9:38 AM
--- NOTE | 2019-04-19 10:03 | PROGRESS NOTE ---
DATE: 04/19/2019 She is breathing better. Had a pretty good uneventful night. OBJECTIVE: Remains afebrile, temperature 97.9 degrees, pulse 74, respirations 15, blood pressure 119/44.HEENT: Pupils are equal and round. Lungs: Clear in all lung carey. Cardiovascular: Regular rhythm and rate without murmur or S3. Abdomen: Soft. Skin: Warm and dry. Chest x-ray stable chest. Bilateral pleural effusions, adjacent bibasilar atelectasis. No new consolidation identified. ASSESSMENT AND PLAN: 1. COPD. Looks like she has pulmonary hypertension and severe aortic stenosis with diastolic dysfunction and I do think she would benefit from oxygen at home but I think that probably once again we need to address whether we need to pursue a transaortic transvascular aortic valve replacement or whether she would even be a candidate. Ask cardiology to evaluate. 2. Severe aortic stenosis. 3. Diastolic dysfunction with a normal ejection fraction and left ventricular hypertrophy. 4. Hypothyroidism. 5. Hypertension. REVIEW OF ORDERS: I do not see any change at this point, I will cut down the prednisone. She does not seem to have much bronchospasm now. We are treating empirically with some ceftriaxone, although I do not really see any evidence of infection. cc: Colby Parsons MD
--- NOTE | 2019-04-19 15:40 | CARDIOLOGY CONSULTATION ---
DATE: 04/19/2019 REASON FOR CONSULTATION: Cardiology was consulted for severe aortic stenosis, severe COPD, and emphysema. HISTORY OF PRESENT ILLNESS: The patient was recently admitted on 03/10/2019 and subsequently discharged on 03/27/2019. She was admitted with acute hypoxic respiratory failure with COPD exacerbation, has had right lower lobe pneumonia culture positive for pseudomonas. She also has a history of hypertension and severe aortic stenosis. The patient was discharged home. She comes in with complaints of having just got out of rehab and has had increasing shortness of breath and felt weaker. She was orthopneic when she came to the Emergency Room. She denies any fevers or chills or any pleuritic type of chest pain. She has had episodes of chest discomfort more related to indigestion related to food and mainly at nighttime; this was as she puts it. As far as the shortness of breath is concerned this has progressively worsened recently. However, she had an extensive hospitalization with respiratory failure and pneumonia during the month of March. REVIEW OF SYSTEM: A 14-point review of systems was done. GI System: As above. In addition, there is no history of hematemesis or melena. Central Nervous System: No focal weakness to suggest CVA or TIA. System: There is no dysuria or hematuria. Respiratory System: There is no recent cough, expectoration, or hemoptysis. There is no history of fever or chills. PAST MEDICAL HISTORY: 1. Recent hospitalization on 03/10/2019 and discharged on 03/27/2019 with acute hypoxemic respiratory failure, severe COPD requiring intubation, and she also had right lower lobe pneumonia secondary to pseudomonas. 2. Severe obstructive pulmonary disease. 3. Hypertension. 4. Hypothyroidism. 5. Severe aortic stenosis. Echocardiogram on 03/21/2019 revealed aortic valve area calculated at 0.7 cm2 with a mean gradient of 40 mmHg and peak gradient of 69 mmHg, pulmonary artery systolic pressure of 55 to 60 mmHg, and left ventricular ejection fraction of 65%. 6. History of hysterectomy. MEDICATIONS: Include: Atenolol 25 mg, levothyroxine 75 mg, lisinopril 5 mg, Breo Ellipta inhaler, gabapentin 100 mg a day, and mirtazapine 15 mg a day. ALLERGIES: She is allergic to budesonide and formoterol fumarate. PHYSICAL EXAMINATION: Vital Signs: Blood pressure was 135/60. Cardiovascular System: First and second heart sounds were heard. There was an ejection systolic murmur. Respiratory System: Dullness at the baseline with scattered wheeze. Abdomen: Soft and nontender. There was no guarding or rigidity. Bowel sounds were heard. Central Nervous System: Alert and oriented. She was moving all 4 extremities. Extremities: Examination of her extremities reveal no edema. LABORATORY EXAMINATION: WBC is 13, hemoglobin 11.6, hematocrit 36, and platelet count 405. Chemistry: Sodium is 141, potassium 3.9, BUN 15, and creatinine 0.7. Troponin was negative. ProBNP is 4846. Liver function tests were normal. TSH was 1.66 and free T4 1.03. Chest x-ray suggestive of bilateral basilar pleural effusions. She had a CT pulmonary angiogram on 03/21/2019 during her last hospitalization which revealed severe COPD, bilateral pleural effusions, and negative for pulmonary embolism. ASSESSMENT AND PLAN: Ms. Michelle Barker is a 73-year-old lady who is a smoker and smokes about a pack of cigarettes a day, has severe chronic obstructive pulmonary disease, hypertension, and severe aortic stenosis who was recently admitted with acute respiratory failure, chronic obstructive pulmonary disease, and pneumonia requiring intubation and was discharged home to rehab, who has come in with increasing shortness of breath and orthopnea. She does not have any pneumonic process at the present time, is afebrile, and I suspect her symptoms are secondary to severe aortic stenosis and heart failure. She has bilateral pleural effusions. RECOMMENDATIONS: 1. As far as medications are concerned I have added Lasix 40 mg to her medical regimen with potassium supplements. 2. She has severe aortic stenosis. She had not had any syncopal episodes or any chest discomfort per se and she has had longstanding aortic stenosis. However, this admission is probably secondary to her severe aortic stenosis and heart failure. I have explained to her and discussed in detail (this was also done by her primary senior compensation analyst, Dr. Frankel) regarding consideration of TAVR and further evaluation. The patient will discuss with her family and advise us whether she would like to have this procedure done at [place] or locally here at [place]. Given her recent admission I am inclined to have her transferred as an inpatient during this hospitalization. Thank you for the consult. We will follow the hospital course. cc: London Pak MD
[2019-04-19] MEDS: LASIX IV SCH (15:53)
--- NOTE | 2019-04-19 22:30 | CONSULTATION ---
DATE OF CONSULTATION: 04/19/2019 REQUESTING PROVIDER: CARTER Padron REASON FOR CONSULTATION: COPD, hypoxia. HISTORY OF PRESENT ILLNESS: This is a 73-year-old female with a medical history of COPD, ongoing tobacco abuse, hypothyroidism, anxiety, essential hypertension, and aortic stenosis. She presented to the ER yesterday morning with worsening shortness of breath and significant bilateral lower extremity edema. Her last admission to our facility was from 03/10/2019 to 03/27/2019, with respiratory failure secondary to COPD exacerbation and right lower lobe Pseudomonas aeruginosa pneumonia. She required intubation from 03/11/2019-03/16/2019. She was discharged to rehab on 03/27/2019. The patient reported that when she was in the rehab, her bilateral lower extremity edema became more and more noticeable. She had shortness of breath and she noticed that her oxygen saturation drop to the 70s at times, but she was never put on oxygen in the rehab. She was discharged from rehab to home last Sunday. Since then, she reported her shortness of breath and bilateral lower extremity edema were worsening so significantly that she cannot even stand on her feet because of the pain. She reports no cough, wheezing, chill, fever, chest pain, palpitations, bowel habit change or urination discomfort. She did feel like she is getting weaker. She is stating she is feeling a lot better now. She stated that oxygen helped her a lot. She also reported that she feels she has constipation and heart burn. Her last bowel movement was 2 days ago although she usually has a bowel movement every other day. PAST MEDICAL HISTORY: 1. COPD. 2. Tobacco abuse. 3. Hypothyroidism. 4. Anxiety. 5. Essential hypertension. 6. Severe aortic stenosis with severe pulmonary hypertension. 7. Prior admission with COPD exacerbation and right lower lobe Pseudomonas aeruginosa pneumonia. During that hospital stay, she required intubation from 03/11/2019 to 03/16/2019. PAST SURGICAL HISTORY: Hysterectomy. SOCIAL HISTORY: The patient lives at home with her . She smokes about a pack per day. She has no history of alcohol or illicit drug use. FAMILY HISTORY: Reviewed and noncontributory. ALLERGIES: Symbicort. REVIEW OF SYSTEMS: A 10-point review of systems was conducted and the pertinence is listed within the HPI, otherwise noncontributory. PHYSICAL EXAMINATION: Vital signs: Temperature 97.9, blood pressure 122/48, pulse 78, respiratory rate 21, oxygen saturation 94% on nasal cannula at 3 L.General: The patient is sitting on the bed with some mild respiratory distress noted. HEENT: Atraumatic, normocephalic. Trachea midline. Mucosa pink and moist. Respiratory: Slightly labored with mildly increased work of breathing, but no accessory muscle use. Symmetrical excursion. Auscultation revealed diminished breathing sounds bibasilarly and mild early inspiratory crackles bibasilarly. Cardiovascular: Regular rate and rhythm, with murmur noted. Gastrointestinal: Soft, nondistended, nontender. Normoactive bowel sounds in all 4 quadrants. Extremities: Bilateral lower extremity pitting edema 2+. No cyanosis. No clubbing. Dorsalis pedis diminished bilaterally. Neurologic: Alert and oriented x3. Speech fluent. Follows commands. LABORATORY DATA: White blood cells 13.12, hemoglobin 11.6, hematocrit 36.6, platelets 105,000. Sodium 141, potassium 3.9, chloride 99, carbon dioxide 27, BUN 15, creatinine 0.7, glucose 152. ABG pH 7.39, pCO2 is 47, PO2 is 64, HCO3 is 27.0, base excess 2.9, and oxyhemoglobin of 91.0. IMAGING DATA: Chest x-ray shows stable chest with bilateral pleural effusions and adjacent bibasilar atelectasis. ASSESSMENT: This is a 73-year-old female with a medical history of chronic obstructive pulmonary disease with ongoing tobacco abuse; hypothyroidism; anxiety; essential hypertension; severe aortic stenosis. Her last admission to our facility was from 03/10/2019 to 03/27/2019, with 5 days of intubation. She has been admitted since yesterday with likely congestive heart failure exacerbation. 1. Acute on likely chronic hypoxic respiratory failure. 2. Chronic obstructive pulmonary disease. Really no exacerbation noted at this time. 3. Likely congestive heart failure exacerbation. Her last echocardiogram was done on 03/21/2019 and revealed severe aortic stenosis with trace aortic regurgitation; trace tricuspid regurgitation with moderate to severe pulmonary hypertension; mild concentric left ventricular hypertrophy with estimated ejection fraction at least 65%; grade 1 left ventricular diastolic dysfunction; borderline left atrial enlargement. PLAN: 1. Continue supplemental oxygen. Agree that patient will benefit home oxygen. 2. Continue bronchodilators and diuretics. Agree to taper IV steroid down. 3. Follow up with BMP, sputum culture and blood culture. Chest x-ray if indicated. 4. Continue daily smoking cessation. 5. Further recommendations pending hospital course. Thank you for the courtesy of this consult. Dictated by CARTER Nickerson for Son Martinez MD cc: CARTER Nickerson MD [facility]
[2019-04-20] MEDS: DUONEB (A & A) INH SCH ×6 (03:52→23:18)
[2019-04-20] MEDS: SOLU-MEDROL IV SCH ×3 (06:30→22:47)
[2019-04-20 07:49] LABS: BUN 23 mg/dL (8-22); CALCIUM 8.3 mg/dL (8.8-10.2)
[2019-04-20] MEDS: SPIRIVA INH SCH (08:05)
[2019-04-20 08:11] LABS: AGAP 12; CHLORIDE 98 mmol/L (98-107); CREATININE 0.8 mg/dL (0.5-0.9); ESTIMATED GFR > 60; GLUCOSE 114 mg/dL (70-104); POTASSIUM 4.2 mmol/L (3.5-5.1); SODIUM 139 mmol/L (136-145); TCO2 29 mmol/L (25-35)
[2019-04-20 08:32] LABS: COSMO 282
--- NOTE | 2019-04-20 08:34 | PROGRESS NOTE ---
DATE: 04/20/2019 SUBJECTIVE: She reports that she is breathing better. She had a good night's sleep last night. OBJECTIVE: She remains afebrile, temperature 98.3 degrees, pulse 70, respirations 18, blood pressure 125/45. Pupils are equal and round. Lungs are clear in all lung carey. Cardiovascular Examination: Regular rhythm and rate without murmur or S3. Abdomen is soft. Skin is warm and dry. Urine output is 2000 mL. ASSESSMENT AND PLAN: 1. Acute and likely chronic hypoxemic respiratory failure, chronic obstructive pulmonary disease. No exacerbation but she, I think, will require oxygen at home. 2. Severe aortic stenosis with diastolic dysfunction and elevated pulmonary pressure. I am not sure that anything can be improved. I do think she will need supplementary oxygen to help but cardiology is following and pulmonary is following. 3. Nutrition. Oral intake is good. 4. She has aortic stenosis. She has not had any syncopal episodes or chest discomfort. She has had long-standing aortic stenosis and this admission is probably secondary to her severe aortic stenosis and diastolic dysfunction as well as underlying chronic obstructive pulmonary disease and pulmonary hypertension. Dr. Pak has discussed consideration of transcatheter aortic valve replacement and further evaluation. She will discuss with her family. Hopefully, we can get her home tomorrow with supplemental oxygen and she get followup with cardiology and either cardiovascular surgery in [place] or [place]. cc: Colby Parsons MD
[2019-04-20] MEDS: PRINIVIL PO SCH (10:19)
[2019-04-20] MEDS: KLOR-CON PO SCH (10:19)
[2019-04-20] MEDS: NEURONTIN PO SCH (10:19)
[2019-04-20] MEDS: SYNTHROID PO SCH (10:20)
[2019-04-20] MEDS: TENORMIN PO SCH (10:20)
[2019-04-20] MEDS: LASIX IV SCH (10:20)
[2019-04-20] MEDS: DULCOLAX PR SCH ×2 (10:20→22:47)
[2019-04-21] MEDS: DUONEB (A & A) INH SCH ×5 (02:32→19:12)
[2019-04-21] MEDS: SOLU-MEDROL IV SCH ×2 (06:20→13:37)
[2019-04-21] MEDS ORDERED: PRILOSEC PO SCH (07:00)
[2019-04-21] MEDS: SPIRIVA INH SCH (07:35)
[2019-04-21] MEDS: NEURONTIN PO SCH (09:23)
[2019-04-21] MEDS: PRINIVIL PO SCH (09:23)
[2019-04-21] MEDS: SYNTHROID PO SCH (09:23)
[2019-04-21] MEDS: KLOR-CON PO SCH (09:23)
[2019-04-21] MEDS: LASIX IV SCH (09:23)
[2019-04-21] MEDS: DULCOLAX PR SCH (09:24)
[2019-04-21] MEDS: TENORMIN PO SCH (09:30)
--- NOTE | 2019-04-21 10:02 | PROGRESS NOTE ---
DATE: 04/21/2019 SUBJECTIVE: Ms. Barker is breathing better and feeling better. The plan is to get her to [place] to get evaluated for transvascular aortic valve replacement. She has severe aortic stenosis. OBJECTIVE: Temperature 98.0 degrees, pulse 64, respirations 16, blood pressure 130/48. Pupils are equal and round. Lungs are clear in all lung carey. Cardiovascular Examination: Regular rhythm and rate without murmur or S3. Abdomen is soft. Skin is warm and dry. ASSESSMENT AND PLAN: 1. Acute on likely chronic hypoxemic respiratory failure. 2. Chronic obstructive pulmonary disease, really no exacerbations. 3. Likely congestive heart failure exacerbation. Echocardiogram done on 03/21/2019 showed severe aortic stenosis, trace aortic regurgitation, trace tricuspid regurgitation, moderate to severe pulmonary hypertension, mild concentric left ventricular hypertrophy, estimated ejection fraction of 65%, grade 1 ventricular diastolic dysfunction, and left atrial enlargement. We are going to see if she is a candidate for aortic valve replacement. I think her volume status looks good. Plan is to try and get her to [place] today or tomorrow if we can. 4. Hypothyroidism. She is on her Synthroid. 5. Hypertension. Blood pressure appears appropriately controlled. cc: Colby Parsons MD
[2019-04-21 18:27] VITALS: BP 108/43
--- NOTE | 2019-05-11 17:46 | DISCHARGE SUMMARY ---
ADMISSION DATE: 04/18/2019 DISCHARGE DATE: 04/21/2019 Transferred to [facility] on 04/21/[address] Kirsten Noel. She had just gotten out of rehab. This is a 73-year-old just got out rehab. She was admitted a couple times last couple months for COPD exacerbation. She went home and went to rehab. She has really not had any oxygen she uses her 's. She can tell she is getting more short of breath and getting weaker. Denied any fever, chills, pleuritic pain, just feels like she is getting more short of breath. PAST MEDICAL HISTORY: 1. COPD approaching end-stage. 2. Hypertension. 3. Hypothyroidism. 4. Aortic stenosis. PAST SURGICAL HISTORY: She has had a hysterectomy. So admitted with COPD exacerbation but concern that a good portion of this is from her atrial stenosis. She has mild left ventricular hypertrophy. Ejection fraction 65%. Cardiology was asked to see and they agreed that she has chronic obstructive pulmonary disease, hypertension, severe aortic stenosis and was recently admitted with acute respiratory failure, chronic obstructive pulmonary disease, pneumonia, required intubation, discharged home but has increased shortness of breath and dyspnea, orthopnea, does not have any definite new pneumonic process going on so feel like most of this is from her aortic stenosis and they made arrangements for her to be transferred to [place]. She was transferred on 04/21/2019. cc: Colby Parsons MD
== END 2019-04-21 20:52 | disposition short-term general hospital (02) | DRG 291 ==
LOC: SUPCPDRO → ED 10:35 → EDIPHOLD 15:27 → 3N 16:45
PROVIDERS: ATTEND Emergency Medicine

== ENCOUNTER 2019-07-24 14:16 | Inpatient (IN) ==
--- NOTE | 2019-07-24 15:54 | Diag Imaging Result Doc PS360 ---
EXAM: CHEST-2 VIEWS - 07/24/2019 HISTORY: short of breath TECHNIQUE: Chest two views COMPARISON: None. FINDINGS: Heart size is normal. There is prosthetic aortic valve again seen. There are COPD changes with hyperexpanded lungs. There is stable right middle lobe calcified granuloma from old granulomatous disease. There is possibly mild infiltrate at the lateral right base. There is an apparent tiny right pleural effusion. There are no other acute changes identified. There is no evidence of pneumothorax. IMPRESSION: COPD changes with hyperexpanded lungs. Possible mild infiltrate at lateral right base. Apparent tiny right pleural effusion. Electronically signed by George Contreras 07/24/2019 3:52 PM
[2019-07-24 15:55] LABS: BASO# 0.06 X1000 (0.0-0.2); BASO% 0.8 % (0.0-0.8); HEMATOCRIT 39.7 % (37.0-47.0); HEMOGLOBIN 13.1 g/dL (12.0-16.0); IMM GRAN# 0.02 X1000 (0.0-0.04); IMM GRAN% 0.3 % (0.0-0.5); LYMPH# 0.88 X1000 (1.2-3.4); LYMPH% 12.2 % (20.5-51.1); MCH 31.2 PG (27-31); MCV 94.5 FL (81-99); MONO# 0.99 X1000 (0.11-0.59); MONO% 13.7 % (1.7-9.3); NEUT# 5.26 X1000 (1.4-6.5); PLT 291 X1000 (130-400); RDW 15.1 % (11.5-14.5); WBC 7.21 X1000 (4.8-10.8)
[2019-07-24 16:06] LABS: ESTIMATED GFR > 60
[2019-07-24 16:08] LABS: AGAP 11; ALB/GLOB RATIO 1.2; ALKALINE PHOSPHATASE 74 U/L (32-104); BUN 11 mg/dL (8-22); CALCIUM 9.5 mg/dL (8.8-10.2); CHLORIDE 83 mmol/L (98-107); COSMO 255; CREATININE 0.7 mg/dL (0.5-0.9); GLUCOSE 103 mg/dL (70-104); GOT 26 U/L (10-30); GPT 11 U/L (10-36); POTASSIUM 3.4 mmol/L (3.5-5.1); SODIUM 127 mmol/L (136-145); TCO2 33 mmol/L (25-35); TOTAL PROTEIN 7.4 g/dL (6.3-8.3)
[2019-07-24 16:30] LABS: ALLEN TEST YES; BE 8.1 mmoll (-3.0-3.0); BLOOD TYPE ARTERIAL; HCO3-(ACT) 31.1 mmoll (20.0-26.0); O2(CT) 19.6 mL/dL (15.0-23.0); O2HB 94.2 % (95.0-99.0); PO2(98.6) 79 mmHg (60-100); SAMPLE BLOOD; SAO2 97.9 % (95.0-100.0); THB 14.8 g/dL (11.5-17.4); pH(98.6) 7.35 (7.35-7.45)
[2019-07-24 16:35] LABS: MODALITY CANNULA; PCO2(98.6) 66 mmHg (35-45)
--- NOTE | 2019-07-24 16:43 | EKG Report ---
Test Performed on : 07/24/2019 4:26:08 PM Test Reason : SOB Blood Pressure : / mmHG Vent. Rate : 072 BPM Atrial Rate : 072 BPM P-R Int : 114 ms QRS Dur : 110 ms QT Int : 394 ms P-R-T Axes : 079 076 071 degrees QTc Int : 431 ms Sinus rhythm. with premature atrial complexes. Incomplete left bundle branch block Left ventricular hypertrophy with repolarization abnormality Abnormal ECG When compared with ECG of 17-MAR-2019 08:52, premature ventricular complexes. are no longer present premature atrial complexes. are now present Vent. rate has decreased BY 66 BPM Incomplete left bundle branch block is now present Unconfirmed Result
--- NOTE | 2019-07-24 17:44 | Diag Imaging Result Doc PS360 ---
CT ANGIOGRM PULMONARY ARTERIES - 07/24/2019 INDICATION: Elevated D-Dimer TECHNIQUE: Axial CT images were obtained after administering intravenous contrast. Coronal MIP images were generated. COMPARISON: 03/21/2019 FINDINGS: There is no pulmonary embolism. There is an aortic valve replacement. Heart size is top normal. No adenopathy. There is severe COPD. There is some bronchopneumonia in the right middle lobe. No pneumothorax or pleural effusion. There are moderate degenerative changes of the spine. No acute or suspicious bony lesion. IMPRESSION: Negative for pulmonary embolism. Severe COPD. Bronchopneumonia in the right middle lobe. This exam was performed using automated exposure control, adjustment of mA or kV according to patient size, and/or use of iterative reconstruction technique Electronically signed by Joe Chicas 07/24/2019 5:42 PM
[2019-07-24] MEDS ORDERED: DUONEB (A & A) INH ONE (17:55)
--- NOTE | 2019-07-24 18:23 | PROVIDER DOCUMENTATION ---
This chart was entered by Michelle Aleman Scribe, acting as scribe for Hua Gorman MD. HPI-Respiratory General - General Chief Complaint: Shortness of Breath Stated Complaint: SOB Time Seen by Provider: 07/24/19 15:04 Source: patient, family () Allergies/Adverse Reactions: Patient Allergies Allergy/AdvReac Type Severity Reaction Status Date / Time adhesive tape Allergy RASH Verified 07/24/19 15:30 budesonide [From Symbicort] Allergy HIVES Verified 07/24/19 15:30 formoterol fumarate * Allergy HIVES Verified 07/24/19 15:30 [From Symbicort] Penicillins Allergy Unknown Verified 07/24/19 15:30 Home Medications: Home Medication List Medication Instructions Recorded Confirmed Last Taken Type Atenolol 25 mg PO DAILY 01/11/16 07/24/19 06/04/19 06:30 History LISINOpril [Prinivil] 5 mg PO DAILY 01/11/16 07/24/19 06/03/19 08:00 History Levothyroxine [Synthroid] 75 microgm PO DAILY 01/11/16 07/24/19 06/03/19 08:00 History Fluticasone/Vilanterol [Breo 1 inh INH ORDERED 03/10/19 07/24/19 06/03/19 06:30 History Ellipta 200-25 Mcg INH] Gabapentin 100 mg PO DAILY 03/10/19 07/24/19 06/03/19 21:00 History Mirtazapine 15 mg PO DAILY 03/10/19 07/24/19 06/03/19 08:00 History ATORVAstatin [Lipitor] 20 mg PO QHS 06/02/19 07/24/19 06/03/19 08:00 History Aspirin 81 mg PO DAILY 06/02/19 07/24/19 05/30/19 History Clopidogrel [Plavix] 75 mg PO DAILY 06/02/19 07/24/19 06/03/19 21:00 History Furosemide 40 mg PO DAILY 06/02/19 07/24/19 06/03/19 08:00 History Ipratropi/Alb 0.5 - 2.5 mg INH 4XDAY 06/02/19 07/24/19 Unknown History Alprazolam [Xanax] 0.25 mg PO BID PRN 07/19/19 07/24/19 Unknown History Azithromycin [Zithromax] 250 mg PO DAILY #4 tab 07/19/19 07/24/19 Unknown Rx - History of Present Illness-Resp Nature of Presenting Problem: 73 yowf presents to the ed with her with c/o worsening sob. pt has copd and is on home O2 and is a current smoker. pt was seen in ed on 07/19/19 and saw pcp yesterday with same complaints. pt does have recent hx of aortic valve replacement in apr [address] devi recently took a cyst from rt elbow. pt has had no difficulty with either sx. pt on examis is sitting on the side of the bed and speaking in 4-5 word sentences. pt denies pain on exam Quality of Pain: reports: none Severity in ED: reports: mild Onset/Duration: reports: other (chronic) Timing: reports: still present, getting worse Context: reports: recent URI Cough Quality/Degree: reports: moderate, dry cough Episode Frequency: chronic episodes Current Respiratory Medication Therapy: Initiated see nurses note Modifying Factors: improves with: sitting upright. worse with: lying down Associated Symptoms: reports: cough, shortness of breath. denies: chest pain/soreness, dizziness, wheezing Similar Symptoms Previously?: Yes (COPD) Recently seen or treated by another doctor?: Yes (has been to ed 07/19/19 and pcp yesterday) Review of Systems - Adult - REVIEW OF SYSTEMS - ADULT Constitutional: reports: no symptoms reported Eyes: reports: no symptoms reported Ears, Nose, Mouth & Throat: reports: no symptoms reported Cardiovascular: denies: chest pain, palpitations Respiratory: reports: see HPI, chronic cough, dyspnea on exertion, shortness of breath. denies: wheezing Gastrointestinal: denies: diarrhea, nausea, vomiting Genitourinary: reports: no symptoms reported Musculoskeletal: denies: back pain, neck pain Integumentary: reports: no symptoms reported Neurological: denies: dizziness/vertigo, headache/migraines Psychiatric: reports: no symptoms reported Endocrine: reports: no symptoms reported Hematologic/Lymphatic: reports: no symptoms reported Allergic/Immunologic: reports: no symptoms reported All Other Systems: Reviewed and Negative Past History - Adult - PAST MEDICAL HISTORY-ADULT Review of Records: reports: Old Records Reviewed, Nursing Assessment Review, Medications Reviewed, Social history reviewed & non-contributory. Major Childhood Illnesses: reports: denies history Cardiovascular: reports: HTN Respiratory: reports: COPD Gastrointestinal: reports: denies history Obstetrical/Gynecological: reports: denies history Genitourinary: reports: denies history Musculoskeletal: reports: denies history Neurological: reports: denies history Psychiatric: reports: anxiety Endocrine/Immune: reports: thyroid disorder Other Conditions: reports: denies history - PRIOR SURGERIES/PROCEDURES Surgical/Procedure History: reports: recent surgery (had cardiac sx 04/2019 and recently had cyst removed from rt elbow), reviewed, not pertinent - IMMUNIZATION STATUS Childhood Immunizations: See Nurse Assessment Flu Vaccine: See Nurse Assessment - FAMILY HISTORY Family History: reviewed, not pertinent - SOCIAL HISTORY Smoking: cigarettes, less than 1 pack/day Provider spent 3-5 mins advising pt. on dangers of tobacco.: Discussed manners to quit use, and f/u contacts for add'l counseling. Substance Use: denies Living Situation: family Physical Exam-General - PHYSICAL EXAM-ADULT Initial Vital Signs Reviewed: Yes - CONSTITUTIONAL General Appearance: alert, mild distress - EYES Eyes: PERRL/EOMI, pink conjunctivae - HEAD, EARS, NOSE, MOUTH & THROAT HENMT: moist mucous membranes - NECK Neck: normal inspection - RESPIRATORY Respiratory: chest non-tender, decreased breath sounds - CARDIOVASCULAR Cardiovascular: normal peripheral pulses, regular rate, rhythm - CHEST (BREASTS) Chest/Breast: deferred - GASTROINTESTINAL (ABDOMEN) Abdominal Exam: normal bowel sounds, non tender, soft - GENITOURINARY Female Genitalia/Pelvic Exam: deferred Rectal Exam: deferred Hemoccult Exam: deferred - MUSCULOSKELETAL Back Exam: normal inspection, no CVA tenderness, no vertebral tenderness Extremity: normal range of motion, normal inspection, normal capillary refill, other (pt has bandaid over rt elbow where recently had a cyst removed. area shows o sign of infection with full rom of joint) - SKIN Integumentary: normal color, normal turgor, warm/dry - NEUROLOGIC Neurologic: grossly normal - PSYCHIATRIC Psych/Mental Status: normal mood/affect, normal thought content, normal thought process, oriented x 3 - HEART Score HEART Score: History: Slightly Suspicious HEART Score: ECG: Non-Specific Repolarization Disturbance/LBBB/PM HEART Score: Age: > or = 65 Years HEART Score: Risk Factors for Atherosclerotic Disease: 1 or 2 Risk Factors HEART Score: Troponin: < or = Normal Limit Total HEART Score:: 4 Progress - PLAN OF CARE/RESULTS Progress/Plan/Lab Results: Vital Signs - 8 hr 07/24/19 14:21 Temperature 98.2 F Pulse Rate 77 Respiratory Rate 20 Blood Pressure 127/62 O2 Sat by Pulse Oximetry 98 Laboratory Results - last 24 hr 07/24/19 07/24/19 07/24/19 15:22 15:22 15:22 WBC 7.21 RBC 4.20 Hgb 13.1 Hct 39.7 MCV 94.5 MCH 31.2 H MCHC 33.0 RDW Std Deviation 15.1 H Plt Count 291 MPV 10.0 Immature Gran % (Auto) 0.3 Neut % (Auto) 73.0 Lymph % (Auto) 12.2 L [place] % (Auto) 13.7 H Eos % (Auto) 0.0 Baso % (Auto) 0.8 Immature Gran # (Auto) 0.02 Neut # (Auto) 5.26 Lymph # (Auto) 0.88 L [place] # (Auto) 0.99 H Eos # (Auto) 0.00 Baso # (Auto) 0.06 D-Dimer, Quantitative Specimen Type Sample Site pH pCO2 pO2 HCO3 Base Excess Oxyhemoglobin ABG O2 Sat (Calculated) ABG O2 Saturation ABG Carboxyhemoglobin ABG Methemoglobin Colby Test A-a O2 Difference Total Hemoglobin Lactate Blood Gas Modality FiO2 % Sodium 127 L Potassium 3.4 L D Chloride 83 L Carbon Dioxide 33 Anion Gap 11 BUN 11 Creatinine 0.7 Estimated GFR/1.73 m2 > 60 BUN/Creatinine Ratio 16 Glucose 103 Calculated Osmolality 255 Calcium 9.5 Total Bilirubin 0.30 AST 26 ALT 11 Alkaline Phosphatase 74 Troponin T [id number] Pept 731 H Total Protein 7.4 Albumin 4.0 Globulin 3.4 Albumin/Globulin Ratio 1.2 07/24/19 07/24/19 07/24/19 15:22 15:22 16:15 WBC RBC Hgb Hct MCV MCH MCHC RDW Std Deviation Plt Count MPV Immature Gran % (Auto) Neut % (Auto) Lymph % (Auto) [place] % (Auto) Eos % (Auto) Baso % (Auto) Immature Gran # (Auto) Neut # (Auto) Lymph # (Auto) [place] # (Auto) Eos # (Auto) Baso # (Auto) D-Dimer, Quantitative 0.71 H Specimen Type ARTERIAL Sample Site R RADIAL pH 7.35 pCO2 66 H* pO2 79 HCO3 31.1 H Base Excess 8.1 H Oxyhemoglobin 94.2 L ABG O2 Sat (Calculated) 19.6 ABG O2 Saturation 97.9 ABG Carboxyhemoglobin 2.80 H ABG Methemoglobin 1.0 Colby Test YES A-a O2 Difference 67.0 Total Hemoglobin 14.8 Lactate 1.10 Blood Gas Modality CANNULA FiO2 % 32.0 Sodium Potassium Chloride Carbon Dioxide Anion Gap BUN Creatinine Estimated GFR/1.73 m2 BUN/Creatinine Ratio Glucose Calculated Osmolality Calcium Total Bilirubin AST ALT Alkaline Phosphatase Troponin T < 0.010 [id number] Pept Total Protein Albumin Globulin Albumin/Globulin Ratio Orders Category Date Time Status Nursing- Obtain EKG once Care 07/24/19 16:07 Active CHEST-2 VIEWS [RAD] Stat Exams 07/24/19 15:05 Completed CTA [CT ANGIOGRM PULMONARY ARTERIES] [CT] Stat Exams 07/24/19 16:02 Completed ABG [RESP] Routine Lab 07/24/19 16:15 Completed CBC WITH ELECTRONIC DIFF [HEME] Stat Lab 07/24/19 15:22 Completed COMPREHENSIVE METABOLIC PANEL [CHEM] Stat Lab 07/24/19 15:22 Completed D-DIMER [COAG] Stat Lab 07/24/19 15:22 Completed TROPONIN T Stat Lab 07/24/19 15:22 Completed pro-bnp [PRO B-NATRIURETIC PEPTIDE] Stat Lab 07/24/19 15:22 Completed Albuterol 2.5MG/Ipratrop 0.5MG [Duoneb (A & A)] Med 07/24/19 17:55 Discontinued 3 ml INH NOW ONE Aerosol Treatments Routine Oth 07/24/19 17:55 Active Aerosol Treatments Stat Oth 07/24/19 17:55 Active EKG [EKG] Stat Ther 07/24/19 16:07 Draft Result Diagrams: 07/24/19 15:22 07/24/19 15:22 - REASSESSMENT Reassessment #1 Time Reassessed: 16:05 (Pt has elevated D-dimer; will send for CTA Pulm) Reassessment #2 Time Reassessed: 18:00 (CTA PE negative for PE; pt has pneumonia; Dr. Salinas made aware) - EKG 1 Time of EKG reading by physician:: 16:26 EKG Read and Signed by:: Vincenzo Almonte EKG Interpretation (*Must complete 3 of following elements*): Abnormal Rate: 72 Rhythm: sinus rhythm with pac QRS: LBB (incomplete), LVH W[place] Interval: normal ST Wave: normal - XRAY 1 XRAY Study: Chest Impression: See EMR Report (EXAM: CHEST-2 VIEWS - 07/24/2019 HISTORY: short of breath TECHNIQUE: Chest two views COMPARISON: None. FINDINGS: Heart size is normal. There is prosthetic aortic valve again seen. There are COPD changes with hyperexpanded lungs. There is stable right middle lobe calcified granuloma from old granulomatous disease. There is possibly mild infiltrate at the lateral right base. There is an apparent tiny right pleural effusion. There are no other acute changes identified. There is no evidence of pneumothorax. IMPRESSION: COPD changes with hyperexpanded lungs. Possible mild infiltrate at lateral right base. Apparent tiny right pleural effusion. Electronically signed by George Contreras 07/24/2019 3:52 PM 07/24/19 1552 Interpreting Physician: George Contreras MD Dictated Date/Time: 07/24/19 2950 cc: Hua Gomran MD; Danielle Womack) XRAY Interpretation: possible infiltrate, lateral right base - CT/MRI 1 CT Study: Angiogram Impression: See EMR Report (CT ANGIOGRM PULMONARY ARTERIES - 07/24/2019 INDICATION: Elevated D-Dimer TECHNIQUE: Axial CT images were obtained after administering intravenous contrast. Coronal MIP images were generated. COMPARISON: 03/21/2019 FINDINGS: There is no pulmonary embolism. There is an aortic valve replacement. Heart size is top normal. No adenopathy. There is severe COPD. There is some bronchopneumonia in the right middle lobe. No pneumothorax or pleural effusion. There are moderate degenerative changes of the spine. No acute or suspicious bony lesion. IMPRESSION: Negative for pulmonary embolism. Severe COPD. Bronchopneumonia in the right middle lobe. This exam was performed using automated exposure control, adjustment of mA or kV according to patient size, and/or use of iterative reconstruction technique Electronically signed by Joe Chicas 07/24/2019 5:42 PM 07/24/19 1742 Interpreting Physician: Joe Chicas MD Dictated Date/Time: 07/24/19 1740 cc: Hua Gorman MD; Danielle Womack) CT Results: No PE, Severe COPD, RML pneumonia - CONSULTS/PCP/HOSPITALIST Notification #1 *Consult/PCP/Hospitalist*: hospitalist dr salinas Time Discussed: 17:11 Reason/Comments: is in ed Consult Disposition: Admit Departure - Departure Date of Disposition Decision: 07/24/19 Time of Disposition Decision: 17:57 DIAGNOSIS: Tobacco use disorder, COPD exacerbation Pneumonia Qualifiers: Pneumonia type: due to unspecified organism Laterality: right Lung location: middle lobe of lung Qualified Code(s): J18.1 - Lobar pneumonia, unspecified organism Disposition: ADMITTED INPATIENT 09 Certified Medical Emergency: Emergent Condition: Fair Referrals and Follow-Ups: Danielle Womack CRNP [Primary Care Provider] - - Critical Care Note This patient required my direct & personal management of CC.: No Attestation - Physician/ LUISITO Attestation Patient care was provided by Advanced Practice Provider:: No The physician spent face to face time with patient:: Yes Advanced Practice Provider documentation review:: Supervising physician onsite and consulted in the evaluation and care of this patient. The physician did have a face to face encounter with the patient. This chart was documented by the indicated scribe, (Michelle Aleman Scribe) and accurately reflects the services I performed and decisions made by me, Hua Gorman MD, as attested by the provider's signature.
[2019-07-24] MEDS ORDERED: DUONEB (A & A) INH PRN (19:05)
[2019-07-24] MEDS: MUCOMYST 20% INH SCH (19:30)
[2019-07-24] MEDS: DUONEB (A & A) INH SCH ×2 (19:40→23:19)
[2019-07-24] MEDS ORDERED: NS 500 ML IV SCH (20:30)
--- NOTE | 2019-07-24 23:24 | HISTORY AND PHYSICAL ---
CHIEF COMPLAINT: Shortness of breath. HISTORY OF PRESENT ILLNESS: A 73-year-old, female, with a past medical history of advanced COPD, hypertension, hypothyroidism, and aortic stenosis, presented to the emergency department with a chief complaint of shortness of breath that has been going on for the past couple of months, but for the past week and especially today, is worse to the point that she decided to come to the emergency department. This patient has been hospitalized a couple of times and is well known by our service. This is the third hospitalization in the past six months, and even though she has advanced COPD, she is still smoking at least half a pack a day. Her is at the bedside. In the emergency department, they checked her D-dimer and it was slightly elevated at 0.71, and they asked for a CT angiogram of the chest that did show any pulmonary embolism, but showed severe COPD and bronchopneumonia in the right middle lobe. This patient seems to be in some [id number] respiratory distress. She seems to be tired. She will be admitted to the PVC unit. She will be placed on breathing treatment. Surprisingly, she is not wheezing today, so I will not add steroids. I will put this patient on levofloxacin because she is allergic to penicillin. I will put this patient back on her home medications, except that I will hold for now lisinopril and Lasix because she just had a CT angiogram done, but I will restart that in 1 or 2 days, depending on her kidney function. She is retaining CO2. Sodium level is low and it has been on and off low, and she has hypokalemia as well. We will monitor this patient closely. Hopefully, she will be discharged in a few days. She has been also complaining of chills, but no fever. She denies nausea, vomiting, diarrhea, constipation. She has been losing weight, but she does not know exactly how much weight she has been losing. She is complaining also of generalized weakness. She denies headache, hematochezia, or melena. No hematemesis either. REVIEW OF SYSTEMS: All the 14 points of review of systems were reviewed, all of them negative, except as per HPI. PAST MEDICAL HISTORY: Advanced COPD, hypertension, hypothyroidism, aortic stenosis, and protein- calorie malnutrition, I would say moderate to severe. PAST SURGICAL HISTORY: Hysterectomy. SOCIAL HISTORY: She still smokes around half a pack a day. No drugs or alcohol. She lives with the . ALLERGIES: Symbicort, penicillins, adhesive tape. PHYSICAL EXAMINATION: VITAL SIGNS: Temperature 98.2 degrees, pulse 70, respiratory rate 16, blood pressure 123/62, oxygen saturation 99 on 2 L of nasal cannula. HEENT: Head normocephalic, no trauma. PERRLA. NECK: Supple. No JVD. No masses. Central trachea. CHEST: Decreased breath sounds globally with prolonged expiratory phase and rhonchi on the right side of the thorax, especially mid side and lower part of the thorax. No wheezing. ABDOMEN: Soft, nontender, nondistended. No hepatosplenomegaly. EXTREMITIES: No edema. No clubbing. No cyanosis. NEUROLOGICAL: The patient is alert and oriented x3. No focal deficits. Decreased muscle mass. LABORATORY: WBC 7.2, hemoglobin 13.1, hematocrit 39.7, platelets 291,000. Sodium 137, potassium 3.4, chloride 83, bicarbonate 33, BUN 17, creatinine 0.7, glucose 103, calcium 9.5. AST 26, ALT 11, alkaline phosphatase 74. ProBNP 731. ASSESSMENT AND PLAN: 1. Right middle lobe pneumonia. I will put this patient on levofloxacin. She is allergic to penicillins. I will put this patient also on breathing treatment, and I will monitor this patient closely. Oxygen supplementation, pulmonary toilet. 2. Chronic obstructive pulmonary disease, but not in exacerbation at this moment. Continue breathing treatment and home medications. 3. Chronic hypercarbic respiratory failure. Normally, she uses oxygen at home, and I will continue with that. She is retaining CO2 due to her advanced COPD, and has been that way for the past few months. 4. Hyponatremia. This is chronic. Clinically, she probably seems to be a little bit dehydrated. I will hold for now the Lasix and the lisinopril, and I will give her a little bit of fluids x1. As per the and the patient, she has not been eating or drinking too much. Her appetite is really low. I will try to help her appetite with Megace by mouth. 5. Hypothyroidism. Continue with same management. 6. Tobacco abuse. This patient is still smoking at least half a pack a day, even though she has advanced COPD. I do not think she is going to quit smoking at this point. This patient has been highly advised against tobacco use. I will continue with daily cessation and education. 7. Mild hypokalemia and hypochloremia. I will keep an eye on this for now, and I will recheck the lab work in the morning. 8. Elevated D-dimer. CT angiogram of the chest has been negative. I do not see any signs of deep vein thrombosis, but we will ask for a Doppler ultrasound of the lower extremities. Further recommendations pending hospital course. cc: Harjeet Warren MD
[2019-07-25] MEDS: HEPARIN SUBQ SCH ×3 (00:21→20:45)
[2019-07-25] MEDS: LEVAQUIN 500 MG/D5W 500 MG/100 ML IVPB IV SCH ×2 (00:21→20:46)
[2019-07-25] MEDS: XANAX PO PRN ×2 (00:27→20:46)
[2019-07-25] MEDS: LIPITOR PO SCH ×2 (00:40→20:46)
[2019-07-25] MEDS: MEGACE PO SCH ×3 (00:40→20:46)
[2019-07-25] MEDS: DUONEB (A & A) INH SCH ×6 (02:34→23:16)
[2019-07-25] MEDS: SYNTHROID PO SCH (06:00)
[2019-07-25 07:56] LABS: BASO# 0.02 X1000 (0.0-0.2); BASO% 0.4 % (0.0-0.8); EOS# 0.03 X1000 (0.0-0.7); EOS% 0.6 % (0.0-10.0); HEMATOCRIT 33.7 % (37.0-47.0); HEMOGLOBIN 10.9 g/dL (12.0-16.0); LYMPH% 24.3 % (20.5-51.1); MCH 30.8 PG (27-31); MCHC 32.3 g/dL (33-37); MCV 95.2 FL (81-99); MONO# 0.79 X1000 (0.11-0.59); MONO% 14.7 % (1.7-9.3); MPV 10.3 FL (7.4-10.4); NEUT# 3.22 X1000 (1.4-6.5); PLT 271 X1000 (130-400); RBC 3.54 XMIL (4.2-5.4); WBC 5.36 X1000 (4.8-10.8)
[2019-07-25 08:00] LABS: ESTIMATED GFR > 60
[2019-07-25 08:02] LABS: AGAP 11; BUN 9 mg/dL (8-22); CALCIUM 9.1 mg/dL (8.8-10.2); CHLORIDE 86 mmol/L (98-107); COSMO 259; CREATININE 0.5 mg/dL (0.5-0.9); GLUCOSE 91 mg/dL (70-104); POTASSIUM 3.9 mmol/L (3.5-5.1); SODIUM 130 mmol/L (136-145); TCO2 33 mmol/L (25-35)
[2019-07-25] MEDS: TENORMIN PO SCH (09:06)
[2019-07-25] MEDS: ASPIRIN PO SCH (09:06)
[2019-07-25] MEDS: NEURONTIN PO SCH (09:06)
[2019-07-25] MEDS: PLAVIX PO SCH (09:06)
[2019-07-25] MEDS: REMERON PO SCH ×2 (10:47→20:46)
[2019-07-25] MEDS: MUCOMYST 20% INH SCH ×2 (11:57→19:27)
[2019-07-25] MEDS: SOLU-MEDROL IV SCH (13:30)
--- NOTE | 2019-07-25 14:54 | PROGRESS NOTE ---
DATE: 07/25/2019 SUBJECTIVE: This morning, Ms. Barker refers to be doing a little better. Still has some shortness of breath. She was actually undergoing her breathing treatment at the time of the encounter. OBJECTIVE: Vital signs: Blood pressure is 129/50, pulse of 66, respirations 17, temperature 98.7 degrees. General: Ms. Barker is a 73-year-old female. She was in bed, no distress. HEENT: Mucosa is pink and moist. Anicteric. Acyanotic. Neck: Supple. Chest: Air entry is bilaterally reduced. There is still some end expiratory wheezing bilaterally. Cardiovascular: Regular rate and rhythm. Abdomen: Soft, nontender. Bowel sounds present. Extremities: No pedal edema. PHARMACY TECH CUSTOMER SERVICE: Patient is awake, alert, and oriented. LABORATORY DATA: Has been reviewed. Hemoglobin is down to 10.9. Rest of CBC is unremarkable. Chemistry is also reviewed. Potassium is 130. MEDICATIONS: The patient's current medications have all been reviewed no changes. ASSESSMENT: 1. Dyspnea on presentation secondary to combination of right middle lobe bronchopneumonia and chronic obstructive pulmonary disease. 2. Severe chronic obstructive pulmonary disease in mild exacerbation. 3. Chronic hypoxemic respiratory failure. Patient is on home 2 oxygen. 4. Chronic hyponatremia. 5. Hypothyroidism. Will continue with Synthroid. 6. Acute on chronic hypercarbic respiratory failure. 7. Previous history of Pseudomonas pneumonia. Patient is currently getting anti pseudomonal coverage. PLAN: In general, I think Ms. Barker is doing fairly okay. We are going to continue with the nebulizations. We will also start her on steroids. Continue with the IV antibiotics and re- evaluate her in the morning. cc: Kike Waller MD
[2019-07-26] MEDS: SOLU-MEDROL IV SCH ×2 (00:18→12:08)
[2019-07-26] MEDS: DUONEB (A & A) INH SCH ×6 (03:21→23:27)
[2019-07-26] MEDS: SYNTHROID PO SCH (06:17)
[2019-07-26] MEDS: BREO ELLIPTA 200/25 MCG INH INH SCH (07:56)
[2019-07-26] MEDS: MUCOMYST 20% INH SCH ×2 (07:57→19:57)
[2019-07-26] MEDS: TENORMIN PO SCH (08:05)
[2019-07-26] MEDS: MEGACE PO SCH ×2 (08:05→21:20)
[2019-07-26] MEDS: PLAVIX PO SCH (08:05)
[2019-07-26] MEDS: ASPIRIN PO SCH (08:05)
[2019-07-26] MEDS: HEPARIN SUBQ SCH ×2 (08:05→21:20)
[2019-07-26] MEDS: NEURONTIN PO SCH (08:09)
[2019-07-26] MEDS: LASIX PO SCH (09:29)
[2019-07-26] MEDS: PRINIVIL PO SCH (09:29)
--- NOTE | 2019-07-26 13:52 | PROGRESS NOTE ---
DATE: 07/26/2019 Ms. Barker refers to be doing fairly okay. She says she has not been up enough to assess about her shortness of breath. She is currently on 3 L of supplemental oxygen. She is saturating 97%. Her vitals blood pressure is 120/39, pulse 67, respiration is 18, temperature is 98.6 degrees. General: Ms. Barker is a 73-year-old elderly female she is in bed on supplemental oxygen. Mucosa is pink and moist. Anicteric. Acyanotic. Neck: Supple. Chest: Air entry is bilaterally reduced, some distant mild expiratory rhonchi bilateral. No accessory muscle use. Cardiovascular: Regular rate and rhythm. No murmurs, no rubs, no gallops. GI: Abdomen is soft. Bowel sounds present. No hepatosplenomegaly. Extremities: No pedal edema. Distal pulses are present. LOANS OFFICER: Patient is awake, alert, oriented and follows basic commands. LABORATORY DATA: WBC is 5.36, hemoglobin is 10.9, platelet count of 271,000. Chemistry is also reviewed, is all from yesterday. No new changes. CURRENT MEDICATIONS: Have all been reviewed. She is on Levaquin 500 every 24 hours today is day 2, steroids and also nebulization therapy. No imaging studies for this morning. ASSESSMENT: 1. Dyspnea on admission secondary to combination of right middle lobe bronchopneumonia and chronic obstructive pulmonary disease exacerbation. The patient is currently on antimicrobial therapy, steroids and bronchodilation therapy. She seems to be doing a lot better. She is down to her home supplemental oxygen. 2. Severe chronic obstructive pulmonary disease in mild exacerbation improving. 3. Chronic hypoxemic respiratory failure. The patient is on 3 L of nasal cannula oxygenation at home. She is back to that same level now. 4. Chronic hyponatremia stable. 5. Hypothyroidism. Will continue with Synthroid. 6. Acute on chronic hypercarbic respiratory failure improved. 7. Previous history of Pseudomonas pneumonia. Patient is currently getting antipseudomonal coverage (Levaquin). So in general I think Ms. Barker is doing a lot better. She got evaluated by physical therapy yesterday, she was able to do 120 feet with contact guard assist. She did ambulate with 3 L of portable oxygen. We are going to get a repeat chest x-ray on her tomorrow. Repeat ABGs to follow up on the pCO2 as well as her sodium tomorrow morning and reevaluate her and make a decision if she can potentially be discharged. cc: Kike Waller MD
[2019-07-26] MEDS: LIPITOR PO SCH (21:20)
[2019-07-26] MEDS: REMERON PO SCH (21:20)
[2019-07-26] MEDS: XANAX PO PRN (21:20)
[2019-07-26] MEDS: LEVAQUIN 500 MG/D5W 500 MG/100 ML IVPB IV SCH (21:20)
[2019-07-27] MEDS: SOLU-MEDROL IV SCH (01:10)
[2019-07-27] MEDS: DUONEB (A & A) INH SCH ×3 (03:37→11:16)
[2019-07-27 06:21] LABS: HEMATOCRIT 37.3 % (37.0-47.0); HEMOGLOBIN 11.9 g/dL (12.0-16.0); MCH 31.6 PG (27-31); MCHC 31.9 g/dL (33-37); MCV 98.9 FL (81-99); MPV 10.1 FL (7.4-10.4); RBC 3.77 XMIL (4.2-5.4); RDW 15.2 % (11.5-14.5); WBC 8.93 X1000 (4.8-10.8)
[2019-07-27] MEDS: SYNTHROID PO SCH (06:36)
[2019-07-27 07:00] LABS: AGAP 10; ALBUMIN 3.8 g/dL (3.5-5.0); BUN 18 mg/dL (8-22); CALCIUM 9.7 mg/dL (8.8-10.2); CHLORIDE 92 mmol/L (98-107); COSMO 275; CREATININE 0.8 mg/dL (0.5-0.9); ESTIMATED GFR > 60; GLUCOSE 114 mg/dL (70-104); PHOSPHORUS 2.9 mg/dL (2.7-4.5); POTASSIUM 4.8 mmol/L (3.5-5.1); SODIUM 136 mmol/L (136-145); TCO2 34 mmol/L (25-35)
--- NOTE | 2019-07-27 08:04 | Diag Imaging Result Doc PS360 ---
EXAM: CHEST-2 VIEWS INDICATION: hypoxia TECHNIQUE: 2 views COMPARISON: 07/24/2019 FINDINGS: COPD changes are again noted. There has been interval improvement of the mild infiltrate at the right lung base seen on the previous study. No new consolidation is identified. Cardiac silhouette is stable. IMPRESSION: Interval improvement as described. Electronically signed by Mahendra Borges 07/27/2019 8:01 AM
[2019-07-27] MEDS: MUCOMYST 20% INH SCH (08:10)
[2019-07-27] MEDS: BREO ELLIPTA 200/25 MCG INH INH SCH (08:11)
[2019-07-27] MEDS: ASPIRIN PO SCH (08:35)
[2019-07-27] MEDS: TENORMIN PO SCH (08:35)
[2019-07-27] MEDS: PRINIVIL PO SCH (08:35)
[2019-07-27] MEDS: PLAVIX PO SCH (08:35)
[2019-07-27] MEDS: HEPARIN SUBQ SCH (08:35)
[2019-07-27] MEDS: MEGACE PO SCH (08:35)
[2019-07-27] MEDS: LASIX PO SCH (08:35)
[2019-07-27] MEDS: NEURONTIN PO SCH (08:35)
[2019-07-27 11:58] VITALS: BP 109/37
--- NOTE | 2019-07-28 08:57 | Extremity Venous Study ---
PROCEDURE NAME: Venous U/S Bilateral Legs - 07/24/2019 STUDY PERFORMED/EQUIPMENT USED: This is the bilateral lower extremity venous duplex and color flow imaging study using the GE vivid E9 ultrasound system with a 9 L-D transducer. REFERRING PHYSICIAN: Harjeet Warren MD. PATIENT INFORMATION: She is an inpatient. INDICATIONS: Shortness of breath. Rule out deep venous thrombosis and pulmonary embolus. WINDOWS 7 DEPLOYMENT LEAD: Tammy Jain, SHILOHT FINDINGS: The right common femoral vein and its branches, deep and superficial femoral veins were satisfactorily imaged. They had flow through them and were compressible. Right popliteal vein and the deep veins below the right knee were all compressible and had flow through them. The superficial veins of the right lower extremity were compressible throughout their length. The left common femoral vein and its branches, deep and superficial femoral veins were also satisfactorily imaged. They had flow through them and were compressible. The left popliteal vein and the deep veins below the left knee were all compressible and had flow through them. The superficial veins the of left lower extremity were compressible throughout their length. INTERPRETATION: No evidence of acute deep or superficial venous thrombosis of the bilateral lower extremities. cc: MD Harjeet Nunes MD
--- NOTE | 2019-07-29 19:47 | DISCHARGE SUMMARY ---
ADMISSION DATE: 07/24/2019 DISCHARGE DATE: 07/27/2019 PERTINENT STUDIES: CTA chest negative for pulmonary embolism, positive for severe COPD and pneumonia in the right middle lobe. Lower extremity Dopplers with no evidence of DVT. Followup chest x-ray with continued COPD changes but interval improvement in the right-sided infiltrate and no new process. Initial sodium 127, discharge sodium 136, initial potassium 3.4, discharge potassium 4.8. ABG with pH 7.35, pCO2 66, PO2 of 79 on 32% FiO2. Lactate 1.1. DISCHARGE DIAGNOSES: 1. Acute on chronic hypoxic and hypercapnic respiratory failure. 2. Pneumonia. 3. Chronic obstructive pulmonary disease exacerbation. 4. Chronic hyponatremia. 5. Hypothyroidism. HOSPITAL COURSE: The patient presented with shortness of breath that had been going on for approximately 2 months, but significantly worse over the last 2 days. There was initially some concern for PTE, but CTA of the chest was negative for clot. It did, however, show pneumonia so her dyspnea and hypoxia were favored to represent COPD exacerbation and pneumonia, rather than PTE. ABG showed low-normal pH with elevated pCO2 and low oxygen. The patient has known severe COPD. Given the low-normal pH, it was thought that the hypercapnia was close to her baseline. She did have significant wheezing on admission. She was placed on steroids, nebulizer treatments and antibiotics with Levaquin. The patient had hyponatremia, but this appears to be a chronic issue for the patient and was not markedly different than what it has been in the past. This did actually improve a little bit over the course of the hospitalization.
== END 2019-07-27 13:00 | disposition home or self-care (01) | DRG 190 ==
LOC: ED 14:16 → EDIPHOLD 20:13 → SUATTDRO 20:13 → 2N 07-25 00:36 → EDIPHOLD 07-25 02:01 → 2N 07-25 04:13
PROVIDERS: ATTEND Internal Medicine

== ENCOUNTER 2019-08-26 12:03 | Inpatient (IN) ==
[2019-08-26] MEDS ORDERED: NS 1,000 ML IV ONE (12:48)
[2019-08-26] MEDS ORDERED: SOLU-MEDROL IV ONE (12:48)
[2019-08-26] MEDS ORDERED: DUONEB (A & A) INH ONE (12:48)
--- NOTE | 2019-08-26 12:58 | Diag Imaging Result Doc PS360 ---
CHEST-1 VIEW - 08/26/2019 INDICATION: poss pneumonia COMPARISON: 07/27/2019 FINDINGS: Stable aortic valve replacement. Stable severe COPD. Heart size is normal. There is worsening pulmonary vascular congestion. There are some faint interstitial infiltrate in the lung bases bilaterally which may represent pulmonary edema. No large pleural effusion. IMPRESSION: Advanced COPD. Pulmonary edema in the lung bases. Electronically signed by Joe Chicas 08/26/2019 12:55 PM
[2019-08-26 13:54] LABS: BASO# 0.03 X1000 (0.0-0.2); BASO% 0.2 % (0.0-0.8); HEMATOCRIT 34.7 % (37.0-47.0); HEMOGLOBIN 10.6 g/dL (12.0-16.0); IMM GRAN# 0.05 X1000 (0.0-0.04); IMM GRAN% 0.4 % (0.0-0.5); LYMPH# 0.93 X1000 (1.2-3.4); MCH 30.8 PG (27-31); MCHC 30.5 g/dL (33-37); MCV 100.9 FL (81-99); MONO# 1.63 X1000 (0.11-0.59); MONO% 12.2 % (1.7-9.3); MPV 10.5 FL (7.4-10.4); NEUT# 10.73 X1000 (1.4-6.5); NEUT% 80.2 % (42.2-75.2); PLT 313 X1000 (130-400); RBC 3.44 XMIL (4.2-5.4); WBC 13.37 X1000 (4.8-10.8)
[2019-08-26 14:10] LABS: ALB/GLOB RATIO 1.1; ALBUMIN 3.6 g/dL (3.5-5.0); CREATININE 2.5 mg/dL (0.5-0.9); POTASSIUM 4.2 mmol/L (3.5-5.1); TOTAL BILIRUBIN 0.28 mg/dL (0.20-1.00); TOTAL PROTEIN 6.8 g/dL (6.3-8.3)
[2019-08-26] MEDS ORDERED: LEVAQUIN 750 MG/D5W 750 MG/150 ML IVPB IV ONE (14:34)
[2019-08-26] MEDS ORDERED: ROCEPHIN 1 GM in NS 50 ML IV ONE (14:34)
[2019-08-26] MEDS ORDERED: NS 500 ML IV ONE (15:35)
--- NOTE | 2019-08-26 16:00 | EKG Report ---
Test Performed on : 08/26/2019 12:22:05 PM Test Reason : ER Blood Pressure : / mmHG Vent. Rate : 059 BPM Atrial Rate : 059 BPM P-R Int : 118 ms QRS Dur : 106 ms QT Int : 442 ms P-R-T Axes : 084 054 077 degrees QTc Int : 437 ms Sinus bradycardia. Incomplete left bundle branch block Nonspecific ST abnormality Abnormal ECG When compared with ECG of 24-JUL-2019 16:26, (Unconfirmed) premature atrial complexes. are no longer present Unconfirmed Result
[2019-08-26 16:30] LABS: URINE SOURCE CLEAN CATCH
[2019-08-26 16:36] LABS: BILIRUBIN URINE NEGATIVE (NEGATIVE); BLOOD URINE TRACE (NEGATIVE); COLOR YELLOW; GLUCOSE URINE NEGATIVE (NEGATIVE); KETONE URINE NEGATIVE (NEGATIVE); LEUKOCYTES URINE NEGATIVE (NEGATIVE); NITRITE URINE NEGATIVE (NEGATIVE); PH URINE 5.5; PROTEIN URINE 30 mg/dL (NEGATIVE); SP GRAVITY URINE 1.015; TURBIDITY URINE HAZY (CLEAR); UROBILINOGEN URINE NORMAL (NORMAL)
[2019-08-26 16:37] LABS: UR EPITHELIAL CELLS <10 /HPF (<10); URINE BACTERIA NEGATIVE /HPF; URINE WBC <10 /HPF (<10)
[2019-08-26] MEDS ORDERED: DUONEB (A & A) INH PRN (17:13)
[2019-08-26] MEDS ORDERED: TYLENOL PO PRN (17:17)
[2019-08-26] MEDS ORDERED: ZOFRAN IV PRN (17:17)
[2019-08-26] MEDS ORDERED: DOXYCYCLINE 100 MG in NS 250 ML IV ONE (18:23)
--- NOTE | 2019-08-26 18:49 | PROVIDER DOCUMENTATION ---
This chart was entered by Macarena Ponce Scribe, acting as scribe for Filemon Watt MD. HPI-Respiratory General - General Chief Complaint: B/P Problems Stated Complaint: hypotension Time Seen by Provider: 08/26/19 12:45 Source: patient Allergies/Adverse Reactions: Patient Allergies Allergy/AdvReac Type Severity Reaction Status Date / Time adhesive tape Allergy RASH Verified 08/26/19 15:26 budesonide [From Symbicort] Allergy HIVES Verified 08/26/19 15:26 formoterol fumarate * Allergy HIVES Verified 08/26/19 15:26 [From Symbicort] Penicillins Allergy Unknown Verified 08/26/19 15:26 Home Medications: Home Medication List Medication Instructions Recorded Confirmed Last Taken Type Atenolol 50 mg PO DAILY 01/11/16 08/26/19 06/04/19 06:30 History LISINOpril [Prinivil] 5 mg PO DAILY 01/11/16 08/26/19 06/03/19 08:00 History Levothyroxine [Synthroid] 75 microgm PO DAILY 01/11/16 08/26/19 06/03/19 08:00 History Fluticasone/Vilanterol [Breo 1 inh INH DAILY 03/10/19 08/26/19 06/03/19 06:30 History Ellipta 200-25 Mcg INH] Gabapentin 300 mg PO DAILY 03/10/19 08/26/19 06/03/19 21:00 History Mirtazapine 15 mg PO DAILY 03/10/19 08/26/19 06/03/19 08:00 History ATORVAstatin [Lipitor] 20 mg PO QHS 06/02/19 08/26/19 06/03/19 08:00 History Aspirin 81 mg PO DAILY 06/02/19 08/26/19 05/30/19 History Clopidogrel [Plavix] 75 mg PO DAILY 06/02/19 08/26/19 06/03/19 21:00 History Furosemide 40 mg PO DAILY 06/02/19 08/26/19 06/03/19 08:00 History Alprazolam [Xanax] 0.25 mg PO BID PRN 07/19/19 08/26/19 Unknown History Hydrocodone/APAP 5 mg/325 mg 1 ea PO Q6H PRN PRN #14 tab 08/08/19 08/26/19 Unknown Rx [[facility]-5] - History of Present Illness-Resp Nature of Presenting Problem: Patient is a 73 year old female who presents with shortness of breath. States she was recently diagnosed with pneumonia by her PCP. Does not report cough or fever. Severity in ED: reports: mild Onset/Duration: reports: gradual Timing: reports: still present Associated Symptoms: reports: shortness of breath Similar Symptoms Previously?: Yes Recently seen or treated by another doctor?: Yes Review of Systems - Adult - REVIEW OF SYSTEMS - ADULT Constitutional: reports: no symptoms reported Eyes: reports: no symptoms reported Ears, Nose, Mouth & Throat: reports: no symptoms reported Cardiovascular: reports: no symptoms reported Respiratory: reports: see HPI, shortness of breath Gastrointestinal: reports: no symptoms reported Genitourinary: reports: no symptoms reported Musculoskeletal: reports: no symptoms reported Integumentary: reports: no symptoms reported Neurological: reports: no symptoms reported Psychiatric: reports: no symptoms reported Endocrine: reports: no symptoms reported Hematologic/Lymphatic: reports: no symptoms reported Allergic/Immunologic: reports: no symptoms reported All Other Systems: Reviewed and Negative Past History - Adult - PAST MEDICAL HISTORY-ADULT Review of Records: reports: Old Records Reviewed, Nursing Assessment Review, Medications Reviewed, Social history reviewed & non-contributory. Major Childhood Illnesses: reports: denies history Cardiovascular: reports: HTN Respiratory: reports: asthma, COPD Gastrointestinal: reports: denies history Obstetrical/Gynecological: reports: denies history Genitourinary: reports: denies history Musculoskeletal: reports: denies history Neurological: reports: denies history Psychiatric: reports: anxiety Endocrine/Immune: reports: thyroid disorder (hypo) Other Conditions: reports: denies history - PRIOR SURGERIES/PROCEDURES Surgical/Procedure History: reports: recent surgery (had cardiac sx 04/2019 and recently had cyst removed from rt elbow), reviewed, not pertinent - IMMUNIZATION STATUS Childhood Immunizations: See Nurse Assessment Flu Vaccine: See Nurse Assessment - FAMILY HISTORY Family History: reviewed, not pertinent - SOCIAL HISTORY Smoking: cigarettes (former) Substance Use: denies Physical Exam-General - PHYSICAL EXAM-ADULT Initial Vital Signs Reviewed: Yes - CONSTITUTIONAL General Appearance: alert, no apparent distress - RESPIRATORY Respiratory: chest non-tender, lungs clear, normal breath sounds - CARDIOVASCULAR Cardiovascular: regular rate, rhythm, no gallop, no murmur - GASTROINTESTINAL (ABDOMEN) Abdominal Exam: normal bowel sounds, non tender, soft - MUSCULOSKELETAL Extremity: other (walking boot to left lower leg) - SKIN Integumentary: normal color, normal turgor, warm/dry - NEUROLOGIC Neurologic: grossly normal - PSYCHIATRIC Psych/Mental Status: normal mood/affect, normal thought content, normal thought process, oriented x 3 Progress - PLAN OF CARE/RESULTS Progress/Plan/Lab Results: Vital Signs - 8 hr 08/26/19 12:13 08/26/19 12:42 08/26/19 13:03 Temperature 97.1 F L Pulse Rate 85 56 L 59 L Respiratory Rate 22 17 15 Blood Pressure 83/45 90/39 81/34 O2 Sat by Pulse Oximetry 100 99 100 08/26/19 13:30 08/26/19 13:41 08/26/19 13:45 Temperature Pulse Rate 57 L 58 L 57 L Respiratory Rate 22 22 16 Blood Pressure 96/47 O2 Sat by Pulse Oximetry 08/26/19 13:48 08/26/19 14:00 08/26/19 14:02 Temperature Pulse Rate 58 L 63 61 Respiratory Rate 21 21 16 Blood Pressure 93/30 93/34 O2 Sat by Pulse Oximetry 08/26/19 14:15 08/26/19 14:25 08/26/19 14:30 Temperature Pulse Rate 63 64 67 Respiratory Rate 14 17 20 Blood Pressure 120/45 O2 Sat by Pulse Oximetry 08/26/19 14:32 08/26/19 14:45 08/26/19 14:49 Temperature Pulse Rate 64 69 67 Respiratory Rate 23 18 17 Blood Pressure 101/52 O2 Sat by Pulse Oximetry 08/26/19 14:56 08/26/19 14:57 08/26/19 15:00 Temperature Pulse Rate 69 69 70 Respiratory Rate 24 18 20 Blood Pressure 116/52 O2 Sat by Pulse Oximetry 08/26/19 15:03 08/26/19 15:17 08/26/19 15:30 Temperature Pulse Rate 70 72 72 Respiratory Rate 17 20 19 Blood Pressure 141/73 98/61 O2 Sat by Pulse Oximetry 92 L 08/26/19 15:45 08/26/19 16:24 08/26/19 16:26 Temperature Pulse Rate 84 71 Respiratory Rate 19 24 17 Blood Pressure 89/54 O2 Sat by Pulse Oximetry 97 08/26/19 16:30 08/26/19 16:33 08/26/19 16:45 Temperature Pulse Rate Respiratory Rate 14 22 18 Blood Pressure 111/52 O2 Sat by Pulse Oximetry 100 08/26/19 17:00 08/26/19 17:15 08/26/19 17:30 Temperature Pulse Rate 71 67 68 Respiratory Rate 15 19 23 Blood Pressure O2 Sat by Pulse Oximetry 99 100 08/26/19 17:32 08/26/19 17:34 08/26/19 17:45 Temperature Pulse Rate 69 71 75 Respiratory Rate 22 19 19 Blood Pressure 128/34 O2 Sat by Pulse Oximetry 95 08/26/19 17:47 08/26/19 18:00 08/26/19 18:02 Temperature Pulse Rate 73 69 70 Respiratory Rate 19 18 18 Blood Pressure 96/55 113/40 O2 Sat by Pulse Oximetry 98 95 93 L 08/26/19 18:17 08/26/19 18:30 08/26/19 18:32 Temperature Pulse Rate 72 73 73 Respiratory Rate 16 16 18 Blood Pressure 119/59 104/46 O2 Sat by Pulse Oximetry 98 98 Laboratory Results - last 24 hr 08/26/19 08/26/19 08/26/19 12:32 13:00 13:32 WBC 13.37 H RBC 3.44 L Hgb 10.6 L Hct 34.7 L MCV 100.9 H MCH 30.8 MCHC 30.5 L RDW Std Deviation 15.0 H Plt Count 313 MPV 10.5 H Immature Gran % (Auto) 0.4 Neut % (Auto) 80.2 H Lymph % (Auto) 7.0 L [place] % (Auto) 12.2 H Eos % (Auto) 0.0 Baso % (Auto) 0.2 Immature Gran # (Auto) 0.05 H Neut # (Auto) 10.73 H Lymph # (Auto) 0.93 L [place] # (Auto) 1.63 H Eos # (Auto) 0.00 Baso # (Auto) 0.03 Sodium 138 Potassium 4.2 Chloride 95 L Carbon Dioxide 25 Anion Gap 18 BUN 38 H Creatinine 2.5 H Estimated GFR/1.73 m2 19 BUN/Creatinine Ratio 15 Glucose 97 Calculated Osmolality 285 Calcium 9.0 Total Bilirubin 0.28 AST 30 ALT 12 Alkaline Phosphatase 81 Creatine Kinase 55 Troponin T High Sens Total Protein 6.8 Albumin 3.6 Globulin 3.2 Albumin/Globulin Ratio 1.1 Plasma Lactate 1.8 Urine Source Urine Color Urine Turbidity Urine pH Ur Specific [place] Urine Protein Ur Glucose (Stick) Ur Ketones (Stick) Urine Blood Urine Nitrite Urine Bilirubin Urobilinogen Dipstick Urine Leukocytes Urine WBC (Auto) Urine RBC (Auto) U Epithel Cells (Auto) Urine Bacteria (Auto) 08/26/19 08/26/19 08/26/19 13:32 16:22 16:52 WBC RBC Hgb Hct MCV MCH MCHC RDW Std Deviation Plt Count MPV Immature Gran % (Auto) Neut % (Auto) Lymph % (Auto) [place] % (Auto) Eos % (Auto) Baso % (Auto) Immature Gran # (Auto) Neut # (Auto) Lymph # (Auto) [place] # (Auto) Eos # (Auto) Baso # (Auto) Sodium Potassium Chloride Carbon Dioxide Anion Gap BUN Creatinine Estimated GFR/1.73 m2 BUN/Creatinine Ratio Glucose Calculated Osmolality Calcium Total Bilirubin AST ALT Alkaline Phosphatase Creatine Kinase Troponin T High Sens 49 H Total Protein Albumin Globulin Albumin/Globulin Ratio Plasma Lactate 3.2 H Urine Source CLEAN CATCH Urine Color YELLOW Urine Turbidity HAZY Urine pH 5.5 Ur Specific [place] 1.015 Urine Protein 30 A Ur Glucose (Stick) NEGATIVE Ur Ketones (Stick) NEGATIVE Urine Blood TRACE A Urine Nitrite NEGATIVE Urine Bilirubin NEGATIVE Urobilinogen Dipstick NORMAL Urine Leukocytes NEGATIVE Urine WBC (Auto) <10 Urine RBC (Auto) 10-20 A U Epithel Cells (Auto) <10 Urine Bacteria (Auto) NEGATIVE Orders Category Date Time Status Admit - [facility] Routine AdmDCTranf 08/26/19 17:11 Active Activity - Up with Assistance ORDERED Care 08/26/19 17:11 Active Cardiac Monitoring DIRECTED Care 08/26/19 12:18 Active IV Insertion ORDERED Care 08/26/19 12:18 Completed Intake and Output-Strict ORDERED Care 08/26/19 17:11 Active Notify Physician As Ordered Care 08/26/19 12:18 Active Nursing- Assist w/ IS as order ORDERED Care 08/26/19 17:16 Active Saline Loc NOW Care 08/26/19 14:34 Active Up in Chair TID Care 08/26/19 17:16 Active Vital Signs Order Q 8-HR ASSESS Care 08/26/19 17:11 Active Z-Document. for Tele Applied ORDERED Care 08/26/19 17:12 Active CHEST-1 VIEW [RAD] Stat Exams 08/26/19 12:17 Completed BASIC METABOLIC PANEL [CHEM] Routine Lab 08/27/19 05:00 Ordered BLOOD CULTURE [BLDCUL] Stat Lab 08/26/19 12:32 Results CBC WITH ELECTRONIC DIFF [HEME] Stat Lab 08/26/19 12:32 Completed CBC WITH NO DIFF [HEME] Routine Lab 08/27/19 05:00 Ordered CK PROFILE [SP CHEM] Stat Lab 08/26/19 13:32 Completed COMPREHENSIVE METABOLIC PANEL [CHEM] Stat Lab 08/26/19 13:32 Completed INFLUENZA SCREEN A/B Stat Lab 08/26/19 18:26 Uncollected LACTATE, PLASMA [CHEM] Lab 08/26/19 13:00 Completed LACTATE, PLASMA [CHEM] Lab 08/26/19 16:52 Completed LACTATE, PLASMA [CHEM] Lab 08/26/19 18:30 Uncollected PROTIME WITH INR [COAG] Stat Lab 08/26/19 13:36 Ordered PTT [COAG] Stat Lab 08/26/19 13:36 Ordered TROPONIN T HIGH SENSITIVITY Stat Lab 08/26/19 13:32 Completed URINALYSIS W/POSS RFLX CULT [URINALYSIS] Stat Lab 08/26/19 16:22 Completed 0.9% Sodium Chloride Inj [Ns] 1,000 ml Med 08/26/19 17:15 Active IV 75 mls/hr 0.9% Sodium Chloride Inj [Ns] 1,000 ml Med 08/26/19 12:48 Discontinued IV 999 mls/hr 0.9% Sodium Chloride Inj [Ns] 500 ml Med 08/26/19 15:35 Discontinued IV 999 mls/hr Acetaminophen [Tylenol] Med 08/26/19 17:17 Active 650 mg PO Q6H PRN PRN Albuterol 2.5MG/Ipratrop 0.5MG [Duoneb (A & A)] Med 08/26/19 12:48 Discontinued 3 ml INH NOW ONE Albuterol 2.5MG/Ipratrop 0.5MG [Duoneb (A & A)] Med 08/26/19 17:13 Active 3 ml INH Q2H PRN PRN Albuterol 2.5MG/Ipratrop 0.5MG [Duoneb (A & A)] Med 08/26/19 19:30 Active 3 ml INH RTQ4H Aztreonam [Azactam] 2 gm Med 08/26/19 18:30 Ordered 0.9% Sodium Chloride Inj [Ns] 100 ml IV Q8H CefEPIME 2 GM/NS [Maxipime 2 gm/Ns] Med 08/26/19 19:00 Discontinued 2 gm in 100 ml IV Q12H CefTRIAXONE [Rocephin] 1 gm Med 08/26/19 14:34 Discontinued 0.9% Sodium Chloride Inj [Ns] 50 ml IV NOW Doxycycline 100 mg Med 08/26/19 18:23 Active 0.9% Sodium Chloride Inj [Ns] 250 ml IV NOW Doxycycline 100 mg Med 08/27/19 09:00 Ordered 0.9% Sodium Chloride Inj [Ns] 250 ml IV Q12H Levofloxacin 250 mg/D5w [Levaquin 250 mg/D5w] Med 08/27/19 17:30 Active 250 mg in 50 ml IV Q24H Levofloxacin 750 mg/D5w [Levaquin 750 mg/D5w] Med 08/26/19 14:34 Discontinued 750 mg in 150 ml IV NOW Levofloxacin 750 mg/D5w [Levaquin 750 mg/D5w] Med 08/27/19 09:00 Discontinued 750 mg in 150 ml IV Q24H Methylprednisolone Sod Succ [Solu-Medrol] Med 08/26/19 12:48 Discontinued 125 mg IV NOW ONE Methylprednisolone Sod Succ [Solu-Medrol] Med 08/26/19 22:00 Active 60 mg IV Q8H Ondansetron [Zofran] Med 08/26/19 17:17 Active 4 mg IV Q4H PRN PRN Aerosol Treatments Routine Ot 08/26/19 12:48 Completed Aerosol Treatments Routine Ot 08/26/19 17:13 Active Aerosol Treatments Stat [facility] [place] 08/26/19 12:48 Completed Incentive Spirometer Routine Ot 08/26/19 17:16 Active Oxygen Device Routine Ot 08/26/19 17:17 Active Oxygen Device Stat Ot 08/26/19 12:18 Completed Pneumonia (suspected) Stat Ot 08/26/19 12:17 Ordered Pulse Oximetry Stat Ot 08/26/19 14:34 Completed Telemetry [OM.EQ] Routine Ot 08/26/19 17:11 Active EKG [EKG] Stat Ther 08/26/19 12:22 Draft Transfer/Admit Order [TRANSFER] Routine Transfer 08/26/19 17:18 Ordered Result Diagrams: 08/26/19 12:32 08/26/19 13:32 - EKG 1 Time of EKG reading by physician:: 12:22 EKG Read and Signed by:: Filemon Watt EKG Interpretation (*Must complete 3 of following elements*): Abnormal Rate: 59 Rhythm: sinus bradycardia [place]: normal QRS: LBB (incomplete) SC Interval: normal Comments: nonspecific ST abnormality. - XRAY 1 XRAY Study: Chest Impression: See EMR Report ( CHEST-1 VIEW - 08/26/2019 INDICATION: poss pneumonia COMPARISON: 07/27/2019 FINDINGS: Stable aortic valve replacement. Stable severe COPD. Heart size is normal. There is worsening pulmonary vascular congestion. There are some faint interstitial infiltrate in the lung bases bilaterally which may represent pulmonary edema. No large pleural effusion. IMPRESSION: Advanced COPD. Pulmonary edema in the lung bases. Electronically signed by Joe Chicas 08/26/2019 12:55 PM 08/26/19 1255 Interpreting Physician: Joe Chicas MD Dictated Date/Time: 08/26/19 1253 cc: Filemon Watt MD; Deborah Noel) - CONSULTS/PCP/HOSPITALIST Notification #1 *Consult/PCP/Hospitalist*: Hospitalist paged at 1503 Time Discussed: 15:09 Reason/Comments: Dr. Watt consulted with Estephanie about patient. Consult Disposition: Will see in ED, Admit Departure - Departure Date of Disposition Decision: 08/26/19 Time of Disposition Decision: 15:10 DIAGNOSIS: Pneumonia Qualifiers: Pneumonia type: due to unspecified organism Laterality: unspecified laterality Lung location: unspecified part of lung Qualified Code(s): J18.9 - Pneumonia, unspecified organism Disposition: ADMITTED INPATIENT 09 Certified Medical Emergency: Emergent Condition: Stable Referrals and Follow-Ups: Deborah Noel [Primary Care Provider] - - Critical Care Note This patient required my direct & personal management of CC.: No Attestation - Physician/ LUISITO Attestation The physician spent face to face time with patient:: Yes Advanced Practice Provider documentation review:: Supervising physician onsite and consulted in the evaluation and care of this patient. The physician did have a face to face encounter with the patient. This chart was documented by the indicated scribe, (Macarena Ponce Scribe) and accurately reflects the services I performed and decisions made by me, Filemon Watt MD, as attested by the provider's signature.
[2019-08-26] MEDS ORDERED: MAXIPIME 2 GM/NS 2 GM/100 ML IVPB IV SCH (19:00)
[2019-08-26] MEDS: NS 1,000 ML IV SCH (19:58)
--- NOTE | 2019-08-26 19:58 | HISTORY AND PHYSICAL ---
ADDENDUM REPORT: I have seen and examined Ms. Barker today in the emergency room. was at the bedside at the time of the encounter. Ms. Barker, who has a history of COPD on home [address] follows up with Dr. Howard Lee. Her PCP is Dr. Kirsten Noel. Went to see Dr. Kirsten Noel today for a regular appointment, but she also said that she has been remarkably feeling fatigued, coughing with green expectoration for the past couple days. Upon presenting to Dr. Noel's office, she was found to be remarkably hypoxemic and she was advised to come to the emergency room. Over here in the emergency room, her oxygenation was actually okay on admission. However, she is hypotensive. PHYSICAL EXAM: GENERAL: Positive is that Ms. Barker is a 73-year-old elderly female. She looks undernourished. HEENT: Mucosa is slightly dry. CHEST: Air entry was bilaterally reduced. There is diffuse end expiratory wheezing and some crackles in the posterior lung carey. CARDIOVASCULAR: Regular rate and rhythm GI: Abdomen as soft. EXTREMITIES: No pedal edema. DEBRANDER: Patient was awake, alert, and oriented. LABORATORY: Data has been reviewed. The patient has microcytic anemia with acute kidney injury. Creatinine is 2.5. A chest x-ray shows advanced COPD, pulmonary edema in the lung bases. ASSESSMENT: 1. Acute on chronic hypoxemic respiratory failure. The patient is back on supplemental oxygen as what she normally takes at home. O2 saturation was actually normal when she came to the ER, but she said it was somewhere low [address] Dr[address] Kirsten Noel's office. 2. Bilateral lower lobe infiltrates concerning for pneumonia. The patient has a history of Pseudomonas in the past, so we are going to double cover for Pseudomonas. She is allergic to penicillins and the review of the previous Pseudomonas sensitivity revealed resistance to ceftazidime as well as cefepime. So we will go with Levaquin and aztreonam I will also empirically cover her for methicillin resistant Staphylococcus aureus. 3. Chronic obstructive pulmonary disease exacerbation. Will continue with standard of care. 4. Clinical volume depletion with acute kidney injury. Continue with the IV fluids. 5. Hypotension. I think this is a combination of intravascular depletion as well as medications that the patient takes at home including lisinopril and Lasix. These have been withheld and we will try to avoid any nephrotoxin. All medications will also be renally dosed. Please refer to the details of the history and physical that has been dictated by the [employer] in the chart. I have discussed the findings and my plans with the patient and the who was at the bedside at the time of the encounter. cc: Kike Waller MD
[2019-08-26] MEDS: LIPITOR PO SCH (20:06)
[2019-08-26] MEDS: DUONEB (A & A) INH SCH ×2 (20:18→23:34)
--- NOTE | 2019-08-26 21:48 | HISTORY AND PHYSICAL ---
CHIEF COMPLAINT: Shortness of breath, productive cough, hypoxemia. HISTORY OF PRESENT ILLNESS: This is a 73-year-old female with a history of COPD who presented to the emergency room with shortness of breath. Priorly, she was seen by her primary care physician, found to be hypotensive as well as hypoxemic, although I do not have any blood pressures from the office. On arrival to the emergency room, she had blood pressures in the 80 systolic. After receiving 2 L of IV fluids, blood pressures have increased to the 100 to 120 systolic range. Miss Barker reports increasing shortness of breath, feeling fatigued and a cough with a productive green cough for the past couple of days. She was found to have bilateral lower lobe infiltrates concerning for pneumonia. Blood cultures were obtained. Miss Barker has had Pseudomonas in the past with resistance to ceftazidime and cefepime. PAST MEDICAL HISTORY: Hypothyroid, hypertension, COPD, anxiety. PAST SURGICAL HISTORY: Breast tumor removed, right elbow surgery, hysterectomy. SOCIAL HISTORY: She denies alcohol, tobacco, or illicit drug use. ALLERGIES: Adhesive tape, Symbicort, and penicillins. HOME MEDICATIONS: A list will be obtained by the nursing staff and once verified we will review and restart as appropriate. REVIEW OF SYSTEMS: Discussed with patient with pertinent positives stated in the HPI. She denied any syncope, dizziness, any chest pain or palpitations, any nausea, vomiting, diarrhea, constipation, black or bloody vomitus or stools, any hematuria, dysuria, frequency or urgency. PHYSICAL EXAMINATION: GENERAL: This is a 73-year-old female who is sitting up on the stretcher in the emergency room in no distress. VITAL SIGNS: Blood pressure is 141/73 with heart rate of 70, respirations are 17, temperature is 97.1 degrees oral with O2 saturations that are 93 to 98 percent on 2 L nasal cannula. EYES: Pupils are equal, round, react to light. EOMs are intact. Sclerae anicteric. HEENT: Head is normocephalic, atraumatic. Mucous membranes are dry. NECK: Supple. Trachea midline. CARDIOVASCULAR: Regular rate and rhythm. S1 and S2 appreciated. EXTREMITIES: She has no lower extremity edema. Calves are nontender bilateral peripheral pulses palpable x4 extremities. PULMONARY: Breath sounds are very diminished. She does have some diffuse expiratory wheezes throughout with some crackles in the posterior with right greater than left. GASTROINTESTINAL: Abdomen is soft, nontender, nondistended. Bowel sounds in all 4 quadrants. NEUROLOGIC: She is alert oriented x3. SKIN: Warm and dry. LABS: WBC is 13 with hemoglobin 10.6, hematocrit 34.7, platelets of 313,000. Sodium 138, potassium 4.2, BUN 38, creatinine 2.5 with a glucose of 97. Urinalysis is essentially negative. Blood cultures are pending. Chest x-ray revealed faint interstitial infiltrates in the lung bases. ASSESSMENT AND PLAN: 1. Acute on chronic hypoxemic respiratory failure. We will continue supplemental oxygen as she uses at home. 2. Bilateral lower lobe infiltrates concerning for pneumonia. Blood cultures have been obtained. Antibiotic coverage of Levaquin and aztreonam and further antibiotics will be culture driven. 3. Chronic obstructive pulmonary disease, acute exacerbation. DuoNeb q.4 hours with q.2 hours with steroids to taper. We will identify any home medications and continue as appropriate. 4. Hypotension. Blood pressures are improved after IV hydration. We will hold her lisinopril and Lasix. 5. Acute kidney injury. We will hold any renal toxic medications. Renal dose medications as appropriate. We will check a CBC and BMP in the morning. 6. We will add doxycycline 100 mg IV q.12 hours. Patient was examined and plan was discussed with Dr. Waller. Dictated by CARTER Contreras for Kike Waller MD cc: CARTER Contreras MD
[2019-08-26] MEDS: SOLU-MEDROL IV SCH (22:35)
[2019-08-26] MEDS: AZACTAM 2 GM in NS 100 ML IV SCH (22:35)
[2019-08-26 23:00] LABS: INR 1.09; PROTIME 14.3 Seconds (11.0-16.0)
[2019-08-26 23:01] LABS: PTT 34.2 Seconds (22.3-41.8)
[2019-08-27] MEDS: DUONEB (A & A) INH SCH ×6 (04:00→23:19)
[2019-08-27] MEDS: AZACTAM 2 GM in NS 100 ML IV SCH ×3 (05:07→20:03)
[2019-08-27 08:11] LABS: HEMATOCRIT 31.6 % (37.0-47.0); HEMOGLOBIN 9.6 g/dL (12.0-16.0); MCHC 30.4 g/dL (33-37); MCV 105.3 FL (81-99); MPV 10.5 FL (7.4-10.4); RDW 14.9 % (11.5-14.5); WBC 17.34 X1000 (4.8-10.8)
[2019-08-27 08:28] LABS: CALCIUM 8.7 mg/dL (8.8-10.2); CREATININE 1.2 mg/dL (0.5-0.9); POTASSIUM 4.5 mmol/L (3.5-5.1)
[2019-08-27] MEDS ORDERED: LEVAQUIN 750 MG/D5W 750 MG/150 ML IVPB IV SCH (09:00)
[2019-08-27] MEDS: PLAVIX PO SCH (09:30)
[2019-08-27] MEDS: ASPIRIN PO SCH (09:30)
[2019-08-27] MEDS: SYNTHROID PO SCH (09:30)
[2019-08-27] MEDS: SOLU-MEDROL IV SCH ×3 (09:31→22:44)
[2019-08-27] MEDS: DOXYCYCLINE 100 MG in NS 250 ML IV SCH ×2 (09:31→21:12)
[2019-08-27] MEDS: LEVAQUIN 250 MG/D5W 250 MG/50 ML IVPB IV SCH (17:48)
--- NOTE | 2019-08-27 18:14 | PROGRESS NOTE ---
DATE: 08/27/2019 SUBJECTIVE: I have seen and examined Ms. Barker today. Ms. Barker refers to be doing a lot better, feels relatively stronger than yesterday. OBJECTIVE: Vital signs: Blood pressure is 109/42, pulse of 84, respiration is 18, temperature is 97.8 degrees. Patient is saturating 96% on nasal cannula. General: Ms. Barker is a 73-year-old, elderly female. She is in bed, seemingly no distress. HEENT: Mucosa is pink and moist. Anicteric, acyanotic. Neck: Supple. Chest: Good air entry bilaterally. A few diffuse expiratory wheezes. No crackles. Cardiovascular: Regular rate and rhythm. There are no murmurs, no rubs, no gallops. Gastrointestinal: Abdomen is soft. Extremities: No pedal edema. Central nervous system: Patient is awake, alert, and oriented. There is no focal deficit. LABORATORY DATA: WBC is up to 17.34, hemoglobin is 9.6, platelet count of 279,000. Chemistry was also reviewed. Creatinine is down to 1.2 and BUN is down to 29. So far, blood cultures are still pending. The influenza serology is negative. ASSESSMENT: 1. Acute on chronic hypoxemic respiratory failure. The patient seems to be saturating well on the current oxygen therapy. 2. Bilateral lower lobe infiltrate concerning for pneumonia. Patient is on antimicrobial therapy. 3. Chronic obstructive pulmonary disease exacerbation. We will continue with steroids, antibiotics, and nebulizations. 4. Clinical volume depletion associated with acute kidney injury. Improving with fluids. 5. Hypotension. Resolved. PLAN: In general, I think Ms. Barker is doing a whole lot better. She feels stronger. We will get Physical Therapy to see her today. We are going to continue with the gentle fluids and re- evaluate her in the morning. cc: Kike Waller MD
[2019-08-27] MEDS: LIPITOR PO SCH (20:03)
[2019-08-27] MEDS: XANAX PO PRN (20:03)
[2019-08-28] MEDS: DUONEB (A & A) INH SCH ×6 (03:46→23:25)
[2019-08-28] MEDS: SOLU-MEDROL IV SCH ×2 (05:32→14:49)
[2019-08-28] MEDS: AZACTAM 2 GM in NS 100 ML IV SCH ×3 (05:33→20:41)
[2019-08-28] MEDS: DOXYCYCLINE 100 MG in NS 250 ML IV SCH ×2 (08:52→22:15)
[2019-08-28] MEDS: SYNTHROID PO SCH (08:53)
[2019-08-28] MEDS: ASPIRIN PO SCH (08:53)
[2019-08-28] MEDS: PLAVIX PO SCH (08:53)
[2019-08-28 08:58] LABS: AGAP 8; ALBUMIN 3.1 g/dL (3.5-5.0); BUN 26 mg/dL (8-22); CALCIUM 9.6 mg/dL (8.8-10.2); CHLORIDE 109 mmol/L (98-107); COSMO 294; CREATININE 0.8 mg/dL (0.5-0.9); ESTIMATED GFR > 60; GLUCOSE 135 mg/dL (70-104); PHOSPHORUS 2.5 mg/dL (2.7-4.5); POTASSIUM 4.8 mmol/L (3.5-5.1); SODIUM 144 mmol/L (136-145); TCO2 27 mmol/L (25-35)
[2019-08-28] MEDS: XANAX PO PRN ×2 (10:24→20:40)
[2019-08-28] MEDS: NS 1,000 ML IV SCH (10:24)
[2019-08-28] MEDS ORDERED: LASIX IV ONE (15:37)
[2019-08-28] MEDS ORDERED: BLISTEX MEDICATED BERRY LIP BALM TOP PRN (16:49)
[2019-08-28] MEDS ORDERED: AYR NASAL SPRAY NAS PRN (16:49)
[2019-08-28] MEDS: LEVAQUIN 250 MG/D5W 250 MG/50 ML IVPB IV SCH (17:30)
--- NOTE | 2019-08-28 19:48 | PROGRESS NOTE ---
DATE: 08/28/2019 SUBJECTIVE: This morning Ms. Barker refers to be doing well. She was actually asking when she could potentially be discharged. She is still on supplemental oxygen. Still seems to be having difficulty bringing out her sentences because of shortness of breath. OBJECTIVE: Vital signs: Blood pressure is 134/95, pulse of 99, respirations 18, temperature 97.6 degrees. The patient is saturating 93%. On general exam, Ms. Barker is a 73-year-old female. She is in bed. She seems to be in mild respiratory distress. HEENT: Mucosa is pink and moist. Anicteric. Acyanotic. Neck is supple. No JVD. Chest: Air entry is bilaterally reduced. There is some diffuse expiratory wheezing. No crackles. No rhonchi. Cardiovascular: Regular rate and rhythm. There are no murmurs, no rubs, no gallops. GI: Abdomen is soft, nontender. Bowel sounds present. Extremities: Pedal edema 1+. Distal pulses present. VENDING MACHINE TECHNICIAN: The patient is awake, alert, oriented. Follows commands and moves all extremities. LABORATORY DATA: Chemistry shows that the creatinine is back to 0.8, BUN is 26. So far blood cultures have been 48 hours negative. Influenza has been negative. MEDICATIONS: Reviewed. Methylprednisolone has been reduced to 40 q.12. ASSESSMENT AND PLAN: 1. [id number] hypoxemic respiratory failure. The patient is back to 3 L of supplemental oxygen which she normally takes at home. 2. Bilateral lower lobe infiltrate concerning for pneumonia. The patient is on antimicrobial coverage. She has a history of pseudomonas in the past which she is being empirically covered with. We are still waiting for the sputum cultures. 3. Chronic obstructive pulmonary disease, in exacerbation. We will continue with standard of therapy. 4. Clinical volume depletion with acute kidney injury, resolved. 5. Hypotension, presumably a combination of fluid intravascular depletion and sepsis, improved. 6. Mild fluid overload, with edema in the lower extremities. We will discontinue the intravenous fluids and give the patient onetime dose of Lasix 20 mg. cc: Kike Waller MD
[2019-08-28] MEDS: LIPITOR PO SCH (20:40)
[2019-08-29] MEDS: SOLU-MEDROL IV SCH ×2 (02:38→14:20)
[2019-08-29] MEDS: DUONEB (A & A) INH SCH ×6 (03:47→23:20)
[2019-08-29] MEDS: AZACTAM 2 GM in NS 100 ML IV SCH ×3 (05:11→21:05)
[2019-08-29] MEDS ORDERED: DUONEB (A & A) ONE (07:17)
[2019-08-29 08:42] LABS: AGAP 7; ALBUMIN 2.9 g/dL (3.5-5.0); BUN 38 mg/dL (8-22); CALCIUM 9.4 mg/dL (8.8-10.2); CHLORIDE 108 mmol/L (98-107); COSMO 295; CREATININE 0.8 mg/dL (0.5-0.9); ESTIMATED GFR > 60; GLUCOSE 125 mg/dL (70-104); PHOSPHORUS 2.4 mg/dL (2.7-4.5); POTASSIUM 4.6 mmol/L (3.5-5.1); SODIUM 143 mmol/L (136-145); TCO2 28 mmol/L (25-35)
[2019-08-29] MEDS: SYNTHROID PO SCH (08:49)
[2019-08-29] MEDS: ASPIRIN PO SCH (08:49)
[2019-08-29] MEDS: DOXYCYCLINE 100 MG in NS 250 ML IV SCH ×2 (08:49→21:04)
[2019-08-29] MEDS: PLAVIX PO SCH (08:51)
--- NOTE | 2019-08-29 09:24 | Diag Imaging Result Doc PS360 ---
EXAM: CHEST-2 VIEWS HISTORY: hypoxia TECHNIQUE: Two views COMPARISON: 08/26/2019 FINDINGS: The lungs are hyperexpanded. There has been a valve replaced. No cardiomegaly. Mild increased interstitial markings in the lung bases similar to the prior study. No consolidation. IMPRESSION: Severe emphysema with basilar infiltrates, atelectasis or fibrosis Electronically signed by Josh Collins 08/29/2019 9:22 AM
[2019-08-29] MEDS: LEVAQUIN 250 MG/D5W 250 MG/50 ML IVPB IV SCH (17:02)
[2019-08-29] MEDS: LIPITOR PO SCH (21:05)
[2019-08-29] MEDS: XANAX PO PRN (21:07)
--- NOTE | 2019-08-29 23:23 | CONSULTATION ---
DATE OF CONSULTATION: 08/29/2019 CHIEF COMPLAINT: Shortness of breath, hypoxia. HISTORY OF PRESENT ILLNESS: This is a 73-year-old female with a history of COPD, hypertension, hypothyroidism and anxiety. Recent chest x-ray revealed severe emphysema with basilar infiltrates, atelectasis or fibrosis. PAST MEDICAL HISTORY: Hypothyroidism, hypertension, COPD and anxiety. PAST SURGICAL HISTORY: Breast tumor removed, right elbow surgery and a hysterectomy. SOCIAL HISTORY: Denies alcohol, tobacco or illicit drug use. ALLERGIES: Adhesive tape, Symbicort and penicillin. HOME MEDICATIONS: Please see home reconciliation list. REVIEW OF SYSTEMS: A 10-point review of systems was obtained and the pertinent is listed in the HPI, otherwise noncontributory. PHYSICAL EXAMINATION: General: This is a 73-year-old resting in bed quietly in no acute distress at the present time. Vital Signs: Blood pressure 120/54, temperature 97.8, pulse 94, respirations 16. O2 saturation 100% with O2 at 4 L per nasal cannula. HEENT: Head is atraumatic, normocephalic. Pupils are equal and reactive to light and accommodation. Mucous membranes pink and moist. Neck: Supple. Trachea midline. Cardiovascular: Regular rate and rhythm. S1 and S2 auscultated. Respiratory: Breath sounds very diminished with some wheezing throughout with some crackles worse on the right than left. Gastrointestinal: Abdomen soft, nontender, nondistended. Bowel sounds present in all 4 quadrants. Neurologic: Alert and oriented times 3. LABORATORIES: Potassium 4.6. Sodium 143. Chloride 108. Glucose 125. BUN 38. Creatinine 2.5. DIAGNOSTIC: Mentioned in the HPI. ASSESSMENT AND PLAN: 1. Acute on chronic hypoxemic respiratory failure. Continue supplemental oxygen and we will continue to monitor. 2. Chronic obstructive pulmonary disease, acute exacerbation. Continue bronchodilators, steroids and antibiotics as prescribed. 3. Probable bilateral pneumonia. Continue antibiotics as prescribed. 4. Continue deep venous thrombosis prophylaxis. Thank you for the courtesy of this consult. Dictated by CARTER Miller for Son Martinez MD cc: CARTER Miller MD
[2019-08-30] MEDS: DUONEB (A & A) INH SCH ×6 (03:44→23:28)
[2019-08-30] MEDS: AZACTAM 2 GM in NS 100 ML IV SCH ×3 (04:11→23:07)
[2019-08-30] MEDS: SOLU-MEDROL IV SCH ×2 (04:11→17:31)
[2019-08-30] MEDS: ASPIRIN PO SCH (09:29)
[2019-08-30] MEDS: PLAVIX PO SCH (09:29)
[2019-08-30] MEDS: SYNTHROID PO SCH (09:29)
[2019-08-30] MEDS: DOXYCYCLINE 100 MG in NS 250 ML IV SCH ×2 (10:52→23:07)
--- NOTE | 2019-08-30 12:27 | PROGRESS NOTE ---
DATE: 08/30/2019 SUBJECTIVE: I have seen and examined Ms. Barker today. Her was at the bedside at the time of the encounter, and they were preparing to get breakfast. Ms. Barker refers to be doing a lot better. OBJECTIVE: Vital Signs: Blood pressure 135/79, pulse 108, respirations 24, and temperature is 98.1 degrees. Patient is saturating 92% on 4 L. General: Ms. Barker is a 73-year-old elderly female. She is in bed. She is still in mild respiratory distress. Mucosa is pink and moist. Anicteric. Acyanotic. Neck: Supple. Chest: Air entry is bilaterally reduced. There is just some distant wheezing and some bibasilar crackles. Cardiovascular: Regular rate and rhythm. No murmurs, no rubs, no gallops. GI: Abdomen is soft and nontender. Bowel sounds present. There is no hepatosplenomegaly. Extremities: Trace pedal edema. COSMETIC SALES CONSULTANT: Patient is awake, alert, and oriented. Follows commands. INPUT AND OUTPUT: The patient is making adequate urine. She has not had any bowel movement documented during the hospital course. MICROBIOLOGY: So far, Microbiology data shows blood cultures negative. The sputum shows gram- positive diplococci, but nothing has grown yet. LABORATORY DATA: No laboratory data for today. ASSESSMENT: 1. Acute on chronic hypoxemic respiratory failure. Patient is currently on 3 to 4 L of supplemental oxygen. 2. Bilateral lower lobe infiltrate concerning for pneumonia. Patient has history of Pseudomonas pneumonias in the past so she is being treated empirically for this. 3. End-stage COPD with moderate exacerbation on admission. Patient is on steroids, antibiotics, bronchodilation therapy. Pulmonary Medicine has been consulted. 4. Clinical volume depletion on admission with acute kidney injury resolved. 5. Hypotension presumably a combination of intravascular depletion and sepsis resolved. 6. Moderate to severe pulmonary hypertension by Doppler on echocardiogram done in March of 2019. The patient's pulmonary artery systolic pressure was 55 to 60 mmHg. cc: Kike Waller MD
[2019-08-30] MEDS: LEVAQUIN 250 MG/D5W 250 MG/50 ML IVPB IV SCH (17:31)
[2019-08-30] MEDS: LIPITOR PO SCH (20:01)
[2019-08-31] MEDS: DUONEB (A & A) INH SCH ×3 (03:21→11:24)
[2019-08-31] MEDS: SOLU-MEDROL IV SCH (03:42)
[2019-08-31 05:01] LABS: ALLEN TEST YES; BE 10.4 mmoll (-3.0-3.0); BLOOD TYPE ARTERIAL; HCO3-(ACT) 33.1 mmoll (20.0-26.0); PCO2(98.6) 35 mmHg (35-45); PO2(98.6) 172 mmHg (60-100); SAMPLE BLOOD
[2019-08-31 05:03] LABS: MODALITY CANNULA; pH(98.6) 7.58 (7.35-7.45)
[2019-08-31] MEDS: AZACTAM 2 GM in NS 100 ML IV SCH (05:52)
[2019-08-31 07:58] LABS: INR 1.13; PROTIME 14.7 Seconds (11.0-16.0)
[2019-08-31] MEDS ORDERED: LOVENOX SUBQ SCH (09:00)
[2019-08-31] MEDS: ASPIRIN PO SCH (10:44)
[2019-08-31] MEDS: SYNTHROID PO SCH (10:44)
[2019-08-31] MEDS: PLAVIX PO SCH (10:44)
[2019-08-31] MEDS ORDERED: NS 0 ML ONE (11:02)
[2019-08-31 12:19] VITALS: BP 151/58
--- NOTE | 2019-09-01 07:47 | DISCHARGE SUMMARY ---
ADMISSION DATE: 08/26/2019 DISCHARGE DATE: 08/31/2019 CONSULTATIONS DURING THIS ADMISSION: Pulmonary Medicine was consulted. The patient was seen by Dr. Martinez. INVASIVE PROCEDURES DONE DURING THIS ADMISSION: None. IMAGING STUDIES OF SIGNIFICANCE: A chest x-ray showed advanced an COPD, pulmonary edema in the lung bases. Repeat x-ray 2 days later showed severe emphysema with bilateral infiltrate, atelectasis, or fibrosis. ADMISSION DIAGNOSES: 1. Acute on chronic hypoxemia. 2. Bilateral lower lobe infiltrate concerning for pneumonia. 3. Chronic obstructive pulmonary disease. 4. Clinical volume depletion. 5. Hypotension. DISCHARGE DIAGNOSES: 1. Acute on chronic hypoxemic respiratory failure. The patient is down to 3 liters of supplemental oxygen, which is her baseline. 2. Bilateral lower lobe infiltrates concerning for pneumonia. The patient has a history of Pseudomonas pneumonias in the past. She was empirically treated with antipseudomonal medications. She got better. 3. Severe/end-stage chronic obstructive pulmonary disease with moderate exacerbation, improved during the hospital course. 4. Clinical volume depletion on admission with acute kidney injury, resolved. 5. Hypotension, presumably a combination of intravascular depletion and possible sepsis induced, resolved. 6. [id number] pulmonary hypertension with pulmonary artery systolic pressure of 55 to 60 mmHg on echocardiogram in 03/2019. DISCHARGE MEDICATIONS: 1. Atenolol 50 mg p.o. daily. 2. Levothyroxine 75 mcg p.o. daily. 3. Lisinopril 50 mg p.o. daily. 4. Breo. 5. Gabapentin 300 p.o. daily. 6. Mirtazapine 50 mg p.o. daily. 7. Atorvastatin 20 mg p.o. at bedtime. 8. Furosemide 40 mg p.o. daily. 9. Aspirin 81 mg p.o. daily. 10. Clopidogrel 75 mg p.o. daily. 11. Alprazolam 0.25 b.i.d. 12. [place]. 13. Levofloxacin 500 mg p.o. daily. 14. Prednisone 20 mg p.o. daily. PRESENTING COMPLAINT: Shortness of breath, productive cough, hypoxemia. HISTORY OF PRESENTING COMPLAINT: Ms. Barker is a 73-year-old, female with a history of severe COPD and chronic hypoxemia, on CO2 on 2 to 3 L, who came to the emergency department because of hypotension, hypoxemia, had a systolic blood pressure of 80. She was evaluated, found to have pneumonia with hypotension, was admitted to the medical floor after fluid resuscitation. HOSPITAL COURSE: Ms. Barker improved with fluid, did not need any vasopressor. Blood pressure improved. Because she is allergic to penicillins, she was started on aztreonam, Levaquin, and vancomycin. She did improve throughout the hospital course. Oxygen was titrated down to 2 to 3 L. This morning, she feels a lot better. She still has some residual shortness of breath due to her severe COPD. We did bring up discussion about hospice. However, Ms. Barker told me she did not want to address that for now. According to the , this has already been brought up on multiple occasions, including by her primary care doctor (Dr. Kirsten Noel). She also follows up with Dr. Jain, who is a ug designer in [place]. In any case, this morning, Ms. Barker is clinically stable. She is going to be discharged on 7 more days of Levaquin and steroids. She has been advised to follow up with her primary care doctor, as well as her ug designer. All the discharge instructions have been discussed with her. She voiced understanding. Her as well as her daughter were both at the bedside at the time of the encounter, and they both voiced understanding. TIME SPENT: Time spent for discharge was 35 minutes. cc: Kike Waller MD
== END 2019-08-31 12:54 | disposition home or self-care (01) | DRG 871 ==
LOC: SUPCPDRO → ED 12:03 → 3N 19:21
PROVIDERS: ATTEND Internal Medicine